=== PATIENT | female | born 1945 | race African-American/Black ===

== ENCOUNTER 2018-08-14 11:47 | Inpatient (IN) | payer MEDICARE, OTHER ==
--- NOTE | 2018-08-14 12:29 | PDOC ---
History of Present Illness - General Chief Complaint: Revisit, Lab Variance Stated Complaint: SENT BY PCP Time Seen by Provider: 08/14/18 12:28 History Source: Patient Exam Limitations: No Limitations - History of Present Illness Initial Comments: 08/14/18 12:55 73 yo F with a hx of HTN, DM, and CKD presents to the emergency department upon referral from her PMD for worsening BUN/Creatinine function. Per the patient, she was referred to our emergency department from her PMD Dr. Dye. She states that she has had generalized weakness without FND for 1 week with concurrent 3 weeks of worsening bilateral lower extremity edema. Endorses the followin lb weight loss in 3 months. Denies the following: fever, chills, nausea, vomiting, chest pain, SOB, abdominal pain, dysuria, hematuria, increased urinary frequency, diarrhea, and melena. Denies hx of DVT/PE, recent travels, and recent surgery. Allergies: NKDA Social: Denies tobacco, alcohol, and substance abuse. Past History - Past Medical History Allergies/Adverse Reactions: Allergies Allergy/AdvReac Type Severity Reaction Status Date / Time No Known Allergies Allergy Verified 08/14/18 11:53 Home Medications: Ambulatory Orders Amlodipine Bes/Olmesartan Med [Godfrey 10-40 mg Tablet] 1 each PO DAILY 08/14/18 Aspirin [ASA -] 81 mg PO DAILY 08/14/18 Linagliptin [Tradjenta] 5 mg PO DAILY 08/14/18 Mirtazapine 45 mg PO HS 08/14/18 Omeprazole 40 mg PO DAILY 08/14/18 Ranolazine [Ranolazine ER] 500 mg PO BID 08/14/18 Simvastatin 20 mg PO DAILY 08/14/18 COPD: No Diabetes: Yes HTN: Yes - Suicide/Smoking/Psychosocial Hx Smoking Status: No Smoking History: Never smoked Have you smoked in the past 12 months: No Number of Cigarettes Smoked Daily: 0 Information on smoking cessation initiated: No Hx Alcohol Use: No Drug/Substance Use Hx: No Review of Systems - Review of Systems Able to Perform ROS?: Yes Is the patient limited Hebrew proficient: No Constitutional: Yes: Weakness. No: Chills, Diaphoresis, Fever HEENTM: No: Eye Pain, Recent change in vision, Ear Pain, Nose Pain, Throat Pain , Mouth Pain Respiratory: No: Cough, Shortness of Breath, SOB with Exertion Cardiac (ROS): No: Chest Pain, Lightheadedness, Palpitations, Syncope, Chest Tightness ABD/GI: Yes: Poor Appetite, Poor Fluid Intake. No: Constipated, Diarrhea, Nausea, Rectal Bleeding, Vomiting, Tarry Stools : No: Burning, Dysuria, Hematuria, Incontinence Musculoskeletal: No: Back Pain, Joint Pain, Neck Pain Integumentary: No: Bruising, Erythema, Rash Neurological: No: Headache, Numbness, Tingling, Tremors Psychiatric: Yes: Change in Appetite Endocrine: Yes: Unexplained Weight Loss Hematologic/Lymphatic: No: Easy Bleeding *Physical Exam - Vital Signs Last Vital Signs Temp Pulse Resp BP Pulse Ox 98.2 F 94 H 16 139/70 100 08/14/18 11:49 08/14/18 11:49 08/14/18 11:49 08/14/18 11:49 08/14/18 11:49 - Physical Exam General Appearance: Yes: Nourished, Appropriately Dressed. No: Apparent Distress, Intoxicated HEENT: positive: EOMI, CHRISTOPHER, Normal Voice, Symmetrical, Pharynx Normal, Hearing Grossly Normal. negative: Pale Conjunctivae, Scleral Icterus (R), Scleral Icterus (L), Muffled/Hoarse voice, Pharyngeal Erythema, Tonsillar Exudate, Tonsillar Erythema, Nasal Congestion, Rhinorrhea, Excessive drooling Neck: positive: Trachea midline, Supple. negative: Tender, Lymphadenopathy (R) , Lymphadenopathy (L), Tender lateral, Tender midline Respiratory/Chest: positive: Lungs Clear, Normal Breath Sounds. negative: Chest Tender, Respiratory Distress, Accessory Muscle Use, Decreased Breath Sounds, Rhonchi, Stridor, Wheezing Cardiovascular: positive: Regular Rhythm, Regular Rate, S1, S2. negative: Systolic Murmur Gastrointestinal/Abdominal: positive: Normal Bowel Sounds, Flat, Soft. negative : Tender Lymphatic: negative: Adenopathy Musculoskeletal: positive: Normal Inspection. negative: CVA Tenderness, CVA Tenderness (R), CVA Tenderness (L), Vertebral Tenderness Extremity: positive: Normal Capillary Refill, Normal Range of Motion, Swelling ( 2+ pitting edema bilateral LE). negative: Normal Inspection, Tender, Calf Tenderness Integumentary: positive: Normal Color, Dry, Warm. negative: Rash, Swelling, Ecchymosis Neurologic: positive: headhunter II-XII NML intact, Fully Oriented, Alert, Normal Mood/ Affect, Normal Response, Motor Strength 5/5. negative: EOM Palsy, Facial Droop , Sensory Deficit ED Treatment Course - LABORATORY CBC & Chemistry Diagram: 08/17/18 10:25 08/17/18 10:25 Medical Decision Making - Medical Decision Making 73 yo F with a hx of HTN, DM, and CKD presents to the emergency department upon referral from her PMD for worsening BUN/Creatinine function. Initial vitals: Initial Vital Signs Temp Pulse Resp BP Pulse Ox 98.2 F 94 H 16 139/70 100 08/14/18 11:49 08/14/18 11:49 08/14/18 11:49 08/14/18 11:49 08/14/18 11:49 Work up: ddx: MELISA on CKD vs ESRD vs nephropathy induced secondary to renal artery stenosis vs iGA nephropathy Laboratory Tests 08/14/18 08/14/18 13:15 13:15 WBC 5.7 RBC 2.82 L Hgb 8.8 L Hct 27.0 L MCV 95.5 MCH 31.2 MCHC 32.6 RDW 14.9 Plt Count 412 MPV 8.3 Absolute Neuts (auto) 5.0 Neutrophils % 86.7 H Lymphocytes % 8.8 Monocytes % 3.1 L Eosinophils % 0.2 Basophils % 1.2 Nucleated RBC % 0 Sodium 137 Potassium 5.5 H Chloride 110 H Carbon Dioxide 18 L Anion Gap 9 BUN 70 H Creatinine 7.5 H* Creat Clearance w eGFR 5.31 Random Glucose 205 H Calcium 9.0 Total Bilirubin 0.3 AST 29 ALT 16 Alkaline Phosphatase 93 Creatine Kinase 108 Troponin I 0.03 Total Protein 7.2 Albumin 3.3 L creatinine 7.5 with BUN of 70. Patient has a hemoglobin of 8.8. anemia likely causing the weakness with the concurrent MELISA on CKD. EKG shows NSR without T wave peaks. No st elevations or depressions. potassium of 5.5. CXR shows no infiltrate or effusion. Patient to be admitted for further work up for MELISA on CKD. Dispo: Admit *DC/Admit/Observation/Transfer Diagnosis at time of Disposition: MELISA (acute kidney injury) - Referrals - Patient Instructions - Post Discharge Activity
[2018-08-14 13:20] LABS: BASO % 1.2 % (0-2.0); EOS % 0.2 % (0-4.5); HEMOGLOBIN 8.8 GM/dL (10.7-15.3); LYMPH % 8.8 % (8-40); MCH 31.2 pg (25.7-33.7); MCHC 32.6 g/dl (32.0-36.0); MEAN CELL VOLUME 95.5 fl (80-96); MEAN PLT VOLUME 8.3 fl (7.5-11.1); MONO % 3.1 % (3.8-10.2); NEUT % 86.7 % (42.8-82.8); PLATELET COUNT 412 K/MM3 (134-434); RBC 2.82 M/mm3 (3.60-5.2); RDW 14.9 % (11.6-15.6); WHITE BLOOD COUNT 5.7 K/mm3 (4.0-10.0)
[2018-08-14 13:58] LABS: ALBUMIN 3.3 g/dl (3.4-5.0); ALK PHOS 93 U/L (45-117); ANION GAP 9 MMOL/L (8-16); BILIRUBIN,TOTAL 0.3 mg/dL (0.2-1); BLOOD UREA NITROGEN 70 mg/dL (7-18); CHLORIDE 110 mmol/L (98-107); CO2 18 mmol/L (21-32); GLUCOSE,RANDOM 205 mg/dL (74-106); POTASSIUM 5.5 mmol/L (3.5-5.1); SGOT/AST 29 U/L (15-37); SGPT/ALT 16 U/L (13-61); SODIUM 137 mmol/L (136-145); TOT PROT 7.2 g/dl (6.4-8.2)
--- NOTE | 2018-08-14 14:31 | PDOC ---
Documentation entered by Isaías Sloan SCRIBE, acting as scribe for Pina Saldana MD. Pina Saldana MD: This documentation has been prepared by the Nathalia del rosario Nirvannie, SCRIBE, under my direction and personally reviewed by me in its entirety. I confirm that the documentation accurately reflects all work, treatment, procedures, and medical decision making performed by me. Attending Attestation - Resident Resident Name: Neri Shah - ED Attending Attestation I have performed the following: I have examined & evaluated the patient, The case was reviewed & discussed with the resident, I agree w/resident's findings & plan - HPI HPI: 08/14/18 14:20 The patient is a 73 year old female, with a significant past medical history of HTN, DM, and CKD, who presents to the emergency department with, worsening CKD. While in the ED, patient endorses an associated 1 month of weakness, 3 weeks of blt LE edema, and 3 months of a 30lb weight loss. She denies any decrease in urinary output. Allergies: NKDA Primary Care Physician: Dr. Matthew Dye - Physicial Exam PE: 08/14/18 13:27 GENERAL: The patient is in no acute distress. ENT: Ears normal, nares patent, oropharynx clear without exudates. Moist mucous membranes. NECK: Normal range of motion, supple LUNGS: Breath sounds equal, clear to auscultation bilaterally. No wheezes, and no crackles. HEART:Regular rate and rhythm, normal S1 and S2 without murmur, rub or gallop. ABDOMEN: Soft, nontender, normoactive bowel sounds. EXTREMITIES: Normal range of motion, bilateral 2+ pitting edema to the knees. NEUROLOGICAL: Cranial nerves II through XII grossly intact. Normal speech. No focal neurological deficits. SKIN: Warm, Dry, normal turgor, no rashes or lesions noted. - Medical Decision Making 08/14/18 13:28 73 yo F h/o chronic renal insufficiency presenting with a complaint of generalized weakness Labs were done yesterday and reveal worsening renal insufficiency Pt makes urine No shortness of breath or chest pain Will do: Labs EKG Plan for admission 08/14/18 13:34 Twelve-lead EKG was performed and reviewed by me. There is normal sinus rhythm with a normal rate of 89 bpm. The axis is normal. The intervals are normal. There are no ST elevations or depressions. inferolateral t wave inversions. 08/14/18 13:35 CXR- cardiomegaly, no signs of effusion or infiltrate 08/14/18 14:30 Laboratory Tests 08/14/18 08/14/18 13:15 13:15 WBC 5.7 Hgb 8.8 L Hct 27.0 L Plt Count 412 Sodium 137 Potassium 5.5 H Chloride 110 H Carbon Dioxide 18 L Anion Gap 9 BUN 70 H Random Glucose 205 H Creatine Kinase 108 Troponin I 0.03 Will admit for further management Clinical Impression: renal insufficiency, initial presentation
[2018-08-14 14:41] LABS: CREATININE 7.5 mg/dL (0.55-1.3)
--- NOTE | 2018-08-14 16:23 | CONSULT ---
Consult Consult Specialty:: Nephrology Reason for Consultation:: MELISA - History of Present Illness Chief Complaint: sent in for worsening renal function History of Present Illness: Pt is a 73 year old female with pmhx of DM, HTN, and CKD who was sent in for worsening renal failure. She denies history of CKD. She does not follow up with a npehrologist. She denies shortness of breath but does complain of lower ext edema. She denies dysuria or hematuria. She denies nsaid use. She denies family hx of CKD. She does complain of increased weakness. She complains of poor appetite. She has decreased urine output as well. - History Source History Provided By: Patient, Medical Record - Past Medical History Cardio/Vascular: Yes: HTN, Hyperlipdemia Gastrointestinal: Yes: GERD Endocrine: Yes: Diabetes Mellitus - Alcohol/Substance Use Hx Alcohol Use: No - Smoking History Smoking history: Never smoked Have you smoked in the past 12 months: No Aproximately how many cigarettes per day: 0 Home Medications - Allergies Allergies/Adverse Reactions: Allergies Allergy/AdvReac Type Severity Reaction Status Date / Time No Known Allergies Allergy Verified 08/14/18 11:53 - Home Medications Home Medications: Ambulatory Orders Amlodipine Bes/Olmesartan Med [Godfrey 10-40 mg Tablet] 1 each PO DAILY 08/14/18 Aspirin [ASA -] 81 mg PO DAILY 08/14/18 Linagliptin [Tradjenta] 5 mg PO DAILY 08/14/18 Mirtazapine 45 mg PO HS 08/14/18 Omeprazole 40 mg PO DAILY 08/14/18 Ranolazine [Ranolazine ER] 500 mg PO BID 08/14/18 Simvastatin 20 mg PO DAILY 08/14/18 Family Disease History - Family Disease History Family History: Denies Review of Systems - Review of Systems Constitutional: reports: No Symptoms, Malaise, Unintentional Wgt. Loss Eyes: reports: No Symptoms HENT: reports: No Symptoms Neck: reports: No Symptoms Cardiovascular: reports: No Symptoms Respiratory: reports: No Symptoms Gastrointestinal: reports: No Symptoms Genitourinary: reports: No Symptoms Musculoskeletal: reports: No Symptoms Integumentary: reports: No Symptoms Neurological: reports: No Symptoms Endocrine: reports: No Symptoms Hematology/Lymphatic: reports: No Symptoms Psychiatric: reports: No Symptoms Physical Exam Vital Signs: Vital Signs Temperature 98 F 08/14/18 15:14 Pulse Rate 73 08/14/18 15:14 Respiratory Rate 18 08/14/18 15:14 Blood Pressure 135/63 08/14/18 15:14 O2 Sat by Pulse Oximetry (%) 99 08/14/18 15:14 Constitutional: Yes: Calm Eyes: Yes: Conjunctiva Clear HENT: Yes: Atraumatic Neck: Yes: Supple Cardiovascular: Yes: S1, S2 Respiratory: Yes: CTA Bilaterally Gastrointestinal: Yes: Soft Renal/: Yes: WNL Musculoskeletal: Yes: WNL Edema: Yes Edema: LLE: 1+, RLE: 1+ Neurological: Yes: Oriented Psychiatric: Yes: Oriented Labs: CBC, BMP 08/14/18 13:15 08/14/18 13:15 Laboratory Tests 08/14/18 08/14/18 13:15 13:15 WBC 5.7 Hgb 8.8 L Plt Count 412 Sodium 137 Potassium 5.5 H Chloride 110 H Carbon Dioxide 18 L Anion Gap 9 BUN 70 H Creatinine 7.5 H* Imaging - Results Chest X-ray: Report Reviewed Ultrasound: Report Reviewed Problem List - Problems (1) MELISA (acute kidney injury) Code(s): N17.9 - ACUTE KIDNEY FAILURE, UNSPECIFIED (2) CKD (chronic kidney disease) Code(s): N18.9 - CHRONIC KIDNEY DISEASE, UNSPECIFIED (3) HTN (hypertension) Code(s): I10 - ESSENTIAL (PRIMARY) HYPERTENSION Assessment/Plan Current Medications Generic Name Dose Route Start Last Admin Trade Name Freq PRN Reason Stop Dose Admin Amlodipine Besylate 10 mg 08/15/18 10:00 Norvasc - PO DAILY [facility] Aspirin 81 mg 08/15/18 10:00 Ecotrin - PO DAILY [facility] Heparin Sodium (Porcine) 5,000 unit 08/14/18 22:00 Heparin - SQ BID [facility] Insulin Aspart 1 vial 08/14/18 16:30 Novolog Vial Sliding Scale - SQ ACHS [facility] Protocol Mirtazapine 45 mg 08/14/18 22:00 Remeron - PO HS [facility] Pantoprazole Sodium 40 mg 08/15/18 10:00 Protonix - PO DAILY [facility] Ranolazine 500 mg 08/14/18 22:00 Ranexa - PO BID ASHELY Impression 1. MELISA 2. CKD 3. DM 4. HTN 5. weight loss 6. gerd 7. 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
--- NOTE | 2018-08-14 17:03 | HP ---
Admitting History and Physical - Primary Care Physician PCP: Matthew Dye - Admission Chief Complaint: elevated BUN/Cr History of Present Illness: Patient is a 73 y/o female with past medical history of DM, HTN, and CKD. Patient was sent from PMD office for worsening renal failure with elevated BUN/ Cr 70/7.3. Patient has been non-compliant with following up with nephrology. In ER labs show BUN/Cr 70/7.5. History Source: Patient Limitations to Obtaining History: No Limitations - Past Medical History Cardiovascular: Yes: HTN, Hyperlipdemia Gastrointestinal: Yes: GERD Renal/: Yes: Other (CKD) Endocrine: Yes: Diabetes Mellitus - Past Surgical History Past Surgical History: Yes: None - Smoking History Smoking history: Never smoked Have you smoked in the past 12 months: No Aproximately how many cigarettes per day: 0 - Alcohol/Substance Use Hx Alcohol Use: No - Social History Usual Living Arrangement: Yes: Alone ADL: Independent History of Recent Travel: No Home Medications - Allergies Allergies/Adverse Reactions: Allergies Allergy/AdvReac Type Severity Reaction Status Date / Time No Known Allergies Allergy Verified 08/14/18 11:53 - Home Medications Home Medications: Ambulatory Orders Amlodipine Bes/Olmesartan Med [Godfrey 10-40 mg Tablet] 1 each PO DAILY 08/14/18 Aspirin [ASA -] 81 mg PO DAILY 08/14/18 Linagliptin [Tradjenta] 5 mg PO DAILY 08/14/18 Mirtazapine 45 mg PO HS 08/14/18 Omeprazole 40 mg PO DAILY 08/14/18 Ranolazine [Ranolazine ER] 500 mg PO BID 08/14/18 Simvastatin 20 mg PO DAILY 08/14/18 Review of Systems - Review of Systems Constitutional: reports: Unintentional Wgt. Loss, Weakness Eyes: reports: Blurred Vision HENT: reports: No Symptoms Neck: reports: No Symptoms Cardiovascular: reports: No Symptoms Respiratory: reports: No Symptoms Gastrointestinal: reports: No Symptoms Genitourinary: reports: No Symptoms Breasts: reports: No Symptoms Reported Musculoskeletal: reports: No Symptoms Integumentary: reports: No Symptoms Neurological: reports: No Symptoms Endocrine: reports: No Symptoms Hematology/Lymphatic: reports: No Symptoms Psychiatric: reports: No Symptoms Physical Examination Vital Signs: Vital Signs Temperature 98 F 08/14/18 15:14 Pulse Rate 73 08/14/18 15:14 Respiratory Rate 18 08/14/18 15:14 Blood Pressure 135/63 08/14/18 15:14 O2 Sat by Pulse Oximetry (%) 99 08/14/18 15:14 Constitutional: Yes: No Distress, Calm Eyes: Yes: Conjunctiva Clear HENT: Yes: Atraumatic Neck: Yes: Supple Cardiovascular: Yes: Regular Rate and Rhythm Respiratory: Yes: Regular, CTA Bilaterally Gastrointestinal: Yes: Normal Bowel Sounds, Soft Musculoskeletal: Yes: Muscle Weakness Extremities: Yes: WNL Edema: Yes Edema: LLE: 1+, RLE: 1+ Neurological: Yes: Alert, Oriented Psychiatric: Yes: Alert, Oriented Labs: CBC, BMP 08/14/18 13:15 08/14/18 13:15 Imaging - Results Chest X-ray: Report Reviewed Ultrasound: Report Reviewed Problem List - Problems (1) Diabetes mellitus Assessment/Plan: -BGM ACHS -ISS -HgA1c ordered Code(s): E11.9 - TYPE 2 DIABETES MELLITUS WITHOUT COMPLICATIONS (2) CKD (chronic kidney disease) Assessment/Plan: -renal on board -BUN/Cr 70/7.5 -avoid NSAIDs and nephrotoxin -monitor renal function daily -Renal US shows R hydronephrosis , no left hydronephrosis, renal cortices bilaterally demonstrate altered echogenicity suggestive of medical renal disease , possible non obstructing 0.3cm left renal calculus. Code(s): N18.9 - CHRONIC KIDNEY DISEASE, UNSPECIFIED (3) HTN (hypertension) Assessment/Plan: -amlodipine -low Na diet Code(s): I10 - ESSENTIAL (PRIMARY) HYPERTENSION Assessment/Plan see problem list dvt ppx
[2018-08-14] MEDS: INSULIN SLIDING SCALE (NOVOLOG) 1 VIAL SQ SCH ×2 (17:12→21:17)
[2018-08-14] MEDS ORDERED: amLODIPine BESYLATE 2.5 MG TABLET (FP) PO ONE (18:15)
[2018-08-14] MEDS: SODIUM CHLORIDE 0.45% 1,000 ML IV SCH (18:26)
--- NOTE | 2018-08-14 18:44 | CON.GU ---
Consult Consult Specialty:: urology Referred by:: Charles Reason for Consultation:: acute renal failure with right hydronephrosis - History of Present Illness Chief Complaint: right hydronephrosis with acute renal failure History of Present Illness: Patient with history of acute renal failure with right hydronephrosis. The patient has a baseline history of chronic kidney disease which got worse and required admission. The patient is comforbable and is making urine and denies nause, vomiting, fever, or gross hematuria. - History Source History Provided By: Patient Limitations to Obtaining History: No Limitations - Past Medical History Cardio/Vascular: Yes: HTN, Hyperlipdemia Gastrointestinal: Yes: GERD Renal/: Yes: Other (CKD) Endocrine: Yes: Diabetes Mellitus - Past Surgical History Past Surgical History: Yes: None - Alcohol/Substance Use Hx Alcohol Use: No - Smoking History Smoking history: Never smoked Have you smoked in the past 12 months: No Aproximately how many cigarettes per day: 0 - Social History ADL: Independent History of Recent Travel: No Home Medications - Allergies Allergies/Adverse Reactions: Allergies Allergy/AdvReac Type Severity Reaction Status Date / Time No Known Allergies Allergy Verified 08/14/18 11:53 - Home Medications Home Medications: Ambulatory Orders Amlodipine Bes/Olmesartan Med [Godfrey 10-40 mg Tablet] 1 each PO DAILY 08/14/18 Aspirin [ASA -] 81 mg PO DAILY 08/14/18 Linagliptin [Tradjenta] 5 mg PO DAILY 08/14/18 Mirtazapine 45 mg PO HS 08/14/18 Omeprazole 40 mg PO DAILY 08/14/18 Ranolazine [Ranolazine ER] 500 mg PO BID 08/14/18 Simvastatin 20 mg PO DAILY 08/14/18 Physical Exam- Vital Signs: Vital Signs Temperature 97.3 F L 08/14/18 16:45 Pulse Rate 88 08/14/18 16:45 Respiratory Rate 18 08/14/18 16:45 Blood Pressure 165/90 08/14/18 16:45 O2 Sat by Pulse Oximetry (%) 99 08/14/18 15:14 Constitutional: Yes: No Distress, Calm Eyes: Yes: WNL, Conjunctiva Clear, EOM Intact HENT: Yes: WNL, Atraumatic, Normocephalic Neck: Yes: WNL, Supple, Trachea Midline Cardiovascular: Yes: WNL, Regular Rate and Rhythm Respiratory: Yes: WNL, Regular Gastrointestinal: Yes: WNL, Normal Bowel Sounds, Soft Renal/: Yes: WNL Kidneys: Yes: WNL, Mass External Genitalia: Yes: WNL Labs: CBC, BMP 08/14/18 13:15 08/14/18 13:15 Imaging - Results Ultrasound: Report Reviewed Assessment/Plan imp right hydronephrosis acute renal insufficiency plan right percutaneous nephrostomy d/c asa transfuse platelets prior d/c heparin 60 minutes spent with patient and staff coordinating nephrostomy placement
[2018-08-14 21:03] LABS: EPI CELLS 3.7 /HPF (0-5/HPF); URINE APPEARANCE CLEAR; URINE BACTERIA 11.5 /hpf (NEGATIVE); URINE BILIRUBIN NEGATIVE (NEGATIVE); URINE CASTS 1 /lpf (0-8); URINE COLOR YELLOW; URINE GLUCOSE (UA) TRACE (NEGATIVE); URINE KETONE NEGATIVE (NEGATIVE); URINE LEUK ESTERASE 1+ (NEGATIVE); URINE NITRITE NEGATIVE (NEGATIVE); URINE PROTEIN 3+ (NEGATIVE); URINE RBC 3 /hpf (0-4); URINE UROBILINOGEN 0.2 mg/dL (0.2-1.0); URINE WBC 36 /hpf (0-5)
[2018-08-14] MEDS: RANOLAZINE E.R. 500 MG TABLET (FP) PO SCH (21:17)
[2018-08-14] MEDS: MIRTAZAPINE 15 MG TABLET (FP) PO SCH (21:18)
[2018-08-14] MEDS ORDERED: HEPARIN NA (PORCINE) 5,000 UNITS/ML 1ML VIAL SQ SCH (22:00)
[2018-08-15] MEDS: INSULIN SLIDING SCALE (NOVOLOG) 1 VIAL SQ SCH ×4 (06:51→21:49)
[2018-08-15 08:07] LABS: BASO % 0.9 % (0-2.0); EOS % 2.7 % (0-4.5); HEMATOCRIT 25.2 % (32.4-45.2); HEMOGLOBIN 8.3 GM/dL (10.7-15.3); LYMPH % 12.1 % (8-40); MCH 31.2 pg (25.7-33.7); MCHC 32.8 g/dl (32.0-36.0); MEAN PLT VOLUME 8.6 fl (7.5-11.1); MONO % 5.1 % (3.8-10.2); NEUT % 79.2 % (42.8-82.8); PLATELET COUNT 495 K/MM3 (134-434); RBC 2.65 M/mm3 (3.60-5.2); RDW 14.8 % (11.6-15.6); WHITE BLOOD COUNT 6.2 K/mm3 (4.0-10.0)
[2018-08-15 08:30] LABS: ALBUMIN 2.7 g/dl (3.4-5.0); ALK PHOS 83 U/L (45-117); ANION GAP 8 MMOL/L (8-16); BILIRUBIN,TOTAL 0.4 mg/dL (0.2-1); BLOOD UREA NITROGEN 68 mg/dL (7-18); CALCIUM 8.4 mg/dL (8.5-10.1); CHLORIDE 112 mmol/L (98-107); CO2 19 mmol/L (21-32); CREATININE 7.3 mg/dL (0.55-1.3); GLUCOSE,RANDOM 94 mg/dL (74-106); MAGNESIUM 1.9 mg/dL (1.8-2.4); PHOSPHOROUS 4.2 mg/dL (2.5-4.9); POTASSIUM 5.2 mmol/L (3.5-5.1); SGOT/AST 19 U/L (15-37); SGPT/ALT 17 U/L (13-61); SODIUM 138 mmol/L (136-145); TOT PROT 6.2 g/dl (6.4-8.2)
[2018-08-15] MEDS: RANOLAZINE E.R. 500 MG TABLET (FP) PO SCH ×2 (09:33→21:29)
[2018-08-15] MEDS: PANTOPRAZOLE 40 MG TABLET (FP) PO SCH (09:33)
[2018-08-15] MEDS: amLODIPine BESYLATE 10 MG TABLET (FP) PO SCH (09:33)
--- NOTE | 2018-08-15 09:44 | EKG ---
Test Reason : Blood Pressure : / mmHG Vent. Rate : 089 BPM Atrial Rate : 089 BPM P-R Int : 176 ms QRS Dur : 096 ms QT Int : 408 ms P-R-T Axes : 058 026 132 degrees QTc Int : 496 ms NORMAL SINUS RHYTHM T WAVE ABNORMALITY, CONSIDER INFEROLATERAL ISCHEMIA PROLONGED QT ABNORMAL ECG NO PREVIOUS ECGS AVAILABLE Confirmed by LINDA JONES MD ([id number]) on 08/15/2018 9:43:37 AM Referred By: Confirmed By:LINDA JONES MD
[2018-08-15 09:53] LABS: INR 0.94 (0.83-1.09); PROTHROMBIN TIME (PATIENT) 11.1 SEC (9.7-13.0)
[2018-08-15] MEDS ORDERED: ASPIRIN COATED 81 MG TABLET.EC PO SCH (10:00)
[2018-08-15] MEDS ORDERED: MIDAZOLAM HCL 2 MG/2 ML SINGLE DOSE VIAL IVPUSH ONE (11:00)
--- NOTE | 2018-08-15 12:45 | PN ---
Progress Note, Physician - Current Medication List Current Medications: Active Medications Amlodipine Besylate (Norvasc -) 10 mg PO DAILY [facility] Last Admin: 08/15/18 09:33 Dose: 10 mg Sodium Chloride (1/2 Normal Saline) 1,000 mls @ 50 mls/hr IV ASDIR [facility] Stop: 08/15/18 16:31 Last Admin: 08/14/18 18:26 Dose: 50 mls/hr Insulin Aspart (Novolog Vial Sliding Scale -) 1 vial SQ [facility]; Protocol Last Admin: 08/15/18 12:32 Dose: Not Given Mirtazapine (Remeron -) 45 mg PO HS [facility] Last Admin: 08/14/18 21:18 Dose: 45 mg Pantoprazole Sodium (Protonix -) 40 mg PO DAILY [facility] Last Admin: 08/15/18 09:33 Dose: 40 mg Ranolazine (Ranexa -) 500 mg PO BID [facility] Last Admin: 08/15/18 09:33 Dose: 500 mg - Objective Vital Signs: Vital Signs Temperature 98 F 08/15/18 10:00 Pulse Rate 85 08/15/18 12:10 Respiratory Rate 18 08/15/18 12:10 Blood Pressure 160/80 08/15/18 12:10 O2 Sat by Pulse Oximetry (%) 100 08/15/18 11:00 Labs: CBC, BMP 08/15/18 06:00 08/15/18 06:00 INR, PTT INR 0.94 (0.83-1.09) 08/15/18 06:00 Problem List - Problems (1) Hydronephrosis Assessment/Plan: Renal US shows R hydronephrosis , no left hydronephrosis, renal cortices bilaterally demonstrate altered echogenicity suggestive of medical renal disease , possible non obstructing 0.3cm left renal calculus. urology--stent placement Code(s): N13.30 - UNSPECIFIED HYDRONEPHROSIS (2) MELISA (acute kidney injury) Assessment/Plan: -renal on board -BUN/Cr 70/7.5 -avoid NSAIDs and nephrotoxin -monitor renal function daily -ivf Code(s): N17.9 - ACUTE KIDNEY FAILURE, UNSPECIFIED (3) Diabetes mellitus Assessment/Plan: -BGM [facility] -ISS -HgA1c ordered Code(s): E11.9 - TYPE 2 DIABETES MELLITUS WITHOUT COMPLICATIONS (4) HTN (hypertension) Assessment/Plan: -amlodipine -low Na diet Code(s): I10 - ESSENTIAL (PRIMARY) HYPERTENSION
--- NOTE | 2018-08-15 15:59 | PN ---
Progress Note, Physician History of Present Illness: Pt seen and examined at bedside. She is awake and alert. She had her nephrostomy tube placed this morning. - Current Medication List Current Medications: Active Medications Amlodipine Besylate (Norvasc -) 10 mg PO DAILY [facility] Last Admin: 08/15/18 09:33 Dose: 10 mg Sodium Chloride (1/2 Normal Saline) 1,000 mls @ 50 mls/hr IV ASDIR [facility] Stop: 08/15/18 16:31 Last Admin: 08/14/18 18:26 Dose: 50 mls/hr Insulin Aspart (Novolog Vial Sliding Scale -) 1 vial SQ ACHS [facility]; Protocol Last Admin: 08/15/18 12:32 Dose: Not Given Metoprolol Succinate (Toprol Xl -) 50 mg PO DAILY [facility] Last Admin: 08/15/18 13:47 Dose: 50 mg Mirtazapine (Remeron -) 45 mg PO HS [facility] Last Admin: 08/14/18 21:18 Dose: 45 mg Pantoprazole Sodium (Protonix -) 40 mg PO DAILY [facility] Last Admin: 08/15/18 09:33 Dose: 40 mg Ranolazine (Ranexa -) 500 mg PO BID [facility] Last Admin: 08/15/18 09:33 Dose: 500 mg - Objective Vital Signs: Vital Signs Temperature 97.5 F L 08/15/18 14:40 Pulse Rate 77 08/15/18 14:40 Respiratory Rate 18 08/15/18 14:40 Blood Pressure 170/85 08/15/18 14:40 O2 Sat by Pulse Oximetry (%) 100 08/15/18 11:00 Constitutional: Yes: Calm Eyes: Yes: Conjunctiva Clear HENT: Yes: Atraumatic Neck: Yes: Supple Cardiovascular: Yes: S1, S2 Respiratory: Yes: CTA Bilaterally Gastrointestinal: Yes: Soft Genitourinary: Yes: Other (right nephrostomy tube) Musculoskeletal: Yes: WNL Neurological: Yes: Oriented Psychiatric: Yes: Oriented Labs: CBC, BMP 08/15/18 06:00 08/15/18 06:00 INR, PTT INR 0.94 (0.83-1.09) 08/15/18 06:00 Problem List - Problems (1) MELISA (acute kidney injury) Code(s): N17.9 - ACUTE KIDNEY FAILURE, UNSPECIFIED (2) CKD (chronic kidney disease) Code(s): N18.9 - CHRONIC KIDNEY DISEASE, UNSPECIFIED (3) HTN (hypertension) Code(s): I10 - ESSENTIAL (PRIMARY) HYPERTENSION Assessment/Plan Current Medications Generic Name Dose Route Start Last Admin Trade Name Freq PRN Reason Stop Dose Admin Amlodipine Besylate 10 mg 08/15/18 10:00 08/15/18 09:33 Norvasc - PO 10 mg DAILY ASHELY Administration Sodium Chloride 1,000 mls @ 50 mls/hr 08/14/18 16:30 08/14/18 18:26 1/2 Normal Saline IV 08/15/18 16:31 50 mls/hr ASDIR ASHELY Administration Insulin Aspart 1 vial 08/14/18 16:30 08/15/18 12:32 Novolog Vial Sliding Scale - SQ Not Given ACHS ASHELY Protocol Metoprolol Succinate 50 mg 08/15/18 13:45 08/15/18 13:47 Toprol Xl - PO 50 mg DAILY ASHELY Administration Mirtazapine 45 mg 08/14/18 22:00 08/14/18 21:18 Remeron - PO 45 mg HS ASHELY Administration Pantoprazole Sodium 40 mg 08/15/18 10:00 08/15/18 09:33 Protonix - PO 40 mg DAILY ASHELY Administration Ranolazine 500 mg 08/14/18 22:00 08/15/18 09:33 Ranexa - PO 500 mg BID ASHELY Administration Impression 1. MELISA 2. CKD 3. DM 4. HTN 5. weight loss 6. gerd 7. right side hydro Plan - pt s/p nephrostomy - cont fluids - repeat labs in am - follow renal workup - discussed plan with her daughter at length - hold arb - renal diet - avoid nsaids
--- NOTE | 2018-08-15 17:25 | CON.CARD ---
Consult Consult Specialty:: cardiology Reason for Consultation:: abnormal ECG - History of Present Illness History of Present Illness: 73 year old female with pmhx of DM, HTN, with worsening renal function and hydronephrosis sp percutanous nephrostomy. No ho CAD or arrhythmia. No dyspnea or chest pain. ECG showed diffuse T wave abnormality with mildly prolonged QT - Past Medical History Cardio/Vascular: Yes: HTN, Hyperlipdemia Gastrointestinal: Yes: GERD Renal/: Yes: Other (CKD) Endocrine: Yes: Diabetes Mellitus - Past Surgical History Past Surgical History: Yes: None - Alcohol/Substance Use Hx Alcohol Use: No - Smoking History Smoking history: Never smoked Have you smoked in the past 12 months: No Aproximately how many cigarettes per day: 0 - Social History ADL: Independent History of Recent Travel: No Home Medications - Allergies Allergies/Adverse Reactions: Allergies Allergy/AdvReac Type Severity Reaction Status Date / Time No Known Allergies Allergy Verified 08/14/18 11:53 - Home Medications Home Medications: Ambulatory Orders Amlodipine Bes/Olmesartan Med [Godfrey 10-40 mg Tablet] 1 each PO DAILY 08/14/18 Aspirin [ASA -] 81 mg PO DAILY 08/14/18 Linagliptin [Tradjenta] 5 mg PO DAILY 08/14/18 Mirtazapine 45 mg PO HS 08/14/18 Omeprazole 40 mg PO DAILY 08/14/18 Ranolazine [Ranolazine ER] 500 mg PO BID 08/14/18 Simvastatin 20 mg PO DAILY 08/14/18 Review of Systems - Review of Systems Constitutional: reports: No Symptoms Eyes: reports: No Symptoms HENT: reports: No Symptoms Neck: reports: No Symptoms Cardiovascular: reports: No Symptoms, Edema. denies: Chest Pain, Shortness of Breath Respiratory: reports: No Symptoms Gastrointestinal: reports: No Symptoms Vital Signs: Vital Signs Temperature 97.5 F L 08/15/18 14:40 Pulse Rate 77 08/15/18 14:40 Respiratory Rate 18 08/15/18 14:40 Blood Pressure 170/85 08/15/18 14:40 O2 Sat by Pulse Oximetry (%) 100 08/15/18 11:00 Constitutional: Yes: No Distress, Cachectic Eyes: Yes: Conjunctiva Clear, EOM Intact HENT: Yes: Atraumatic, Normocephalic Neck: Yes: Supple, Trachea Midline Respiratory: Yes: Regular, CTA Bilaterally Gastrointestinal: Yes: Normal Bowel Sounds, Soft Cardiovascular: Yes: Regular Rate and Rhythm JVD: No Carotid Bruit: No PMI: Non-Displaced Heart Sounds: Yes: S1, S2 Murmur: No: Systolic Murmur, Diastolic Murmur Edema: Yes Edema: LLE: 1+, RLE: 1+ - Other Data Labs, Other Data: CBC, BMP 08/15/18 06:00 08/15/18 06:00 INR, PTT INR 0.94 (0.83-1.09) 08/15/18 06:00 NSR nl Ruskin Prolonged QT interval QTc 496 Diffuse T wave abnormality. Problem List - Problems (1) MELISA (acute kidney injury) Code(s): N17.9 - ACUTE KIDNEY FAILURE, UNSPECIFIED (2) HTN (hypertension) Code(s): I10 - ESSENTIAL (PRIMARY) HYPERTENSION Assessment/Plan 73 year old female with pmhx of DM, HTN, with worsening renal function and hydronephrosis sp percutanous nephrostomy. No ho CAD or arrhythmia. No dyspnea or chest pain. ECG showed diffuse T wave abnormality with mildly prolonged QT Continue medical therapy of MELISA. No heat failure or angina. Avoid QT prolonging agents. Ramu see as needed
--- NOTE | 2018-08-15 19:15 | HOSP ---
Subjective - Review of Symptoms General: Yes: Other HEENT: Yes: Other Cardiovascular: Yes: Other Musculoskeletal: Yes: No Symptoms Physical Examination Vital Signs: Vital Signs Temperature 97.9 F 08/15/18 18:15 Pulse Rate 78 08/15/18 18:15 Respiratory Rate 18 08/15/18 18:15 Blood Pressure 153/83 08/15/18 18:15 O2 Sat by Pulse Oximetry (%) 100 08/15/18 11:00 Constitutional: Yes: Well Nourished Eyes: Yes: WNL HENT: Yes: WNL Neck: Yes: WNL Cardiovascular: Yes: WNL Respiratory: Yes: WNL Gastrointestinal: Yes: WNL Labs: CBC, BMP 08/15/18 06:00 08/15/18 06:00 Hospitalist Encounter Assessment: Called to see patient for increased drainage of sero sang/bloody drainage into right nephrostomy tube placed today in IR. Approximately 325 cc drainaged from nephrostomy tube, small amounts of clots seen inside drainage bag patient asymptomatic, denies any back pain, dizziness or any other malaise surgical site intact VSS stable plan: cbc now, monitor output patient aware and agrees with plan
[2018-08-15] MEDS: SODIUM CHLORIDE 0.45% 1,000 ML IV SCH (20:54)
[2018-08-15] MEDS: MIRTAZAPINE 15 MG TABLET (FP) PO SCH (21:28)
[2018-08-15 21:54] LABS: BASO % 0.7 % (0-2.0); EOS % 1.9 % (0-4.5); HEMATOCRIT 23.8 % (32.4-45.2); HEMOGLOBIN 7.9 GM/dL (10.7-15.3); LYMPH % 13.6 % (8-40); MCH 31.8 pg (25.7-33.7); MCHC 33.3 g/dl (32.0-36.0); MEAN CELL VOLUME 95.3 fl (80-96); MEAN PLT VOLUME 8.7 fl (7.5-11.1); MONO % 7.5 % (3.8-10.2); NEUT % 76.3 % (42.8-82.8); PLATELET COUNT 459 K/MM3 (134-434); RBC 2.49 M/mm3 (3.60-5.2); RDW 14.6 % (11.6-15.6); WHITE BLOOD COUNT 7.4 K/mm3 (4.0-10.0)
[2018-08-16] MEDS: INSULIN SLIDING SCALE (NOVOLOG) 1 VIAL SQ SCH ×4 (06:07→21:22)
[2018-08-16 07:40] LABS: BASO % 0.8 % (0-2.0); EOS % 1.7 % (0-4.5); HEMATOCRIT 24.7 % (32.4-45.2); HEMOGLOBIN 8.2 GM/dL (10.7-15.3); LYMPH % 13.9 % (8-40); MCH 31.8 pg (25.7-33.7); MCHC 33.4 g/dl (32.0-36.0); MEAN CELL VOLUME 95.1 fl (80-96); MEAN PLT VOLUME 8.6 fl (7.5-11.1); MONO % 7.5 % (3.8-10.2); NEUT % 76.1 % (42.8-82.8); PLATELET COUNT 466 K/MM3 (134-434); RBC 2.59 M/mm3 (3.60-5.2); RDW 15.1 % (11.6-15.6); WHITE BLOOD COUNT 8.2 K/mm3 (4.0-10.0)
[2018-08-16 08:01] LABS: ALBUMIN 2.5 g/dl (3.4-5.0); ALK PHOS 83 U/L (45-117); ANION GAP 9 MMOL/L (8-16); BILIRUBIN,TOTAL 0.8 mg/dL (0.2-1); BLOOD UREA NITROGEN 69 mg/dL (7-18); CALCIUM 8.9 mg/dL (8.5-10.1); CHLORIDE 110 mmol/L (98-107); CO2 19 mmol/L (21-32); CREATININE 6.9 mg/dL (0.55-1.3); GLUCOSE,RANDOM 91 mg/dL (74-106); POTASSIUM 5.1 mmol/L (3.5-5.1); SGOT/AST 22 U/L (15-37); SGPT/ALT 12 U/L (13-61); SODIUM 139 mmol/L (136-145)
[2018-08-16] MEDS: RANOLAZINE E.R. 500 MG TABLET (FP) PO SCH ×2 (09:35→21:23)
[2018-08-16] MEDS: PANTOPRAZOLE 40 MG TABLET (FP) PO SCH (09:35)
[2018-08-16] MEDS: amLODIPine BESYLATE 10 MG TABLET (FP) PO SCH (09:35)
--- NOTE | 2018-08-16 15:57 | PN ---
Progress Note, Physician History of Present Illness: s/p nephrostomy - Current Medication List Current Medications: Active Medications Amlodipine Besylate (Norvasc -) 10 mg PO DAILY [facility] Last Admin: 08/16/18 09:35 Dose: 10 mg Insulin Aspart (Novolog Vial Sliding Scale -) 1 vial SQ ACHS [facility]; Protocol Last Admin: 08/16/18 12:05 Dose: Not Given Metoprolol Succinate (Toprol Xl -) 50 mg PO DAILY [facility] Last Admin: 08/16/18 09:35 Dose: 50 mg Mirtazapine (Remeron -) 45 mg PO HS [facility] Last Admin: 08/15/18 21:28 Dose: 45 mg Pantoprazole Sodium (Protonix -) 40 mg PO DAILY [facility] Last Admin: 08/16/18 09:35 Dose: 40 mg Ranolazine (Ranexa -) 500 mg PO BID [facility] Last Admin: 08/16/18 09:35 Dose: 500 mg - Objective Vital Signs: Vital Signs Temperature 98.3 F 08/16/18 14:42 Pulse Rate 73 08/16/18 14:42 Respiratory Rate 18 08/16/18 14:42 Blood Pressure 146/70 08/16/18 14:42 O2 Sat by Pulse Oximetry (%) 100 08/16/18 09:00 Cardiovascular: Yes: Regular Rate and Rhythm Respiratory: Yes: Regular, CTA Bilaterally Gastrointestinal: Yes: Normal Bowel Sounds, Soft. No: Tenderness Genitourinary: Yes: Hematuria, Other (nephrostomy) Labs: CBC, BMP 08/16/18 06:20 08/16/18 06:20 INR, PTT INR 0.94 (0.83-1.09) 08/15/18 06:00 Problem List - Problems (1) Hydronephrosis Assessment/Plan: Renal US shows R hydronephrosis , no left hydronephrosis, renal cortices bilaterally demonstrate altered echogenicity suggestive of medical renal disease , possible non obstructing 0.3cm left renal calculus. urology-- s/p nephrostomy--draining bloody Code(s): N13.30 - UNSPECIFIED HYDRONEPHROSIS (2) MELISA (acute kidney injury) Assessment/Plan: -renal on board -BUN/Cr 69/6.9 -avoid NSAIDs and nephrotoxin -monitor renal function daily -ivf Code(s): N17.9 - ACUTE KIDNEY FAILURE, UNSPECIFIED (3) Diabetes mellitus Assessment/Plan: -BGM ACHS -ISS -HgA1c ordered Code(s): E11.9 - TYPE 2 DIABETES MELLITUS WITHOUT COMPLICATIONS (4) HTN (hypertension) Assessment/Plan: -amlodipine -low Na diet Code(s): I10 - ESSENTIAL (PRIMARY) HYPERTENSION
--- NOTE | 2018-08-16 16:40 | PN ---
Progress Note, Physician History of Present Illness: Pt seen and examined at bedside. She is awake and alert. She denies shortness of breath. - Current Medication List Current Medications: Active Medications Amlodipine Besylate (Norvasc -) 10 mg PO DAILY [facility] Last Admin: 08/16/18 09:35 Dose: 10 mg Sodium Chloride (1/2 Normal Saline) 1,000 mls @ 100 mls/hr IV ASDIR [facility] Insulin Aspart (Novolog Vial Sliding Scale -) 1 vial SQ ACHS [facility]; Protocol Last Admin: 08/16/18 12:05 Dose: Not Given Metoprolol Succinate (Toprol Xl -) 50 mg PO DAILY [facility] Last Admin: 08/16/18 09:35 Dose: 50 mg Mirtazapine (Remeron -) 45 mg PO HS [facility] Last Admin: 08/15/18 21:28 Dose: 45 mg Pantoprazole Sodium (Protonix -) 40 mg PO DAILY [facility] Last Admin: 08/16/18 09:35 Dose: 40 mg Ranolazine (Ranexa -) 500 mg PO BID [facility] Last Admin: 08/16/18 09:35 Dose: 500 mg - Objective Vital Signs: Vital Signs Temperature 98.3 F 08/16/18 14:42 Pulse Rate 73 08/16/18 14:42 Respiratory Rate 18 08/16/18 14:42 Blood Pressure 146/70 08/16/18 14:42 O2 Sat by Pulse Oximetry (%) 100 08/16/18 09:00 Constitutional: Yes: Calm Eyes: Yes: Conjunctiva Clear HENT: Yes: Atraumatic Neck: Yes: Supple Cardiovascular: Yes: S1, S2 Respiratory: Yes: CTA Bilaterally Gastrointestinal: Yes: Normal Bowel Sounds, Soft Genitourinary: Yes: Other (right nephrostomy with hematuria) Musculoskeletal: Yes: WNL Edema: Yes Edema: LLE: Trace, RLE: Trace Neurological: Yes: Oriented Psychiatric: Yes: Oriented Labs: CBC, BMP 08/16/18 06:20 08/16/18 06:20 INR, PTT INR 0.94 (0.83-1.09) 08/15/18 06:00 Problem List - Problems (1) MELISA (acute kidney injury) Code(s): N17.9 - ACUTE KIDNEY FAILURE, UNSPECIFIED (2) CKD (chronic kidney disease) Code(s): N18.9 - CHRONIC KIDNEY DISEASE, UNSPECIFIED (3) HTN (hypertension) Code(s): I10 - ESSENTIAL (PRIMARY) HYPERTENSION Assessment/Plan Current Medications Generic Name Dose Route Start Last Admin Trade Name Marlyn PRN Reason Stop Dose Admin Amlodipine Besylate 10 mg 08/15/18 10:00 08/16/18 09:35 Norvasc - PO 10 mg DAILY ASHELY Administration Sodium Chloride 1,000 mls @ 100 mls/hr 08/16/18 16:45 1/2 Normal Saline IV ASDIR ASHELY Insulin Aspart 1 vial 08/14/18 16:30 08/16/18 12:05 Novolog Vial Sliding Scale - SQ Not Given ACHS ASHELY Protocol Metoprolol Succinate 50 mg 08/15/18 13:45 08/16/18 09:35 Toprol Xl - PO 50 mg DAILY ASHELY Administration Mirtazapine 45 mg 08/14/18 22:00 08/15/18 21:28 Remeron - PO 45 mg HS ASHELY Administration Pantoprazole Sodium 40 mg 08/15/18 10:00 08/16/18 09:35 Protonix - PO 40 mg DAILY ASHELY Administration Ranolazine 500 mg 08/14/18 22:00 08/16/18 09:35 Ranexa - PO 500 mg BID ASHELY Administration Impression 1. MELISA 2. CKD 3. DM 4. HTN 5. weight loss 6. gerd 7. right side hydro Plan - restart fluids - urology follow up - monitor nephrostomy output - renal function is improving - repeat labs in am - renal workup is in progress - hold arb - renal diet - avoid nsaids
[2018-08-16] MEDS: SODIUM CHLORIDE 0.45% 1,000 ML IV SCH (16:51)
[2018-08-16 18:28] LABS: BASO % 0.8 % (0-2.0); EOS % 1.2 % (0-4.5); HEMATOCRIT 20.4 % (32.4-45.2); LYMPH % 11.5 % (8-40); MCHC 32.4 g/dl (32.0-36.0); MEAN CELL VOLUME 95.8 fl (80-96); MEAN PLT VOLUME 8.6 fl (7.5-11.1); MONO % 5.5 % (3.8-10.2); PLATELET COUNT 356 K/MM3 (134-434); RBC 2.12 M/mm3 (3.60-5.2); RDW 14.8 % (11.6-15.6)
[2018-08-16 18:29] LABS: HEMOGLOBIN 6.6 GM/dL (10.7-15.3); WHITE BLOOD COUNT 6.1 K/mm3 (4.0-10.0)
[2018-08-16] MEDS: MIRTAZAPINE 15 MG TABLET (FP) PO SCH (21:23)
[2018-08-17] MEDS ORDERED: METOPROLOL TARTRATE 25 MG TABLET (FP) PO ONE ×2 (01:41→03:27)
[2018-08-17] MEDS: INSULIN SLIDING SCALE (NOVOLOG) 1 VIAL SQ SCH ×4 (06:03→22:35)
[2018-08-17] MEDS ORDERED: hydrALAZINE HCL 10 MG TABLET PO SCH (06:30)
[2018-08-17] MEDS: PANTOPRAZOLE 40 MG TABLET (FP) PO SCH (09:34)
[2018-08-17] MEDS: RANOLAZINE E.R. 500 MG TABLET (FP) PO SCH ×2 (09:34→21:59)
[2018-08-17] MEDS: SODIUM CHLORIDE 0.45% 1,000 ML IV SCH ×4 (09:34→19:51)
[2018-08-17] MEDS: amLODIPine BESYLATE 10 MG TABLET (FP) PO SCH (09:34)
[2018-08-17 10:46] LABS: BASO % 0.7 % (0-2.0); EOS % 2.2 % (0-4.5); HEMATOCRIT 34.8 % (32.4-45.2); HEMOGLOBIN 11.6 GM/dL (10.7-15.3); LYMPH % 9.5 % (8-40); MCH 31.3 pg (25.7-33.7); MCHC 33.3 g/dl (32.0-36.0); MEAN CELL VOLUME 93.8 fl (80-96); MEAN PLT VOLUME 8.6 fl (7.5-11.1); MONO % 5.9 % (3.8-10.2); NEUT % 81.7 % (42.8-82.8); PLATELET COUNT 395 K/MM3 (134-434); RBC 3.71 M/mm3 (3.60-5.2); RDW 14.4 % (11.6-15.6); WHITE BLOOD COUNT 9.1 K/mm3 (4.0-10.0)
[2018-08-17 11:14] LABS: ALBUMIN 2.7 g/dl (3.4-5.0); ALK PHOS 86 U/L (45-117); ANION GAP 10 MMOL/L (8-16); BILIRUBIN,TOTAL 0.4 mg/dL (0.2-1); BLOOD UREA NITROGEN 65 mg/dL (7-18); CALCIUM 9.2 mg/dL (8.5-10.1); CHLORIDE 110 mmol/L (98-107); CO2 20 mmol/L (21-32); CREATININE 6.2 mg/dL (0.55-1.3); GLUCOSE,RANDOM 103 mg/dL (74-106); POTASSIUM 4.8 mmol/L (3.5-5.1); SGOT/AST 23 U/L (15-37); SGPT/ALT 14 U/L (13-61); SODIUM 141 mmol/L (136-145); TOT PROT 6.2 g/dl (6.4-8.2)
[2018-08-17] MEDS ORDERED: hydrALAZINE HCL 25 MG TABLET (FP) PO ONE (12:29)
--- NOTE | 2018-08-17 13:30 | PN ---
Progress Note, Physician Chief Complaint: patient NPO for procedure History of Present Illness: right hydronephrosis s/p nephrosotmy tube placement anemia s/p prbc - Current Medication List Current Medications: Active Medications Amlodipine Besylate (Norvasc -) 10 mg PO DAILY [facility] Last Admin: 08/17/18 09:34 Dose: 10 mg Hydralazine HCl (Apresoline -) 10 mg PO BID [facility] Last Admin: 08/17/18 06:38 Dose: 10 mg Sodium Chloride (1/2 Normal Saline) 1,000 mls @ 100 mls/hr IV ASDIR [facility] Last Admin: 08/17/18 09:34 Dose: 100 mls/hr Insulin Aspart (Novolog Vial Sliding Scale -) 1 vial SQ ACHS [facility]; Protocol Last Admin: 08/17/18 11:41 Dose: Not Given Metoprolol Succinate (Toprol Xl -) 50 mg PO DAILY [facility] Last Admin: 08/17/18 09:34 Dose: 50 mg Mirtazapine (Remeron -) 45 mg PO HS [facility] Last Admin: 08/16/18 21:23 Dose: 45 mg Pantoprazole Sodium (Protonix -) 40 mg PO DAILY [facility] Last Admin: 08/17/18 09:34 Dose: 40 mg Ranolazine (Ranexa -) 500 mg PO BID [facility] Last Admin: 08/17/18 09:34 Dose: 500 mg - Objective Vital Signs: Vital Signs Temperature 98.4 F 08/17/18 09:00 Pulse Rate 73 08/17/18 11:41 Respiratory Rate 18 08/17/18 09:00 Blood Pressure 177/93 H 08/17/18 11:41 O2 Sat by Pulse Oximetry (%) 97 08/17/18 10:00 Cardiovascular: Yes: Regular Rate and Rhythm, S1, S2 Respiratory: Yes: CTA Bilaterally Gastrointestinal: Yes: Normal Bowel Sounds, Soft Genitourinary: Yes: Other (nephrostomy tube with bloody drainage) Edema: No Labs: CBC, BMP 08/17/18 10:25 08/17/18 10:25 INR, PTT INR 0.94 (0.83-1.09) 08/15/18 06:00 Problem List - Problems (1) HTN (hypertension) Assessment/Plan: norvasc and hydralazine Code(s): I10 - ESSENTIAL (PRIMARY) HYPERTENSION (2) Hydronephrosis Assessment/Plan: urology follow iup today NPO for procedure Code(s): N13.30 - UNSPECIFIED HYDRONEPHROSIS (3) Anemia Assessment/Plan: s/p prbc now h/h improved Code(s): D64.9 - ANEMIA, UNSPECIFIED (4) MELISA (acute kidney injury) Assessment/Plan: ivf monitor renal function Code(s): N17.9 - ACUTE KIDNEY FAILURE, UNSPECIFIED
--- NOTE | 2018-08-17 14:15 | PN ---
Progress Note, Physician History of Present Illness: Pt seen and examined at bedside. She is awake and alert. She denies shortness of breath. She is going for cysto today. - Current Medication List Current Medications: Active Medications Amlodipine Besylate (Norvasc -) 10 mg PO DAILY [facility] Last Admin: 08/17/18 09:34 Dose: 10 mg Hydralazine HCl (Apresoline -) 10 mg PO BID [facility] Last Admin: 08/17/18 06:38 Dose: 10 mg Sodium Chloride (1/2 Normal Saline) 1,000 mls @ 100 mls/hr IV ASDIR [facility] Last Admin: 08/17/18 09:34 Dose: 100 mls/hr Insulin Aspart (Novolog Vial Sliding Scale -) 1 vial SQ ACHS [facility]; Protocol Last Admin: 08/17/18 11:41 Dose: Not Given Metoprolol Succinate (Toprol Xl -) 50 mg PO DAILY [facility] Last Admin: 08/17/18 09:34 Dose: 50 mg Mirtazapine (Remeron -) 45 mg PO HS [facility] Last Admin: 08/16/18 21:23 Dose: 45 mg Pantoprazole Sodium (Protonix -) 40 mg PO DAILY [facility] Last Admin: 08/17/18 09:34 Dose: 40 mg Ranolazine (Ranexa -) 500 mg PO BID [facility] Last Admin: 08/17/18 09:34 Dose: 500 mg - Objective Vital Signs: Vital Signs Temperature 98.4 F 08/17/18 09:00 Pulse Rate 73 08/17/18 13:56 Respiratory Rate 18 08/17/18 09:00 Blood Pressure 151/74 08/17/18 13:56 O2 Sat by Pulse Oximetry (%) 97 08/17/18 10:00 Constitutional: Yes: Calm Eyes: Yes: Conjunctiva Clear HENT: Yes: Atraumatic Neck: Yes: Supple Cardiovascular: Yes: S1, S2 Respiratory: Yes: CTA Bilaterally Gastrointestinal: Yes: Normal Bowel Sounds, Soft Genitourinary: Yes: Other (right nephrostomy, hematuria) Musculoskeletal: Yes: WNL Edema: No Neurological: Yes: Oriented Psychiatric: Yes: Oriented Labs: CBC, BMP 08/17/18 10:25 08/17/18 10:25 INR, PTT INR 0.94 (0.83-1.09) 08/15/18 06:00 Problem List - Problems (1) MELISA (acute kidney injury) Code(s): N17.9 - ACUTE KIDNEY FAILURE, UNSPECIFIED (2) CKD (chronic kidney disease) Code(s): N18.9 - CHRONIC KIDNEY DISEASE, UNSPECIFIED (3) HTN (hypertension) Code(s): I10 - ESSENTIAL (PRIMARY) HYPERTENSION Assessment/Plan Current Medications Generic Name Dose Route Start Last Admin Trade Name Freq PRN Reason Stop Dose Admin Amlodipine Besylate 10 mg 08/15/18 10:00 08/17/18 09:34 Norvasc - PO 10 mg DAILY ASHELY Administration Hydralazine HCl 10 mg 08/17/18 06:30 08/17/18 06:38 Apresoline - PO 10 mg BID ASHELY Administration Sodium Chloride 1,000 mls @ 100 mls/hr 08/16/18 16:45 08/17/18 09:34 1/2 Normal Saline IV 100 mls/hr ASDIR ASHELY Administration Insulin Aspart 1 vial 08/14/18 16:30 08/17/18 11:41 Novolog Vial Sliding Scale - SQ Not Given ACHS ASHELY Protocol Metoprolol Succinate 50 mg 08/15/18 13:45 08/17/18 09:34 Toprol Xl - PO 50 mg DAILY ASHELY Administration Mirtazapine 45 mg 08/14/18 22:00 08/16/18 21:23 Remeron - PO 45 mg HS ASHELY Administration Pantoprazole Sodium 40 mg 08/15/18 10:00 08/17/18 09:34 Protonix - PO 40 mg DAILY ASHELY Administration Ranolazine 500 mg 08/14/18 22:00 08/17/18 09:34 Ranexa - PO 500 mg BID ASHELY Administration Laboratory Tests 08/15/18 08/15/18 06:00 06:00 ALAN M-Thanh Pending KIM Screen Pending c-ANCA Pending Proteinase 3 (PR3) Pending p-ANCA Pending Atypical p-ANCA Pending Myeloperoxidase Ab Pending Double Strand DNA Ab Pending Glomerular Base Memb Ab Pending Hepatitis A Ab Total Pending Hep Bs Antigen Pending Hep Bs Antibody Pending Hep B Core Total Ab Pending HCV Quantitation Pending Impression 1. MELISA 2. CKD 3. DM 4. HTN 5. weight loss 6. gerd 7. right side hydro 8. nephrolithiasis 9. gross hematuria Plan - cont fluids - serologic workup pending - pt going for cysto today - potassium stable - renal function is improving - hold arb - renal diet - avoid nsaids
[2018-08-17] MEDS ORDERED: POLYETHYLENE GLYCOL 3350 119 GM BTL PO SCH (15:00)
[2018-08-17] MEDS ORDERED: oxyCODONE HCL 5 MG TABLET PO PRN ×2 (15:27→18:33)
[2018-08-17] MEDS ORDERED: ONDANSETRON 4 MG/2 ML VIAL IVPUSH PRN ×2 (15:27→18:33)
[2018-08-17] MEDS ORDERED: LACTATED RINGERS SOLUTION 1,000 ML IV SCH ×2 (15:30→18:33)
[2018-08-17] MEDS ORDERED: DEXAMETHASONE SOD PHOSPHATE 4 MG/1 ML VIAL ONE (16:53)
--- NOTE | 2018-08-17 17:44 | OP ---
Operative Note - Note: Operative Date: 08/17/18 Pre-Operative Diagnosis: acute renal failure with right hydronephrosis Operation: cystoscopy/right ureteroscopic laser lithotripsy/right retrograde pyelogram/right ureteral stent placement Findings: 20 mm impacted right ureteral sone in mid ureter Post-Operative Diagnosis: Other (impacted 2 cm right ureteral stone) Surgeon: Herson Garner Anesthesia: General Drains & Tubes with Location: 10/05 right ureteral stent
[2018-08-17] MEDS ORDERED: ONDANSETRON 4 MG/2 ML VIAL ONE (17:56)
[2018-08-17] MEDS: MIRTAZAPINE 15 MG TABLET (FP) PO SCH (21:59)
[2018-08-17] MEDS: hydrALAZINE HCL 10 MG TABLET PO SCH (22:00)
[2018-08-17 22:07] LABS: HBSAG SCREEN Negative (Negative); HEP A AB, IGM Negative (Negative); HEP B CORE AB, TOT Negative (Negative)
[2018-08-18] MEDS: INSULIN SLIDING SCALE (NOVOLOG) 1 VIAL SQ SCH ×2 (07:14→11:06)
[2018-08-18] MEDS: SODIUM CHLORIDE 0.45% 1,000 ML IV SCH (07:16)
--- NOTE | 2018-08-18 08:11 | CONSULT ---
Consult - text type - Consultation Consultation Note: cc: s/p right ureteral stent and s/p nephrostomy tube HPI: Patient is resting comfortably and in no significant discomfort PE vss; afeb mild right CVAT PCNT draining bloody urine imp acute renal failure s/p stent s/p PCNT s/p lithotripsy of ureteral stone plan would maintain nephrostomy tube and stent. stent was difficult to place due to bulk of stone and friability of ureter which do not allow for basketing of stone fragments would allow kidney to recover and stabilize before having Dr. Sun perform an antegrade nephrostogam in 1-2 weeks patient will need to be discharged when stable with nephrostomy tube
[2018-08-18 10:11] LABS: ANTIGLOMERULAR BASEMENT MEN.AB 3 units (0-20)
[2018-08-18] MEDS: hydrALAZINE HCL 10 MG TABLET PO SCH (10:34)
[2018-08-18] MEDS: PANTOPRAZOLE 40 MG TABLET (FP) PO SCH (10:34)
[2018-08-18] MEDS: amLODIPine BESYLATE 10 MG TABLET (FP) PO SCH (10:34)
[2018-08-18] MEDS: RANOLAZINE E.R. 500 MG TABLET (FP) PO SCH ×2 (10:34→21:56)
[2018-08-18] MEDS: POLYETHYLENE GLYCOL 3350 119 GM BTL PO SCH (10:37)
--- NOTE | 2018-08-18 10:39 | PN ---
Progress Note (short form) - Note Progress Note: Anesthesia postop note 73 y/o F s/p GA for cystoscopy/stent POD#1, vss, aaox3, no complaints No anesthesia complications.
[2018-08-18 11:04] LABS: BASO % 0.5 % (0-2.0); HEMATOCRIT 32.6 % (32.4-45.2); HEMOGLOBIN 10.8 GM/dL (10.7-15.3); LYMPH % 9.2 % (8-40); MCH 31.1 pg (25.7-33.7); MCHC 33.2 g/dl (32.0-36.0); MEAN CELL VOLUME 93.6 fl (80-96); MEAN PLT VOLUME 8.9 fl (7.5-11.1); NEUT % 85.3 % (42.8-82.8); PLATELET COUNT 390 K/MM3 (134-434); RBC 3.48 M/mm3 (3.60-5.2); RDW 15.4 % (11.6-15.6); WHITE BLOOD COUNT 9.2 K/mm3 (4.0-10.0)
--- NOTE | 2018-08-18 11:13 | PN ---
Progress Note, Physician Chief Complaint: Hydronephrosis MELISA Anemia Utretral stone History of Present Illness: Operative Date: 08/17/18 Pre-Operative Diagnosis: acute renal failure with right hydronephrosis Operation: cystoscopy/right ureteroscopic laser lithotripsy/right retrograde pyelogram/right ureteral stent placement Findings: 20 mm impacted right ureteral sone in mid ureter Post-Operative Diagnosis: Other (impacted 2 cm right ureteral stone) Surgeon: Herson Garner Appetite normal Cr trending down - Current Medication List Current Medications: Active Medications Amlodipine Besylate (Norvasc -) 10 mg PO DAILY [facility] Last Admin: 08/18/18 10:34 Dose: 10 mg Hydralazine HCl (Apresoline -) 10 mg PO BID [facility] Last Admin: 08/18/18 10:34 Dose: 10 mg Sodium Chloride (1/2 Normal Saline) 1,000 mls @ 100 mls/hr IV ASDIR [facility] Last Admin: 08/18/18 07:16 Dose: 100 mls/hr Insulin Aspart (Novolog Vial Sliding Scale -) 1 vial SQ ACHS [facility]; Protocol Last Admin: 08/18/18 11:06 Dose: Not Given Metoprolol Succinate (Toprol Xl -) 50 mg PO DAILY [facility] Last Admin: 08/18/18 10:34 Dose: 50 mg Mirtazapine (Remeron -) 45 mg PO HS [facility] Last Admin: 08/17/18 21:59 Dose: 45 mg Ondansetron HCl (Zofran Injection) 4 mg IVPUSH Q6H PRN PRN Reason: NAUSEA AND/OR VOMITING Stop: 08/18/18 18:32 Oxycodone HCl (Roxicodone -) 5 mg PO Q4H PRN PRN Reason: PAIN LEVEL 1-5 Stop: 08/18/18 15:26 Pantoprazole Sodium (Protonix -) 40 mg PO DAILY [facility] Last Admin: 08/18/18 10:34 Dose: 40 mg Polyethylene Glycol (Miralax (For Daily Use) -) 17 gm PO DAILY [facility] Last Admin: 08/18/18 10:37 Dose: 17 gm Ranolazine (Ranexa -) 500 mg PO BID [facility] Last Admin: 08/18/18 10:34 Dose: 500 mg - Objective Vital Signs: Vital Signs Temperature 98.4 F 08/18/18 09:00 Pulse Rate 74 05/07/19 09:00 Respiratory Rate 18 08/18/18 09:00 Blood Pressure 169/86 08/18/18 09:00 O2 Sat by Pulse Oximetry (%) 99 08/17/18 21:00 Constitutional: Yes: No Distress, Calm, Cachectic Cardiovascular: Yes: Regular Rate and Rhythm Respiratory: Yes: Regular Gastrointestinal: Yes: Normal Bowel Sounds, Soft Genitourinary: Yes: Other (right nephrostomy) Musculoskeletal: Yes: Muscle Weakness Extremities: Yes: WNL Edema: No Peripheral Pulses WNL: Yes Neurological: Yes: Alert, Oriented Psychiatric: Yes: Alert, Oriented Labs: INR, PTT INR 0.94 (0.83-1.09) 08/15/18 06:00 Problem List - Problems (1) Ureteral stone with hydronephrosis Assessment/Plan: -Seen by Urology -S/P right nephrostomy- draining minimally -will go home with nephrostomy tube Code(s): N13.2 - HYDRONEPHROSIS WITH RENAL AND URETERAL CALCULOUS OBSTRUCTION (2) MELISA (acute kidney injury) Assessment/Plan: -2/2 to hydronephrosis -Continue IVF -Cr trending down -monitor daily trend Code(s): N17.9 - ACUTE KIDNEY FAILURE, UNSPECIFIED (3) HTN (hypertension) Assessment/Plan: -Increase hydralazine to 25 mg po BID -Increase toprol to 75 mg po daily Code(s): I10 - ESSENTIAL (PRIMARY) HYPERTENSION (4) Diabetes mellitus Assessment/Plan: -A1c at 4.7 -D/C BGM AC HS -Renal diet -D/C Novolog sliding scale Code(s): E11.9 - TYPE 2 DIABETES MELLITUS WITHOUT COMPLICATIONS (5) Anemia Assessment/Plan: -2/2 to blood loss? -Check iron studies, B12 -Check Stool OB -Monitor trend Code(s): D64.9 - ANEMIA, UNSPECIFIED Assessment/Plan see problem list walked well with Physical therapy Possible d/c home in AM with close follow up outpatient
[2018-08-18] MEDS ORDERED: metoPROLOL SUCCINATE 25 MG TAB.SR.24H (FP) PO SCH (11:18)
--- NOTE | 2018-08-18 11:21 | OP ---
DATE OF OPERATION: 08/17/2018 PREOPERATIVE DIAGNOSIS: Acute renal failure with right hydronephrosis status post nephrostomy tube placement. POSTOPERATIVE DIAGNOSIS: Acute renal failure with right hydronephrosis status post nephrostomy tube placement. PROCEDURE: Cystoscopy, right retrograde pyelogram, right ureteroscopic laser lithotripsy, attempted right ureteral stone basketing, and stent placement. ATTENDING SURGEON: Joel Garner MD ANESTHESIA: General. OPERATION: As follows, the patient under anesthesia, cystoscopy was performed. The bladder was inspected and noted to be without evidence of stones or neoplasm. A retrograde pyelogram showed a 20-mm obstructing mid-ureteral stone. A wire was then passed proximally utilizing fluoroscopy. At this point, a rigid ureteroscope was utilized, and the stone was fragmented. Attempts at grasping a stone fragment were unsuccessful as the stone fragment became difficult to remove. It was at this point that the wire of the stone basket was cut and ureteroscopy was performed, and the stone within the basket was fragmented and the basket removed. At this point, it was decided to leave the nephrostomy tube in place and pass the stent over the wire. The wire was placed without complications. Patient tolerated the procedure very well. JOEL ALMAZAN M.D. [id number]
[2018-08-18 11:33] LABS: ALBUMIN 2.5 g/dl (3.4-5.0); ALK PHOS 85 U/L (45-117); ANION GAP 9 MMOL/L (8-16); BILIRUBIN,TOTAL 0.3 mg/dL (0.2-1); BLOOD UREA NITROGEN 65 mg/dL (7-18); CHLORIDE 107 mmol/L (98-107); CO2 19 mmol/L (21-32); CREATININE 5.8 mg/dL (0.55-1.3); GLUCOSE,RANDOM 155 mg/dL (74-106); POTASSIUM 5.5 mmol/L (3.5-5.1); SGOT/AST 20 U/L (15-37); SGPT/ALT 15 U/L (13-61); SODIUM 135 mmol/L (136-145)
[2018-08-18] MEDS ORDERED: SODIUM CHLORIDE 0.45% 1,000 ML with SODIUM BICARBONATE 8.4% - 50 MEQ IV SCH (15:45)
[2018-08-18] MEDS ORDERED: SODIUM BICARBONATE 8.4% - 50 MEQ in SODIUM CHLORIDE 0.45% 1,000 ML IV SCH (15:46)
--- NOTE | 2018-08-18 16:32 | PN ---
Progress Note, Physician History of Present Illness: Pt seen and examined at bedside. She is awake and alert. He denies shortness of breath. - Current Medication List Current Medications: Active Medications Amlodipine Besylate (Norvasc -) 10 mg PO DAILY [facility] Last Admin: 08/18/18 10:34 Dose: 10 mg Hydralazine HCl (Apresoline -) 25 mg PO BID [facility] Sodium Bicarbonate 50 meq/ (Sodium Chloride) 1,050 mls @ 100 mls/hr IV Q10H [facility] Metoprolol Succinate (Toprol Xl -) 75 mg PO DAILY [facility] Mirtazapine (Remeron -) 45 mg PO HS [facility] Last Admin: 08/17/18 21:59 Dose: 45 mg Ondansetron HCl (Zofran Injection) 4 mg IVPUSH Q6H PRN PRN Reason: NAUSEA AND/OR VOMITING Stop: 08/18/18 18:32 Pantoprazole Sodium (Protonix -) 40 mg PO DAILY [facility] Last Admin: 08/18/18 10:34 Dose: 40 mg Polyethylene Glycol (Miralax (For Daily Use) -) 17 gm PO DAILY [facility] Last Admin: 08/18/18 10:37 Dose: 17 gm Ranolazine (Ranexa -) 500 mg PO BID [facility] Last Admin: 08/18/18 10:34 Dose: 500 mg - Objective Vital Signs: Vital Signs Temperature 98.6 F 08/18/18 14:29 Pulse Rate 73 08/18/18 13:56 Respiratory Rate 16 08/18/18 13:56 Blood Pressure 142/74 08/18/18 13:56 O2 Sat by Pulse Oximetry (%) 97 08/18/18 09:00 Constitutional: Yes: Calm Eyes: Yes: Conjunctiva Clear HENT: Yes: Atraumatic Neck: Yes: Supple Cardiovascular: Yes: S1, S2 Respiratory: Yes: CTA Bilaterally Gastrointestinal: Yes: Soft Genitourinary: Yes: Hematuria Musculoskeletal: Yes: WNL Edema: LLE: Trace, RLE: Trace Neurological: Yes: Oriented Psychiatric: Yes: Oriented Labs: CBC, BMP 08/18/18 10:25 08/18/18 10:25 INR, PTT INR 0.94 (0.83-1.09) 08/15/18 06:00 Problem List - Problems (1) MELISA (acute kidney injury) Code(s): N17.9 - ACUTE KIDNEY FAILURE, UNSPECIFIED (2) CKD (chronic kidney disease) Code(s): N18.9 - CHRONIC KIDNEY DISEASE, UNSPECIFIED (3) HTN (hypertension) Code(s): I10 - ESSENTIAL (PRIMARY) HYPERTENSION Assessment/Plan Current Medications Generic Name Dose Route Start Last Admin Trade Name Freq PRN Reason Stop Dose Admin Amlodipine Besylate 10 mg 08/18/18 10:00 08/18/18 10:34 Norvasc - PO 10 mg DAILY ASHELY Administration Hydralazine HCl 25 mg 08/18/18 11:18 Apresoline - PO BID ASHELY Sodium Bicarbonate 50 meq/ 1,050 mls @ 100 mls/hr 08/18/18 15:46 Sodium Chloride IV Q10H ASHELY Metoprolol Succinate 75 mg 08/18/18 11:18 Toprol Xl - PO DAILY ASHELY Mirtazapine 45 mg 08/17/18 22:00 08/17/18 21:59 Remeron - PO 45 mg HS ASHELY Administration Ondansetron HCl 4 mg 08/17/18 18:33 Zofran Injection IVPUSH 08/18/18 18:32 Q6H PRN NAUSEA AND/OR VOMITING Pantoprazole Sodium 40 mg 08/18/18 10:00 08/18/18 10:34 Protonix - PO 40 mg DAILY ASHELY Administration Polyethylene Glycol 17 gm 08/18/18 10:00 08/18/18 10:37 Miralax (For Daily Use) - PO 17 gm DAILY ASHELY Administration Ranolazine 500 mg 08/17/18 22:00 08/18/18 10:34 Ranexa - PO 500 mg BID ASHELY Administration Laboratory Tests 08/14/18 08/15/18 19:20 06:00 Urine Protein 3+ H Urine Blood Negative KIM Screen Positive H c-ANCA Pending Proteinase 3 (PR3) Pending p-ANCA Pending Atypical p-ANCA Pending Myeloperoxidase Ab Pending Double Strand DNA Ab <1 Glomerular Base Memb Ab 3 Hep Bs Antigen Negative Hep Bs Antibody Reactive Hep B Core Total Ab Negative Impression 1. MELISA 2. CKD 3. DM 4. HTN 5. weight loss 6. gerd 7. right side hydro 8. nephrolithiasis 9. gross hematuria Plan - cont to monitor renal function - add bicarb to fluids - low potassium diet - follow serologies - spoke to pmd, budget engineer went from 1 to 3 to 6 over the last six months - hold arb - renal diet - avoid nsaids
[2018-08-18] MEDS: SODIUM BICARBONATE 8.4% - 50 MEQ in SODIUM CHLORIDE 0.45% 1,000 ML IV SCH (17:28)
[2018-08-18 18:21] LABS: ANION GAP 10 MMOL/L (8-16); BLOOD UREA NITROGEN 68 mg/dL (7-18); CALCIUM 8.5 mg/dL (8.5-10.1); CHLORIDE 107 mmol/L (98-107); CO2 18 mmol/L (21-32); CREATININE 5.5 mg/dL (0.55-1.3); GLUCOSE,RANDOM 100 mg/dL (74-106); POTASSIUM 5.1 mmol/L (3.5-5.1); SODIUM 135 mmol/L (136-145)
[2018-08-18] MEDS: hydrALAZINE HCL 25 MG TABLET (FP) PO SCH (21:55)
[2018-08-18] MEDS: MIRTAZAPINE 15 MG TABLET (FP) PO SCH (21:57)
[2018-08-19] MEDS: SODIUM BICARBONATE 8.4% - 50 MEQ in SODIUM CHLORIDE 0.45% 1,000 ML IV SCH ×2 (02:13→18:07)
[2018-08-19 04:10] LABS: SERUM IRON SATURATION 36 % (15-55); TOTAL IRON BINDING CAPACITY 229 ug/dL (250-450); UIBC 146 ug/dL (118-369)
[2018-08-19 07:34] LABS: ALBUMIN 2.5 g/dl (3.4-5.0); ALK PHOS 83 U/L (45-117); ANION GAP 9 MMOL/L (8-16); BILIRUBIN,TOTAL 0.4 mg/dL (0.2-1); BLOOD UREA NITROGEN 65 mg/dL (7-18); CALCIUM 8.3 mg/dL (8.5-10.1); CHLORIDE 107 mmol/L (98-107); CO2 18 mmol/L (21-32); CREATININE 5.3 mg/dL (0.55-1.3); GLUCOSE,RANDOM 95 mg/dL (74-106); SGOT/AST 23 U/L (15-37); SGPT/ALT 16 U/L (13-61); SODIUM 134 mmol/L (136-145)
[2018-08-19 07:38] LABS: BASO % 0.4 % (0-2.0); EOS % 0.7 % (0-4.5); HEMATOCRIT 30.9 % (32.4-45.2); HEMOGLOBIN 10.3 GM/dL (10.7-15.3); LYMPH % 12.8 % (8-40); MCH 31.7 pg (25.7-33.7); MCHC 33.4 g/dl (32.0-36.0); MEAN CELL VOLUME 94.8 fl (80-96); MEAN PLT VOLUME 8.9 fl (7.5-11.1); MONO % 5.4 % (3.8-10.2); NEUT % 80.7 % (42.8-82.8); PLATELET COUNT 374 K/MM3 (134-434); RBC 3.25 M/mm3 (3.60-5.2); RDW 14.8 % (11.6-15.6); WHITE BLOOD COUNT 9.6 K/mm3 (4.0-10.0)
[2018-08-19] MEDS: PANTOPRAZOLE 40 MG TABLET (FP) PO SCH (10:11)
[2018-08-19] MEDS: hydrALAZINE HCL 25 MG TABLET (FP) PO SCH ×3 (10:11→21:25)
[2018-08-19] MEDS: amLODIPine BESYLATE 10 MG TABLET (FP) PO SCH (10:11)
[2018-08-19] MEDS: POLYETHYLENE GLYCOL 3350 119 GM BTL PO SCH (10:11)
[2018-08-19] MEDS: RANOLAZINE E.R. 500 MG TABLET (FP) PO SCH ×2 (10:11→21:25)
--- NOTE | 2018-08-19 11:50 | PN ---
Progress Note, Physician Chief Complaint: Hydronephrosis MELISA Anemia Utretral stone History of Present Illness: Operative Date: 08/17/18 Pre-Operative Diagnosis: acute renal failure with right hydronephrosis Operation: cystoscopy/right ureteroscopic laser lithotripsy/right retrograde pyelogram/right ureteral stent placement Findings: 20 mm impacted right ureteral sone in mid ureter Post-Operative Diagnosis: Other (impacted 2 cm right ureteral stone) Surgeon: Herson Garner NAD Appetite normal Cr trending down K+ improved Bicarb same - Current Medication List Current Medications: Active Medications Amlodipine Besylate (Norvasc -) 10 mg PO DAILY [facility] Last Admin: 08/19/18 10:11 Dose: 10 mg Hydralazine HCl (Apresoline -) 25 mg PO BID [facility] Last Admin: 08/19/18 10:11 Dose: 25 mg Sodium Bicarbonate 50 meq/ (Sodium Chloride) 1,050 mls @ 110 mls/hr IV Q10H [facility]PL[facility] Last Admin: 08/19/18 02:13 Dose: 110 mls/hr Metoprolol Succinate (Toprol Xl -) 75 mg PO DAILY [facility] Last Admin: 08/19/18 10:11 Dose: 75 mg Mirtazapine (Remeron -) 45 mg PO HS [facility] Last Admin: 08/18/18 21:57 Dose: 45 mg Pantoprazole Sodium (Protonix -) 40 mg PO DAILY [facility] Last Admin: 08/19/18 10:11 Dose: 40 mg Polyethylene Glycol (Miralax (For Daily Use) -) 17 gm PO DAILY [facility] Last Admin: 08/19/18 10:11 Dose: 17 gm Ranolazine (Ranexa -) 500 mg PO BID [facility] Last Admin: 08/19/18 10:11 Dose: 500 mg - Objective Vital Signs: Vital Signs Temperature 98 F 08/19/18 10:00 Pulse Rate 85 08/19/18 10:00 Respiratory Rate 18 08/19/18 10:00 Blood Pressure 150/75 08/19/18 10:00 O2 Sat by Pulse Oximetry (%) 96 08/18/18 21:00 Constitutional: Yes: No Distress, Calm, Cachectic Cardiovascular: Yes: Regular Rate and Rhythm Respiratory: Yes: Regular Gastrointestinal: Yes: Normal Bowel Sounds, Soft Musculoskeletal: Yes: WNL Extremities: Yes: WNL Edema: No Peripheral Pulses WNL: Yes Neurological: Yes: Alert, Oriented Psychiatric: Yes: Alert, Oriented Labs: CBC, BMP 08/19/18 06:00 08/19/18 06:00 INR, PTT INR 0.94 (0.83-1.09) 08/15/18 06:00 Problem List - Problems (1) Ureteral stone with hydronephrosis Assessment/Plan: -Seen by Urology -S/P right nephrostomy- draining minimally -will go home with nephrostomy tube Code(s): N13.2 - HYDRONEPHROSIS WITH RENAL AND URETERAL CALCULOUS OBSTRUCTION (2) MEILSA (acute kidney injury) Assessment/Plan: -2/2 to hydronephrosis -Continue IVF -Cr trending down -monitor daily trend Code(s): N17.9 - ACUTE KIDNEY FAILURE, UNSPECIFIED (3) HTN (hypertension) Assessment/Plan: -Increase hydralazine to 25 mg po TID -Increase toprol to 100 mg po daily Code(s): I10 - ESSENTIAL (PRIMARY) HYPERTENSION (4) Anemia Assessment/Plan: -2/2 to blood loss? -H/H stable -iron studies, B12 normal -Stool OB negative -Monitor trend Code(s): D64.9 - ANEMIA, UNSPECIFIED (5) Hyperkalemia Assessment/Plan: -improved -monitor trend -low K+ renal diet Code(s): E87.5 - HYPERKALEMIA Assessment/Plan See problem list walked well with PT
[2018-08-19] MEDS ORDERED: metoPROLOL SUCCINATE 25 MG TAB.SR.24H (FP) PO ONE (12:15)
--- NOTE | 2018-08-19 12:58 | PN ---
Progress Note, Physician History of Present Illness: Pt seen and examined at bedside. She is awake and alert. She denies shortness of breath. - Current Medication List Current Medications: Active Medications Amlodipine Besylate (Norvasc -) 10 mg PO DAILY [facility] Last Admin: 08/19/18 10:11 Dose: 10 mg Hydralazine HCl (Apresoline -) 25 mg PO TID [facility] Sodium Bicarbonate 75 meq/ (Sodium Chloride) 1,050 mls @ 110 mls/hr IV Q10H [facility] Metoprolol Succinate (Toprol Xl -) 100 mg PO DAILY [facility] Mirtazapine (Remeron -) 45 mg PO HS [facility] Last Admin: 08/18/18 21:57 Dose: 45 mg Pantoprazole Sodium (Protonix -) 40 mg PO DAILY [facility] Last Admin: 08/19/18 10:11 Dose: 40 mg Polyethylene Glycol (Miralax (For Daily Use) -) 17 gm PO DAILY [facility] Last Admin: 08/19/18 10:11 Dose: 17 gm Ranolazine (Ranexa -) 500 mg PO BID [facility] Last Admin: 08/19/18 10:11 Dose: 500 mg - Objective Vital Signs: Vital Signs Temperature 98 F 08/19/18 10:00 Pulse Rate 79 08/19/18 12:49 Respiratory Rate 20 08/19/18 12:49 Blood Pressure 161/94 08/19/18 12:49 O2 Sat by Pulse Oximetry (%) 96 08/18/18 21:00 Constitutional: Yes: Calm Eyes: Yes: Conjunctiva Clear HENT: Yes: Atraumatic Neck: Yes: Supple Cardiovascular: Yes: S1, S2 Respiratory: Yes: CTA Bilaterally Gastrointestinal: Yes: Soft Genitourinary: Yes: Other (right nephrostomy) Musculoskeletal: Yes: WNL Edema: No Wound/Incision: Yes: Well Approximated Neurological: Yes: Oriented Psychiatric: Yes: Oriented Labs: CBC, BMP 08/19/18 06:00 08/19/18 06:00 INR, PTT INR 0.94 (0.83-1.09) 08/15/18 06:00 Problem List - Problems (1) MELISA (acute kidney injury) Code(s): N17.9 - ACUTE KIDNEY FAILURE, UNSPECIFIED (2) CKD (chronic kidney disease) Code(s): N18.9 - CHRONIC KIDNEY DISEASE, UNSPECIFIED (3) HTN (hypertension) Code(s): I10 - ESSENTIAL (PRIMARY) HYPERTENSION Assessment/Plan Current Medications Generic Name Dose Route Start Last Admin Trade Name Marlyn PRN Reason Stop Dose Admin Amlodipine Besylate 10 mg 08/18/18 10:00 08/19/18 10:11 Norvasc - PO 10 mg DAILY ASHELY Administration Hydralazine HCl 25 mg 08/19/18 14:00 Apresoline - PO TID ASHELY Sodium Bicarbonate 75 meq/ 1,050 mls @ 110 mls/hr 08/19/18 13:00 Sodium Chloride IV Q10H ASHELY Metoprolol Succinate 100 mg 08/20/18 10:00 Toprol Xl - PO DAILY ASHELY Mirtazapine 45 mg 08/17/18 22:00 08/18/18 21:57 Remeron - PO 45 mg HS ASHELY Administration Pantoprazole Sodium 40 mg 08/18/18 10:00 08/19/18 10:11 Protonix - PO 40 mg DAILY ASHELY Administration Polyethylene Glycol 17 gm 08/18/18 10:00 08/19/18 10:11 Miralax (For Daily Use) - PO 17 gm DAILY ASHELY Administration Ranolazine 500 mg 08/17/18 22:00 08/19/18 10:11 Ranexa - PO 500 mg BID ASHELY Administration Impression 1. MELISA 2. CKD 3. DM 4. HTN 5. weight loss 6. gerd 7. right side hydro 8. nephrolithiasis 9. gross hematuria Plan - renal function is improving - called and discussed care with daughter Davey - low potassium diet - follow serologies - hold arb - renal diet - avoid nsaids
[2018-08-19 14:11] LABS: ATYPICAL pANCA <1:20 titer (Neg:<1:20); C-ANCA <1:20 titer (Neg:<1:20); P-ANCA <1:20 titer (Neg:<1:20)
[2018-08-19 15:36] VITALS: BMI 18.4
[2018-08-19] MEDS ORDERED: PT OWN MED DRAWER 7, Y5N ONE (17:55)
[2018-08-19] MEDS: SODIUM CHLORIDE 0.45% IV SCH (18:01)
[2018-08-19] MEDS: SODIUM BICARBONATE IV SCH (18:01)
[2018-08-19] MEDS: MIRTAZAPINE 15 MG TABLET (FP) PO SCH (21:25)
[2018-08-20] MEDS: SODIUM BICARBONATE IV SCH ×2 (00:56→03:30)
[2018-08-20] MEDS: SODIUM CHLORIDE 0.45% IV SCH ×2 (00:56→03:30)
[2018-08-20] MEDS: hydrALAZINE HCL 25 MG TABLET (FP) PO SCH ×2 (06:06→14:50)
[2018-08-20 07:36] LABS: BASO % 0.8 % (0-2.0); EOS % 2.7 % (0-4.5); HEMATOCRIT 30.3 % (32.4-45.2); HEMOGLOBIN 10.3 GM/dL (10.7-15.3); MCH 31.3 pg (25.7-33.7); MCHC 33.9 g/dl (32.0-36.0); MEAN CELL VOLUME 92.2 fl (80-96); MEAN PLT VOLUME 8.9 fl (7.5-11.1); MONO % 7.2 % (3.8-10.2); NEUT % 74.3 % (42.8-82.8); PLATELET COUNT 378 K/MM3 (134-434); RBC 3.28 M/mm3 (3.60-5.2); RDW 14.6 % (11.6-15.6)
[2018-08-20 07:52] LABS: ALBUMIN 2.2 g/dl (3.4-5.0); BILIRUBIN,TOTAL 0.4 mg/dL (0.2-1); CREATININE 4.8 mg/dL (0.55-1.3); POTASSIUM 4.5 mmol/L (3.5-5.1); TOT PROT 5.6 g/dl (6.4-8.2)
[2018-08-20] MEDS ORDERED: SODIUM CHLORIDE 0.45% 1,000 ML IV SCH (08:30)
[2018-08-20 09:02] LABS: PHOSPHOROUS 3.9 mg/dL (2.5-4.9)
[2018-08-20] MEDS: RANOLAZINE E.R. 500 MG TABLET (FP) PO SCH (09:44)
[2018-08-20] MEDS: PANTOPRAZOLE 40 MG TABLET (FP) PO SCH (09:44)
[2018-08-20] MEDS: POLYETHYLENE GLYCOL 3350 119 GM BTL PO SCH (09:44)
[2018-08-20] MEDS: amLODIPine BESYLATE 10 MG TABLET (FP) PO SCH (09:44)
--- NOTE | 2018-08-20 14:56 | DS ---
Physical Examination Vital Signs: Vital Signs Temperature 98.3 F 08/20/18 09:51 Pulse Rate 77 08/20/18 09:51 Respiratory Rate 18 08/20/18 09:51 Blood Pressure 158/80 08/20/18 09:51 O2 Sat by Pulse Oximetry (%) 98 08/20/18 09:00 Constitutional: Yes: Calm, Thin Cardiovascular: Yes: Regular Rate and Rhythm, S1, S2 Respiratory: Yes: CTA Bilaterally Gastrointestinal: Yes: Normal Bowel Sounds, Soft Renal/: Yes: Other (right nephrostomy tube draining dark red) Edema: No Neurological: Yes: Alert, Oriented Labs: CBC, BMP 08/20/18 06:10 08/20/18 06:10 Discharge Summary Reason For Visit: ACUTE KIDNEY INJ SUPERIMPOSED ON CHRONIC KIDNEY Current Active Problems MELISA (acute kidney injury) (Acute) Anemia (Acute) CKD (chronic kidney disease) (Acute) HTN (hypertension) (Acute) Hydronephrosis (Acute) Hyperkalemia (Acute) Hyperlipidemia (Acute) Ureteral stone with hydronephrosis (Acute) Other Procedures: right ureteral calculus with marked hydronephrosis Hospital Course: Primary Care Physician PCP: Matthew Dye - Admission Chief Complaint: elevated BUN/Cr History of Present Illness: Patient is a 73 y/o female with past medical history of DM, HTN, and CKD. Patient was sent from PMD office for worsening renal failure with elevated BUN/ Cr 70/7.3. Patient has been non-compliant with following up with nephrology. In ER labs show BUN/Cr 70/7.5. admitted seen by urology nephrosotmy tube palced anemia got PRBC seen by renal and urology and cardiology HT medications increase hydralazine and toprol - Instructions Disposition: HOME - Home Medications Comprehensive Discharge Medication List: Ambulatory Orders Amlodipine Bes/Olmesartan Med [Godfrey 10-40 mg Tablet] 1 each PO DAILY 08/14/18 Aspirin [ASA -] 81 mg PO DAILY 08/14/18 Linagliptin [Tradjenta] 5 mg PO DAILY 08/14/18 Mirtazapine 45 mg PO HS 08/14/18 Omeprazole 40 mg PO DAILY 08/14/18 Ranolazine [Ranolazine ER] 500 mg PO BID 08/14/18 Simvastatin 20 mg PO DAILY 08/14/18
--- NOTE | 2018-08-20 14:56 | PN ---
Progress Note, Physician History of Present Illness: Pt seen and examined at bedside. She is awake and alert. She denies shortness of breath. She is making urine. She still has the right nephrostomy. - Current Medication List Current Medications: Active Medications Amlodipine Besylate (Norvasc -) 10 mg PO DAILY [facility] Last Admin: 08/20/18 09:44 Dose: 10 mg Hydralazine HCl (Apresoline -) 25 mg PO TID [facility] Last Admin: 08/20/18 06:06 Dose: 25 mg Sodium Chloride (1/2 Normal Saline) 1,000 mls @ 83 mls/hr IV ASDIR [facility] Last Admin: 08/20/18 09:45 Dose: 83 mls/hr Metoprolol Succinate (Toprol Xl -) 100 mg PO DAILY [facility] Last Admin: 08/20/18 09:44 Dose: 100 mg Mirtazapine (Remeron -) 45 mg PO HS [facility] Last Admin: 08/19/18 21:25 Dose: 45 mg Pantoprazole Sodium (Protonix -) 40 mg PO DAILY [facility] Last Admin: 08/20/18 09:44 Dose: 40 mg Polyethylene Glycol (Miralax (For Daily Use) -) 17 gm PO DAILY [facility] Last Admin: 08/20/18 09:44 Dose: Not Given Ranolazine (Ranexa -) 500 mg PO BID [facility] Last Admin: 08/20/18 09:44 Dose: 500 mg - Objective Vital Signs: Vital Signs Temperature 98.3 F 08/20/18 09:51 Pulse Rate 77 08/20/18 09:51 Respiratory Rate 18 08/20/18 09:51 Blood Pressure 158/80 08/20/18 09:51 O2 Sat by Pulse Oximetry (%) 98 08/20/18 09:00 Constitutional: Yes: Calm Eyes: Yes: Conjunctiva Clear HENT: Yes: Atraumatic Cardiovascular: Yes: S1, S2 Respiratory: Yes: CTA Bilaterally Gastrointestinal: Yes: Normal Bowel Sounds, Soft Genitourinary: Yes: Other (right nephrostomy) Musculoskeletal: Yes: WNL Edema: No Neurological: Yes: Oriented Psychiatric: Yes: Oriented Labs: CBC, BMP 08/20/18 06:10 08/20/18 06:10 INR, PTT INR 0.94 (0.83-1.09) 08/15/18 06:00 Problem List - Problems (1) MELISA (acute kidney injury) Code(s): N17.9 - ACUTE KIDNEY FAILURE, UNSPECIFIED (2) CKD (chronic kidney disease) Code(s): N18.9 - CHRONIC KIDNEY DISEASE, UNSPECIFIED (3) HTN (hypertension) Code(s): I10 - ESSENTIAL (PRIMARY) HYPERTENSION Assessment/Plan Current Medications Generic Name Dose Route Start Last Admin Trade Name Freq PRN Reason Stop Dose Admin Amlodipine Besylate 10 mg 08/18/18 10:00 08/20/18 09:44 Norvasc - PO 10 mg DAILY ASHELY Administration Hydralazine HCl 25 mg 08/19/18 14:00 08/20/18 14:50 Apresoline - PO 25 mg TID ASHELY Administration Sodium Chloride 1,000 mls @ 83 mls/hr 08/20/18 08:30 08/20/18 09:45 1/2 Normal Saline IV 83 mls/hr ASDIR ASHELY Administration Metoprolol Succinate 100 mg 08/20/18 10:00 08/20/18 09:44 Toprol Xl - PO 100 mg DAILY ASHELY Administration Mirtazapine 45 mg 08/17/18 22:00 08/19/18 21:25 Remeron - PO 45 mg HS ASHELY Administration Pantoprazole Sodium 40 mg 08/18/18 10:00 08/20/18 09:44 Protonix - PO 40 mg DAILY ASHELY Administration Polyethylene Glycol 17 gm 08/18/18 10:00 08/20/18 09:44 Miralax (For Daily Use) - PO Not Given DAILY ASHELY Ranolazine 500 mg 08/17/18 22:00 08/20/18 09:44 Ranexa - PO 500 mg BID ASHELY Administration Laboratory Tests 08/15/18 08/15/18 08/20/18 06:00 06:00 06:10 Hgb Sodium 138 Potassium 4.5 BUN 58 H Creatinine 4.8 H ALAN M-Thanh Not observed KIM Screen Positive H c-ANCA <1:20 Proteinase 3 (PR3) <3.5 p-ANCA <1:20 Atypical p-ANCA <1:20 Myeloperoxidase Ab <9.0 Double Strand DNA Ab <1 Glomerular Base Memb Ab 3 Hep Bs Antigen Negative Hep Bs Antibody Reactive Hep B Core Total Ab Negative 08/20/18 06:10 Hgb 10.3 L Sodium Potassium BUN Creatinine ALAN M-Thanh KIM Screen c-ANCA Proteinase 3 (PR3) p-ANCA Atypical p-ANCA Myeloperoxidase Ab Double Strand DNA Ab Glomerular Base Memb Ab Hep Bs Antigen Hep Bs Antibody Hep B Core Total Ab Laboratory Tests 08/20/18 06:10 Phosphorus 3.9 Impression 1. MELISA 2. CKD 3. DM 4. HTN 5. weight loss 6. gerd 7. right side hydro 8. nephrolithiasis 9. gross hematuria Plan - renal function continues to improve - urology follow up for nephrostomy plan - can see pt in office next week on Friday - do not restart arb or diuretic - can increase hydralazine to 50 mg - avoid nsaids
[2018-08-20] MEDS ORDERED: hydrALAZINE HCL 25 MG TABLET (FP) PO SCH (14:58)
[2018-08-20 15:29] VITALS: BP 153/73; PULSE 81; TEMP 98.9
== END 2018-08-20 18:04 | disposition home or self-care (01) | DRG 659 ==
LOC: JER 11:47 → JERBED 14:13 → J5S 15:55
PROVIDERS: ADMIT Family Medicine; ATTEND Family Medicine
PROC: 0T9330Z Drainage of Right Kidney Pelvis with Drainage Device, Percutaneous Approach (ICD-10-PCS; principal; 2018-08-15)
PROC: 30233R1 Transfusion of Nonautologous Platelets into Peripheral Vein, Percutaneous Approach (ICD-10-PCS; 2018-08-15)
PROC: BT04ZZZ Plain Radiography of Kidneys, Ureters and Bladder (ICD-10-PCS; 2018-08-15)
PROC: 30233N1 Transfusion of Nonautologous Red Blood Cells into Peripheral Vein, Percutaneous Approach (ICD-10-PCS; 2018-08-16)
PROC: 0T768DZ Dilation of Right Ureter with Intraluminal Device, Via Natural or Artificial Opening Endoscopic (ICD-10-PCS; 2018-08-17 13:00)
PROC: 0TC68ZZ Extirpation of Matter from Right Ureter, Via Natural or Artificial Opening Endoscopic (ICD-10-PCS; 2018-08-17 13:00)
PROC: BT1DZZZ Fluoroscopy of Right Kidney, Ureter and Bladder (ICD-10-PCS; 2018-08-17 13:00)
DX: N17.9 Acute kidney failure, unspecified (principal); E43 Unspecified severe protein-calorie malnutrition; Z68.1 Body mass index [BMI] 19.9 or less, adult; E78.5 Hyperlipidemia, unspecified; N13.2 Hydronephrosis with renal and ureteral calculous obstruction; K21.9 Gastro-esophageal reflux disease without esophagitis; I12.9 Hypertensive chronic kidney disease with stage 1 through stage 4 chronic kidney disease, or unspecified chronic kidney disease; E11.22 Type 2 diabetes mellitus with diabetic chronic kidney disease; N18.9 Chronic kidney disease, unspecified; I45.81 Long QT syndrome; N13.30 Unspecified hydronephrosis; R31.0 Gross hematuria; D64.9 Anemia, unspecified; E87.5 Hyperkalemia
CPT/HCPCS: 36415; 36430; 36511; 50432; 71046-TC-FY; 74176-TC; 76000-TC-FY; 76098-TC-FY; 76775-TC; 76937-TC; 80048; 80053; 81003; 82272; 82436; 82550; 82565; 82607; 82728; 82962; 83036; 83516; 83520; 83540; 83550; 83735; 84100; 84133; 84155; 84165; 84300; 84436; 84443; 84484; 85025; 85610; 85730; 86038; 86225; 86256; 86704; 86706; 86708; 86850; 86900; 86901; 86922; 87070; 87075; 87086; 87186; 87205; 87340; 87522; 87899; 93005; 93010; 94760; 97116-GP; 97162-GP; 99282-25; A4358; C1729; C1769; P9034; P9038; P9058

== ENCOUNTER 2018-09-05 04:20 | Inpatient (IN) | payer MEDICARE, OTHER | END 2018-09-10 19:29 | disposition home or self-care (01) | LOC: J5S 09-08 15:44 → JER 04:20 → JICU 06:11 ==

== ENCOUNTER 2018-10-26 10:18 | Day surgery (SDC) | payer MEDICARE, OTHER ==
[2018-10-23 17:07] VITALS: BMI 17.2
[2018-10-26] MEDS ORDERED: LIDOCAINE HCL 1%, 10 MG/ML (20ML VIAL) ONE (10:26)
[2018-10-26] MEDS ORDERED: PAPAVERINE HCL 30 MG/1 ML 10 ML VIAL NR ONE (10:26)
[2018-10-26] MEDS ORDERED: HEPARIN NA (PORCINE) 5,000 UNITS/ML 1ML VIAL ONE (10:26)
[2018-10-26] MEDS ORDERED: POVIDONE-IODINE OINTMENT 10% - 28.4 GM TUBE ONE (10:30)
[2018-10-26] MEDS ORDERED: PROPOFOL 20 ML ONE (11:15)
[2018-10-26] MEDS ORDERED: MIDAZOLAM HCL 2 MG/2 ML SINGLE DOSE VIAL ONE ×2 (11:15→11:48)
[2018-10-26] MEDS ORDERED: SUCCINYLCHOLINE CHLORIDE 200 MG/10 ML SYRINGE ONE (11:15)
--- NOTE | 2018-10-26 11:17 | HP ---
Satellite [facility] - Chief Complaint History of Present Illness: 73 year old woman with CKD stage 5 needs access for dialysis. She is right handed. History Source: Patient Limitations to Obtaining History: No Limitations - Past Medical History Allergies/Adverse Reactions: Allergies Allergy/AdvReac Type Severity Reaction Status Date / Time No Known Allergies Allergy Verified 10/26/18 11:02 Cardiovascular: Yes: HTN, Hyperlipdemia Gastrointestinal: Yes: GERD Renal/: Yes: Other (CKD) Endocrine: Yes: Diabetes Mellitus - Current Medications Current Medications: Home Medications Medication Instructions Recorded Mirtazapine 45 mg PO HS 08/14/18 Omeprazole 40 mg PO DAILY 08/14/18 Ranolazine [Ranolazine ER] 500 mg PO BID 08/14/18 Simvastatin 20 mg PO DAILY 08/14/18 Metoprolol Succinate [Toprol XL -] 100 mg PO DAILY #30 tab.sr.24h 08/20/18 Linagliptin [Tradjenta] 5 mg PO DAILY 09/05/18 Ferrous Sulfate [Feosol] 325 mg PO DAILY #30 tab 09/10/18 Furosemide [Lasix -] 40 mg PO BID@0600,1400 #30 tablet 09/10/18 Nifedipine ER [Procardia XL -] 60 mg PO DAILY #30 tab.er.24 09/10/18 hydrALAZINE HCL [Apresoline -] 75 mg PO TID #90 tablet 09/10/18 Aspirin Coated [Ecotrin -] 81 mg PO DAILY 10/23/18 Satellite Physical Exam - Physical Examination Vital Signs: Vital Signs Period Temp Pulse Resp BP Sys/Allison Pulse Ox Last 24 Hr 98.0 F 70 20 164/71 100 General Appearance: Alert & Oriented x3 ENT: Clear Lung: Clear to auscultation Heart: Regular rate & rhythm Abdomen: Soft Extremities: No edema Satellite Impression/Plan - Impression/Plan Impression: CKD Operative Procedure: Creation AV fistula left arm Date to be Performed: 10/26/18
[2018-10-26] MEDS ORDERED: LIDOCAINE HCL 1%, 10 MG/ML (20ML VIAL) PNB ONE ×2 (11:57)
--- NOTE | 2018-10-26 12:56 | OP ---
Operative Note - Note: Operative Date: 10/26/18 Pre-Operative Diagnosis: Renal failure Operation: Creation AV fistula left arm Findings: Patent cephalic vein and brachial artery Post-Operative Diagnosis: Same as Pre-op Surgeon: Ibrahima Garrison Anesthesiologist/PRIMER BOXER: Angelito Birmingham Anesthesia: Fractional Estimated Blood Loss (mls): 20
[2018-10-26] MEDS ORDERED: ACETAMINOPHEN 325 MG TABLET (FP) PO PRN (12:57)
[2018-10-26] MEDS ORDERED: ACETAMINOPHEN WITH CODEINE 300MG/30MG TABLET PO PRN (12:57)
[2018-10-26 15:40] VITALS: BP 156/82; TEMP 97.8
[2018-10-26 15:46] VITALS: PULSE 82
--- NOTE | 2018-10-29 08:33 | OP ---
DATE OF OPERATION: 10/26/2018 SURGEON: Ibrahima Garrison MD PROCEDURE: Creation arteriovenous fistula in the left arm. PREOPERATIVE DIAGNOSIS: Renal failure. POSTOPERATIVE DIAGNOSIS: Renal failure. ANESTHESIA: Fractional. ANESTHESIOLOGIST: Aamir Birmingham MD OPERATIVE PROCEDURE: Following routine patient identification, side and site verification, intravenous sedation was established. The left arm was prepped with ChloraPrep. A time-out was performed. Lidocaine 1% was infiltrated in the antecubital fossa. A longitudinal incision was then made. The subcutaneous tissues were divided, using cautery for hemostasis. The antecubital section of the cephalic vein was mobilized from subcutaneous tissue with sharp dissection. It was ligated distally. It was incised and distended with heparin and papaverine solution. Number 5 and number 8 feeding tubes were passed proximally without resistance, and the vein was filled with heparin solution and then occluded with a small bulldog clamp. The side branches of the vein were ligated with silk ties and divided. The wound was then deepened through the muscle fascia, and the brachial artery was mobilized and secured with vessel loops. Side branch was ligated and artery. The artery was occluded with vessel loops, and opened on exposed surface with a 6-mm arteriotomy. The vein was then freed and spatulated, and anastomosed to the side of the artery with running suture of 6-0 Prolene. Prior to completion of the suture line, the area was allowed to back bleed and flush, and the vein was flushed with heparin solution. The suture line was completed. Then the vessels were released. There was good flow through the anastomosis with a palpable thrill in the vein proximally. Bleeding from the suture line was controlled with Surgicel. The wounds were irrigated and closed with interrupted suture of 3-0 Vicryl on the subcutaneous tissues and skin fish. Sterile dressings were applied. The patient was taken to the recovery room in stable condition. Willi [id number]
== END 2018-10-26 15:35 | disposition home or self-care (01) ==
LOC: JASU-SURG 10:18
PROVIDERS: ATTEND Surgery
PROC: 03180ZD Bypass Left Brachial Artery to Upper Arm Vein, Open Approach (ICD-10-PCS; principal; 2018-10-26 12:00)
DX: I12.0 Hypertensive chronic kidney disease with stage 5 chronic kidney disease or end stage renal disease (principal); E11.22 Type 2 diabetes mellitus with diabetic chronic kidney disease; N18.6 End stage renal disease
CPT/HCPCS: 82962; 94760; J1644

== ENCOUNTER → 2018-12-15 | Day surgery (SDC) | payer MEDICARE, OTHER | LOC: JRADIR 12:26 ==

== ENCOUNTER 2019-02-01 08:57 | Emergency (ER) | payer MEDICARE, OTHER ==
[2019-02-01 09:13] VITALS: BMI 17.8
--- NOTE | 2019-02-01 09:22 | PDOC ---
Attending Attestation - Resident Resident Name: Zaid Rock - ED Attending Attestation I have performed the following: I have examined & evaluated the patient, The case was reviewed & discussed with the resident, I agree w/resident's findings & plan, Exceptions are as noted
--- NOTE | 2019-02-01 09:57 | PDOC ---
History of Present Illness - General Chief Complaint: Urinary Catheter Problem Stated Complaint: NEPHROSTOMY TUBE FELL OFF Time Seen by Provider: 02/01/19 09:19 Past History - Past Medical History Allergies/Adverse Reactions: Allergies Allergy/AdvReac Type Severity Reaction Status Date / Time No Known Allergies Allergy Verified 10/26/18 11:02 Home Medications: Ambulatory Orders Mirtazapine 45 mg PO HS 08/14/18 Omeprazole 40 mg PO DAILY 08/14/18 Simvastatin 20 mg PO DAILY 08/14/18 Linagliptin [Tradjenta] 5 mg PO DAILY 09/05/18 Ferrous Sulfate [Feosol] 325 mg PO DAILY #30 tab 09/10/18 Aspirin Coated [Ecotrin -] 81 mg PO DAILY 10/23/18 Metoprolol Succinate [Toprol XL -] 100 mg PO DAILY 01/15/19 Nifedipine ER [Procardia XL -] 60 mg PO DAILY 01/15/19 Furosemide [Lasix -] 40 mg PO DAILY 02/01/19 Sodium Bicarbonate - 650 mg PO TID 02/01/19 hydrALAZINE HCL [Apresoline -] 100 mg PO TID 02/01/19 COPD: No Diabetes: Yes HTN: Yes - Reproductive History Cervical CA: No Dysfunctional Uterine Bleeding: No Ectopic : No Endometrial CA: No Polycystic Ovaries: No Tubal Ligation: No - Immunization History Immunization Up to Date: No - Psycho Social/Smoking Cessation Hx Smoking Status: No Smoking History: Never smoked Have you smoked in the past 12 months: No Number of Cigarettes Smoked Daily: 0 Information on smoking cessation initiated: No Hx Alcohol Use: No Drug/Substance Use Hx: No Substance Use Type: None Hx Substance Use Treatment: No *Physical Exam - Vital Signs Last Vital Signs Temp Pulse Resp BP Pulse Ox 98.5 F 77 16 134/49 L 97 02/01/19 09:08 02/01/19 09:08 02/01/19 09:08 02/01/19 09:08 02/01/19 09:08 ED Treatment Course - RADIOLOGY Radiology Studies Ordered: Category Date Time Status NEPH.TUBE CHANGE-RIGHT [RADS] Stat Radiology 02/01/19 09:20 Ordered Discharge - Discharge Information Condition: Stable - Follow up/Referral Referrals: Matthew Dye [Primary Care Provider] - - Patient Discharge Instructions - Post Discharge Activity
--- NOTE | 2019-02-01 10:13 | PDOC ---
History of Present Illness - General Chief Complaint: Urinary Catheter Problem Stated Complaint: NEPHROSTOMY TUBE FELL OFF Time Seen by Provider: 02/01/19 09:19 History Source: Patient Exam Limitations: No Limitations - History of Present Illness Initial Comments: 02/01/19 10:12 73y F hx of htn, anemia, ck, hl, gerd, right obstructing nephrolithiasis sp right nephrostomy tube presents due to dislodgement of the tube. Pt notes that it had stopped putting out urine sometine around friday. On Friday evening, she noticed was dislodged. Pt denies any other complaints including sob, cp, increasd leg swelling, fever/chills, back pain, abd pain. Pt notes chronic leg edema and today was a bit improved relative to usual .. Meds: Hydralazine, Metoprolol, Mertazipine, Simvastatin, Omeprazole Allergies: Denies SH: Denies x3 PMD: Dr Dye Past History - Past Medical History Allergies/Adverse Reactions: Allergies Allergy/AdvReac Type Severity Reaction Status Date / Time No Known Allergies Allergy Verified 10/26/18 11:02 Home Medications: Ambulatory Orders Mirtazapine 45 mg PO HS 08/14/18 Omeprazole 40 mg PO DAILY 08/14/18 Simvastatin 20 mg PO DAILY 08/14/18 Linagliptin [Tradjenta] 5 mg PO DAILY 09/05/18 Ferrous Sulfate [Feosol] 325 mg PO DAILY #30 tab 09/10/18 Aspirin Coated [Ecotrin -] 81 mg PO DAILY 10/23/18 Metoprolol Succinate [Toprol XL -] 100 mg PO DAILY 01/15/19 Nifedipine ER [Procardia XL -] 60 mg PO DAILY 01/15/19 Furosemide [Lasix -] 40 mg PO DAILY 02/01/19 Sodium Bicarbonate - 650 mg PO TID 02/01/19 hydrALAZINE HCL [Apresoline -] 100 mg PO TID 02/01/19 COPD: No Diabetes: Yes HTN: Yes - Reproductive History Cervical CA: No Dysfunctional Uterine Bleeding: No Ectopic : No Endometrial CA: No Polycystic Ovaries: No Tubal Ligation: No - Immunization History Immunization Up to Date: No - Psycho Social/Smoking Cessation Hx Smoking Status: No Smoking History: Never smoked Have you smoked in the past 12 months: No Number of Cigarettes Smoked Daily: 0 Information on smoking cessation initiated: No Hx Alcohol Use: No Drug/Substance Use Hx: No Substance Use Type: None Hx Substance Use Treatment: No Review of Systems - Review of Systems Able to Perform ROS?: Yes Comments:: 02/01/19 10:25 CONSTITUTIONAL: No reported: Fever, Chills, Diaphoresis, Generalized Weakness, Malaise, Loss of Appetite HEENT: No reported: Rhinorrhea, Nasal Congestion, Throat Pain, Throat Swelling, Difficulty Swallowing, Mouth Swelling, Ear Pain, Eye Pain, Visual Changes CARDIOVASCULAR: No reported: Chest Pain, Syncope, Palpitations, Irregular Heart Rate, Lightheadedness RESPIRATORY: No reported: Cough, Shortness of Breath, SOB with Exertion, Orthopnea, Wheezing , Stridor, Hemoptysis GASTROINTESTINAL: No reported: Abdominal pain, Abdominal Distension, Nausea, Vomiting, Diarrhea, Constipation, Melena, Hematochezia GENITOURINARY: No reported: Dysuria, Frequency, Urgency, Hesitancy, Flank Pain, Genital Pain MUSCULOSKELETAL: +bl LE edema No reported: Myalgia, Arthralgia, Joint Swelling, Back pain, Neck Pain SKIN: No reported: Rash, Itching, Pallor HEMEATOLOGIC/IMMUNOLOGIC: No reported: Easy Bleeding, Easy Bruising, Lymphadenopathy, Frequent infections ENDOCRINE: No reported: Unexplained Weight Gain, Unexplained Weight Loss, Heat Intolerance , Cold Intolerance NEUROLOGIC: No reported: Headache, Focal Weakness, Paresthesias, Vertigo, Lightheadedness, Unsteady Gait, Seizure, Mental Status Changes, Incontinence PSYCHIATRIC: No reported: Anxiety, Depression *Physical Exam - Vital Signs Last Vital Signs Temp Pulse Resp BP Pulse Ox 98.5 F 77 16 134/49 L 97 02/01/19 09:08 02/01/19 09:08 02/01/19 09:08 02/01/19 09:08 02/01/19 09:08 - Physical Exam Comments: 02/01/19 10:26 GENERAL: The patient is awake, alert, and fully oriented, Nontoxic - in no acute distress. HEAD: Normocephalic, atraumatic. EYES: extraocular movements intact, sclera anicteric, conjunctiva clear. ENT: Normal voice, Moist mucous membranes. NECK: Normal range of motion, supple LUNGS: Breath sounds equal, clear to auscultation bilaterally. No wheezes, no rhonchi, no rales. HEART: Regular rate and rhythm, without murmur, rub or gallop. ABDOMEN: Soft, nontender, No guarding, no rebound.No CVA tenderness BACK: dressing in place, no erythema, no tube present on R flank/back EXTREMITIES: Normal range of motion, bl pitting edema in LE No cyanosis. No erythema, or tenderness. NEUROLOGICAL: No facial assymetry, Normal speech, PSYCH: Normal mood, normal affect. SKIN: Warm, Dry, normal turgor, Heart Score/ECG Review - ECG Impressions Comment:: 02/01/19 12:03 Twelve-lead EKG was performed and reviewed by me. There is normal sinus rhythm with a normal rate. Rate of 70 Left ventricular hypertrophy Nonspecific ST wave changes ED Treatment Course - LABORATORY CBC & Chemistry Diagram: 02/01/19 10:00 02/01/19 10:00 Medical Decision Making - Medical Decision Making 02/01/19 10:27 will obtain preop labs will dw IR to see if we can get her neprhostomy tube replaced 02/01/19 11:07 pts labs reviewed cr slightly elevated at 5.5 relative to he baseline -discussed with Dr. Soto they state that she will follow-up with him on Friday pt in OR getting her neprhostomy tube repalced at this time 02/01/19 13:18 The patient nephrostomy tube was replaced by IR will discharge patient to follow -up with Dr. Soto on Friday and with the IR department next Friday. I discussed the physical exam findings, ancillary test results and final diagnoses with the patient. I answered all of the patient's questions. The patient was satisfied with the care received and felt comfortable with the discharge plan and treatment plan. The patient will call their primary care physician within 24 hours to arrange follow-up and will return to the Emergency Department with any new, persistent or worsening symptoms. Discharge - Discharge Information Problems reviewed: Yes Clinical Impression/Diagnosis: Nephrostomy tube displaced CKD (chronic kidney disease) Qualifiers: Chronic kidney disease stage: unspecified stage Qualified Code(s): N18.9 - Chronic kidney disease, unspecified Condition: Improved Disposition: HOME - Admission No - Follow up/Referral Referrals: Matthew Dye [Primary Care Provider] - Charly Soto MD [Staff Physician] - - Patient Discharge Instructions Patient Printed Discharge Instructions: DI for Percutaneous Nephrolithotomy or Nephrolithotripsy Additional Instructions: [facility] workup. FOllow up with dr. Soto this friday as scheduled and with the IR department as scheduled at 9am on 02/10. Print Language: BELARUSIAN - Post Discharge Activity
[2019-02-01 10:14] LABS: EOS % 1.7 % (0-4.5); HEMATOCRIT 25.2 % (32.4-45.2); HEMOGLOBIN 8.4 GM/dL (10.7-15.3); LYMPH % 11.3 % (8-40); MCH 30.8 pg (25.7-33.7); MCHC 33.2 g/dl (32.0-36.0); MEAN CELL VOLUME 92.7 fl (80-96); MEAN PLT VOLUME 8.9 fl (7.5-11.1); MONO % 6.1 % (3.8-10.2); NEUT % 79.9 % (42.8-82.8); PLATELET COUNT 304 K/MM3 (134-434); RBC 2.72 M/mm3 (3.60-5.2); RDW 15.2 % (11.6-15.6); WHITE BLOOD COUNT 6.7 K/mm3 (4.0-10.0)
[2019-02-01 10:25] LABS: INR 0.93 (0.83-1.09)
[2019-02-01 10:38] LABS: ALBUMIN 3.8 g/dl (3.4-5.0); BILIRUBIN,TOTAL 0.3 mg/dL (0.2-1); BLOOD UREA NITROGEN 50.6 mg/dL (7-18); CREATININE 5.5 mg/dL (0.55-1.3); POTASSIUM 4.6 mmol/L (3.5-5.1); TOT PROT 7.8 g/dl (6.4-8.2)
[2019-02-01 13:35] VITALS: BP 130/50; PULSE 78; TEMP 98.4
--- NOTE | 2019-02-01 15:53 | EKG ---
Test Reason : Blood Pressure : / mmHG Vent. Rate : 070 BPM Atrial Rate : 070 BPM P-R Int : 166 ms QRS Dur : 088 ms QT Int : 446 ms P-R-T Axes : 065 007 053 degrees QTc Int : 481 ms NORMAL SINUS RHYTHM POSSIBLE LEFT ATRIAL ENLARGEMENT LEFT VENTRICULAR HYPERTROPHY NONSPECIFIC ST ABNORMALITY ABNORMAL ECG WHEN COMPARED WITH ECG OF 05-SEP-2018 07:44, T WAVE VARIATION Confirmed by SOPHIE GREEN, KIKE ([id number]) on 02/01/2019 3:52:57 PM Referred By: Confirmed By:KIKE BARRIOS MD
== END 2019-02-01 13:35 | disposition home or self-care (01) ==
LOC: JER 08:57
PROC: 3E0233Z Introduction of Anti-inflammatory into Muscle, Percutaneous Approach (ICD-10-PCS; principal; 2019-02-01)
DX: M54.9 Dorsalgia, unspecified (principal); F17.210 Nicotine dependence, cigarettes, uncomplicated
CPT/HCPCS: 36415; 50435; 80053; 85025; 85610; 93005; 93010; 99284-25; A4358; C1729; C1769; C1887

== ENCOUNTER 2019-02-17 09:02 | Day surgery (SDC) | payer MEDICARE, OTHER ==
[2019-02-15 13:58] VITALS: BMI 17.6
[2019-02-17 09:23] VITALS: TEMP 98.2
[2019-02-17 13:35] VITALS: BP 153/70; PULSE 74
== END 2019-02-17 13:00 | disposition home or self-care (01) ==
LOC: JRADIR 09:02
PROVIDERS: ATTEND Radiology Diagnostic Radiology
PROC: BT11YZZ Fluoroscopy of Right Kidney using Other Contrast (ICD-10-PCS; principal; 2019-02-17)
PROC: 0TP5X0Z Removal of Drainage Device from Kidney, External Approach (ICD-10-PCS; 2019-02-17)
PROC: 0T763DZ Dilation of Right Ureter with Intraluminal Device, Percutaneous Approach (ICD-10-PCS; 2019-02-17)
DX: N13.1 Hydronephrosis with ureteral stricture, not elsewhere classified (principal)
CPT/HCPCS: 50693; C1769; C1887

== ENCOUNTER 2019-03-27 13:45 | Inpatient (IN) | payer MEDICARE, OTHER ==
--- NOTE | 2019-03-27 14:25 | PDOC ---
History of Present Illness - General Chief Complaint: Weakness Stated Complaint: SOB / WEAKNESS Time Seen by Provider: 03/27/19 14:12 History Source: Patient Exam Limitations: No Limitations - History of Present Illness Initial Comments: 74-year-old female with past medical history of hypertension, hyperlipidemia, CKD stage five, newly placed left upper extremity fistula that has not been used yet, diabetes, nephrolithiasis requiring lithotripsy and ureteral stent presented to the emergency department for productive cough for four days associated with shortness of breath. Patient reported no fever, chest pain, nausea, vomiting, diarrhea, abdominal pain, headache, body aches, sweats, chills. Patient reported she feel short of breath more so when she lies flat. She reported she is supposed to be on Lasix 40 mg BID, but one week ago she decreased it on her own to Lasix 40 mg Daily without the approval of her doctors , because she felt her lower extremity swelling has much improved. She reported today she still feels her lower extremity swelling is improved. ROS General: denied fever, chills, generalized weakness. HEENT: denied sore throat, rhinorrhea, ear pain. Cardiovascular: denied chest pain, palpitations, syncope, diaphoresis. Respiratory: admitted to shortness of breath, cough, sputum production. denied hemoptysis. Gastrointestinal: denied abdominal pain, nausea, vomiting, diarrhea, constipation, blood in stool. Genitourinary: denied dysuria, increased urinary frequency, hematuria, urinary incontinence, flank pain. Back: denied back pain. Musculoskeletal: denied joint pain, muscle pain, joint swelling. Neurological: denied headache, dizziness, numbness, tingling, weakness. Integumentary: denied rash, laceration, abrasion. Hematologic/Lymphatic: denied bruising or bleeding. PE Constitutional: Well-nourished, Well-developed, appearing stated age. HEENT: head is normocephalic, atraumatic. EOMI. PERRLA. Neck: supple. Full ROM. Cardiovascular: regular heart rhythm. no murmurs. Respiratory: rhonchi bilaterally. Gastrointestinal: soft, nontender. normal bowel sounds. no rebound, guarding, masses. Extremities: peripheral pulses intact. 4+ pitting edema to bilateral LE. Neurological: CN 2-12 grossly intact. moves all four extremities. Psych: awake, alert, oriented x3. follows commands. answers questions appropriately. Past History - Past Medical History Allergies/Adverse Reactions: Allergies Allergy/AdvReac Type Severity Reaction Status Date / Time No Known Allergies Allergy Verified 03/27/19 13:54 Home Medications: Ambulatory Orders Mirtazapine 45 mg PO HS 08/14/18 Omeprazole 40 mg PO DAILY 08/14/18 Simvastatin 20 mg PO DAILY 08/14/18 Linagliptin [Tradjenta] 5 mg PO DAILY 09/05/18 Ferrous Sulfate [Feosol] 325 mg PO DAILY #30 tab 09/10/18 Aspirin Coated [Ecotrin -] 81 mg PO DAILY 10/23/18 Metoprolol Succinate [Toprol XL -] 100 mg PO DAILY 01/15/19 Nifedipine ER [Procardia XL -] 90 mg PO DAILY 01/15/19 Furosemide [Lasix -] 40 mg PO DAILY 02/01/19 Sodium Bicarbonate - 650 mg PO TID 02/01/19 hydrALAZINE HCL [Apresoline -] 100 mg PO TID 02/01/19 Cyanocobalamin Vit B-12 Inj. [Redisol] 1,000 mcg IJ DAILY 02/15/19 Multivitamin [One-Daily Multi-Vitamin] 1 each PO DAILY 02/15/19 - Immunization History Immunization Up to Date: No - Psycho Social/Smoking Cessation Hx Smoking Status: No Smoking History: Never smoked Have you smoked in the past 12 months: No Number of Cigarettes Smoked Daily: 0 Hx Alcohol Use: No Drug/Substance Use Hx: No Substance Use Type: None Hx Substance Use Treatment: No *Physical Exam - Vital Signs Last Vital Signs Temp Pulse Resp BP Pulse Ox 99.0 F 77 18 129/60 93 L 03/27/19 13:51 03/27/19 13:51 03/27/19 13:51 03/27/19 13:51 03/27/19 13:51 ED Treatment Course - LABORATORY CBC & Chemistry Diagram: 03/27/19 14:30 03/27/19 14:30 - RADIOLOGY Radiology Studies Ordered: Category Date Time Status CHEST PA & LAT [RAD] Stat Radiology 03/27/19 14:24 Ordered Medical Decision Making - Medical Decision Making 74 year old female with above PMH presented to ED for productive cough x4 days associated with shortness of breath. Initial Vital Signs Temp Pulse Resp BP Pulse Ox 99.0 F 77 18 129/60 93 L 03/27/19 13:51 03/27/19 13:51 03/27/19 13:51 03/27/19 13:51 03/27/19 13:51 Labs ordered: CBC, CMP, Mg, Phos, Influenza Imaging ordered: CXR Medications ordered: duoneb ECHO 09/09/18: normal EF of 65%. 10/26/18: left upper extremity fistula placed by Dr. Garrison EKG performed at 1521: rate 72, regular rhythm, normal axis, QTc 473, 1 PVC, no acute ST changes. CXr my view: cardiomegaly. no infiltrate. pulmonary vascular congestion. -Pending official report. 03/27/19 15:34 Influenza A (Rapid) Negative (Negative) 03/27/19 14:30 Influenza B (Rapid) Negative (Negative) 03/27/19 14:30 03/27/19 17:03 CBC WBC 7.5 K/mm3 (4.0-10.0) 03/27/19 14:30 RBC 3.56 M/mm3 (3.60-5.2) L 03/27/19 14:30 Hgb 10.4 GM/dL (10.7-15.3) L 03/27/19 14:30 Hct 32.1 % (32.4-45.2) L D 03/27/19 14:30 MCV 90.0 fl (80-96) 03/27/19 14:30 MCH 29.1 pg (25.7-33.7) 03/27/19 14:30 MCHC 32.3 g/dl (32.0-36.0) 03/27/19 14:30 RDW 16.9 % (11.6-15.6) H 03/27/19 14:30 Plt Count 459 K/MM3 (134-434) H D 03/27/19 14:30 MPV 7.8 fl (7.5-11.1) D 03/27/19 14:30 Absolute Neuts (auto) 5.4 K/mm3 (1.5-8.0) 03/27/19 14:30 Neutrophils % 72.0 % (42.8-82.8) 03/27/19 14:30 Lymphocytes % 15.8 % (8-40) D 03/27/19 14:30 Monocytes % 9.6 % (3.8-10.2) 03/27/19 14:30 Eosinophils % 1.2 % (0-4.5) 03/27/19 14:30 Basophils % 1.4 % (0-2.0) 03/27/19 14:30 Nucleated RBC % 0 % (0-0) 03/27/19 14:30 03/27/19 17:19 Laboratory Last Values WBC 7.5 K/mm3 (4.0-10.0) 03/27/19 14:30 RBC 3.56 M/mm3 (3.60-5.2) L 03/27/19 14:30 Hgb 10.4 GM/dL (10.7-15.3) L 03/27/19 14:30 Hct 32.1 % (32.4-45.2) L D 03/27/19 14:30 MCV 90.0 fl (80-96) 03/27/19 14:30 MCH 29.1 pg (25.7-33.7) 03/27/19 14:30 MCHC 32.3 g/dl (32.0-36.0) 03/27/19 14:30 RDW 16.9 % (11.6-15.6) H 03/27/19 14:30 Plt Count 459 K/MM3 (134-434) H D 03/27/19 14:30 MPV 7.8 fl (7.5-11.1) D 03/27/19 14:30 Absolute Neuts (auto) 5.4 K/mm3 (1.5-8.0) 03/27/19 14:30 Neutrophils % 72.0 % (42.8-82.8) 03/27/19 14:30 Lymphocytes % 15.8 % (8-40) D 03/27/19 14:30 Monocytes % 9.6 % (3.8-10.2) 03/27/19 14:30 Eosinophils % 1.2 % (0-4.5) 03/27/19 14:30 Basophils % 1.4 % (0-2.0) 03/27/19 14:30 Nucleated RBC % 0 % (0-0) 03/27/19 14:30 Sodium 140 mmol/L (136-145) 03/27/19 14:30 Potassium 4.7 mmol/L (3.5-5.1) 03/27/19 14:30 Chloride 106 mmol/L (98-107) 03/27/19 14:30 Carbon Dioxide 22 mmol/L (21-32) 03/27/19 14:30 Anion Gap 12 MMOL/L (8-16) 03/27/19 14:30 BUN 60.0 mg/dL (7-18) H 03/27/19 14:30 Creatinine 6.3 mg/dL (0.55-1.3) H 03/27/19 14:30 Est GFR (CKD-EPI)AfAm 6.94 03/27/19 14:30 Est GFR (CKD-EPI)NonAf 5.99 03/27/19 14:30 Random Glucose 132 mg/dL (74-106) H 03/27/19 14:30 Calcium 8.1 mg/dL (8.5-10.1) L 03/27/19 14:30 Magnesium 1.9 mg/dL (1.8-2.4) 03/27/19 14:30 Total Bilirubin 0.2 mg/dL (0.2-1) 03/27/19 14:30 AST 42 U/L (15-37) H 03/27/19 14:30 ALT 17 U/L (13-61) 03/27/19 14:30 Alkaline Phosphatase 97 U/L (45-117) 03/27/19 14:30 Troponin I 0.02 ng/ml (0.00-0.05) 03/27/19 14:30 Total Protein 6.8 g/dl (6.4-8.2) 03/27/19 14:30 Albumin 2.8 g/dl (3.4-5.0) L 03/27/19 14:30 Influenza A (Rapid) Negative (Negative) 03/27/19 14:30 Influenza B (Rapid) Negative (Negative) 03/27/19 14:30 SOB and cough likely 2/2 CHF exacerbation. Pt reported improvement of SOB with duoneb. Medications ordered: Lasix 40 mg IV once Pt to be admitted for CHF exacerbation. Discharge - Discharge Information Problems reviewed: Yes Clinical Impression/Diagnosis: Cough - Follow up/Referral - Patient Discharge Instructions - Post Discharge Activity
[2019-03-27] MEDS ORDERED: ALBUTEROL SO4 2.5/IPRATROPIUM 0.5 INH SOL 3 ML VIAL.NEB. NEB ONE ×2 (14:47→17:04)
--- NOTE | 2019-03-27 16:24 | PDOC ---
Documentation entered by Gabriela Cabral SCRIBE, acting as scribe for Poli Gonzalez MD. Poli Gonzalez MD: This documentation has been prepared by the Misha del rosario Adrianna, SCRIBE, under my direction and personally reviewed by me in its entirety. I confirm that the documentation accurately reflects all work, treatment, procedures, and medical decision making performed by me. Attending Attestation - Resident Resident Name: Morenita Oneal - ED Attending Attestation I have performed the following: I have examined & evaluated the patient, The case was reviewed & discussed with the resident, I agree w/resident's findings & plan, Exceptions are as noted - HPI HPI: The patient is a 74 year old female, with a significant PMH of HTN, HLD, CKD stage 5, LUE fistula (new, has not been used yet), DM, nephrolithiasis ( requiring lithotripsy and ureteral stent), who presents to the ED for evaluation of cough and SOB for 4 days. Patient complains of a productive cough , with dyspnea and orthopnea. Patient is supposed to take 40mg of Lasix two times a day, but has only be taking one a day as she feels her bilateral lower extremity edema has been progressively getting better. Otherwise, denies headache, dizziness, focal weakness/numbness, CP, abd pain, N/ V/D, urinary sxs. Allergies: NKA, NKDA Surgical History: None reported Social History: Denies EtOH, tobacco, or illicit drug use PCP: Dr. Dye - Physicial Exam PE: 03/27/19 17:33 Agree with resident exam - Medical Decision Making 03/27/19 17:33 74-year-old female with multiple medical problems including end-stage renal disease status post fistula, but not yet initiated hemodialysis presents emergency department with dyspnea on exertion. Of note patient halved her dose of Lasix last week as she noticed that her leg swelling had improved. Patient is hypoxic to 93%., Her exam is consistent with fluid overload and she has rhonchorous breath sounds. Plan to obtain labs including BNP, chest x-ray, and likely give IV Lasix for diuresis. Patient has been seen by her manager strategic development Dr. Soto who recommends consultation with Dr. Garrison to see if fistula is ready for use. Consult has been placed. Anticipate admission. 03/27/19 17:59 Case discussed with LEIDA Rios. Patient accepted for admission to Dr. Stone's service. Case discussed in detail with admitting physician including history, physical exam and ancillary studies. Admitting physician has assumed care for the patient, will follow all pending diagnostics and will complete the evaluation and treatment. Heart Score/ECG Review #1 03/27/19 17:37 Twelve-lead EKG was performed and reviewed by me. Sinus rhythm, rate 72. Normal axis. No ST elevations. T wave inversions in V2 and V3. When compared to EKG from January 2019, T wave inversions are new.
[2019-03-27 16:45] LABS: BASO % 1.4 % (0-2.0); EOS % 1.2 % (0-4.5); HEMATOCRIT 32.1 % (32.4-45.2); HEMOGLOBIN 10.4 GM/dL (10.7-15.3); LYMPH % 15.8 % (8-40); MCH 29.1 pg (25.7-33.7); MCHC 32.3 g/dl (32.0-36.0); MEAN PLT VOLUME 7.8 fl (7.5-11.1); MONO % 9.6 % (3.8-10.2); PLATELET COUNT 459 K/MM3 (134-434); RBC 3.56 M/mm3 (3.60-5.2); RDW 16.9 % (11.6-15.6); WHITE BLOOD COUNT 7.5 K/mm3 (4.0-10.0)
[2019-03-27 17:03] LABS: ALBUMIN 2.8 g/dl (3.4-5.0); BILIRUBIN,TOTAL 0.2 mg/dL (0.2-1); CALCIUM 8.1 mg/dL (8.5-10.1); CREATININE 6.3 mg/dL (0.55-1.3); MAGNESIUM 1.9 mg/dL (1.8-2.4); POTASSIUM 4.7 mmol/L (3.5-5.1); TOT PROT 6.8 g/dl (6.4-8.2)
[2019-03-27] MEDS ORDERED: FUROSEMIDE 40 MG/4 ML INJECTABLE VIAL IVPUSH ONE (17:10)
[2019-03-27] MEDS ORDERED: FUROSEMIDE 40 MG/4 ML INJECTABLE VIAL ONE (17:35)
[2019-03-27 18:22] LABS: N-TERMINAL BNP 35573.3 pg/ml (5-125); PHOSPHOROUS 4.3 mg/dL (2.5-4.9)
--- NOTE | 2019-03-27 18:52 | HP ---
CHIEF COMPLAINT:SOB x 4 days PCP:Hardik HISTORY OF PRESENT ILLNESS: Jacob Jensen is a 74-year-old female with past medical history of hypertension, hyperlipidemia, CKD stage five, newly placed left upper extremity fistula that has not been used yet, diabetes, nephrolithiasis requiring lithotripsy and ureteral stent presented to ER for productive cough for four days associated with shortness of breath. Patient reported no fever, chest pain , nausea, vomiting, diarrhea, abdominal pain, headache, body aches, sweats, chills. pt reported she had cold like symptoms few days ago, with associated SOB. She reported she was told by her DR to take Lasix 40 mg BID for BLE swelling, but one week ago she decreased it on her own to Lasix 40 mg Daily without the approval of her doctors, because she felt her lower extremity swelling has much improved. She reported today she still feels her lower extremity swelling is improved. ER course was notable for: (1)BNP 02654 (2)Creat 6.3 (3) Recent Travel: PAST MEDICAL HISTORY: HTN HLD CKD Stage 5 DM PAST SURGICAL HISTORY: Social History: Smoking:Denies Alcohol:Denies Drugs: Denies Allergies No Known Allergies Allergy (Verified 03/27/19 13:54) HOME MEDICATIONS: Home Medications Medication Instructions Recorded Mirtazapine 45 mg PO HS 08/14/18 Omeprazole 40 mg PO DAILY 08/14/18 Simvastatin 20 mg PO DAILY 08/14/18 Linagliptin [Tradjenta] 5 mg PO DAILY 09/05/18 Ferrous Sulfate [Feosol] 325 mg PO DAILY #30 tab 09/10/18 Aspirin Coated [Ecotrin -] 81 mg PO DAILY 10/23/18 Metoprolol Succinate [Toprol XL -] 100 mg PO DAILY 01/15/19 Nifedipine ER [Procardia XL -] 90 mg PO DAILY 01/15/19 Furosemide [Lasix -] 40 mg PO DAILY 02/01/19 Sodium Bicarbonate - 650 mg PO TID 02/01/19 hydrALAZINE HCL [Apresoline -] 100 mg PO TID 02/01/19 Cyanocobalamin Vit B-12 Inj. 1,000 mcg IJ DAILY 02/15/19 [Redisol] Multivitamin [One-Daily 1 each PO DAILY 02/15/19 Multi-Vitamin] REVIEW OF SYSTEMS CONSTITUTIONAL: Absent: fever, chills, diaphoresis, generalized weakness, malaise, loss of appetite, weight change HEENT: Absent: rhinorrhea, nasal congestion, throat pain, throat swelling, difficulty swallowing, mouth swelling, ear pain, eye pain, visual changes CARDIOVASCULAR: Absent: chest pain, syncope, palpitations, irregular heart rate, lightheadedness , peripheral edema RESPIRATORY: +Productive cough, SOB on exertion, Absent: orthopnea, wheezing, stridor, hemoptysis GASTROINTESTINAL: Absent: abdominal pain, abdominal distension, nausea, vomiting, diarrhea, constipation, melena, hematochezia GENITOURINARY: Absent: dysuria, frequency, urgency, hesitancy, hematuria, flank pain, genital pain MUSCULOSKELETAL: Absent: myalgia, arthralgia, joint swelling, back pain, neck pain SKIN: Absent: rash, itching, pallor HEMATOLOGIC/IMMUNOLOGIC: Absent: easy bleeding, easy bruising, lymphadenopathy, frequent infections ENDOCRINE: Absent: unexplained weight gain, unexplained weight loss, heat intolerance, cold intolerance NEUROLOGIC: Absent: headache, focal weakness or paresthesias, dizziness, unsteady gait, seizure, mental status changes, bladder or bowel incontinence PSYCHIATRIC: Absent: anxiety, depression, suicidal or homicidal ideation, hallucinations. PHYSICAL EXAMINATION Vital Signs - 24 hr 03/27/19 03/27/19 13:51 14:23 Temperature 99.0 F Pulse Rate 77 Respiratory 18 Rate Blood Pressure 129/60 O2 Sat by Pulse 93 L 96 Oximetry (%) GENERAL: Awake, alert, and fully oriented, in no acute distress. HEAD: Normal with no signs of trauma. EYES: Pupils equal, round and reactive to light, extraocular movements intact, sclera anicteric, conjunctiva clear. No lid lag. EARS, NOSE, THROAT: Ears normal, nares patent, oropharynx clear without exudates. Moist mucous membranes. NECK: Normal range of motion, supple without lymphadenopathy, JVD, or masses. LUNGS: b/l rhonci, no wheezing HEART: Regular rate and rhythm, normal S1 and S2 without murmur, rub or gallop. ABDOMEN: Soft, nontender, not distended, normoactive bowel sounds, no guarding, no rebound, no masses. No hepatomegaly or splenomegaly. MUSCULOSKELETAL: Normal range of motion at all joints. No bony deformities or tenderness. No CVA tenderness. UPPER EXTREMITIES: 2+ pulses, warm, well-perfused. No cyanosis. No clubbing. No peripheral edema. LOWER EXTREMITIES: 2+ B/L edema, no-pitting NEUROLOGICAL: Cranial nerves II-XII intact. Normal speech. Normal gait. PSYCHIATRIC: Cooperative. Good eye contact. Appropriate mood and affect. SKIN: Warm, dry, normal turgor, no rashes or lesions noted, normal capillary refill. Laboratory Results - last 24 hr 03/27/19 03/27/19 03/27/19 14:30 14:30 14:30 WBC 7.5 RBC 3.56 L Hgb 10.4 L Hct 32.1 L D MCV 90.0 MCH 29.1 MCHC 32.3 RDW 16.9 H Plt Count 459 H D MPV 7.8 D Absolute Neuts (auto) 5.4 Neutrophils % 72.0 Lymphocytes % 15.8 D Monocytes % 9.6 Eosinophils % 1.2 Basophils % 1.4 Nucleated RBC % 0 Sodium 140 Potassium 4.7 Chloride 106 Carbon Dioxide 22 Anion Gap 12 BUN 60.0 H Creatinine 6.3 H Est GFR (CKD-EPI)AfAm 6.94 Est GFR (CKD-EPI)NonAf 5.99 Random Glucose 132 H Calcium 8.1 L Phosphorus 4.3 Magnesium 1.9 Total Bilirubin 0.2 AST 42 H ALT 17 Alkaline Phosphatase 97 Troponin I 0.02 B-Natriuretic Peptide 82107.3 H Total Protein 6.8 Albumin 2.8 L Influenza A (Rapid) Negative Influenza B (Rapid) Negative ASSESSMENT/PLAN: Jacob Jensen is a 74-year-old female with past medical history of hypertension, hyperlipidemia, CKD stage five, newly placed left upper extremity fistula (not used yet) diabetes, nephrolithiasis s/p lithotripsy and ureteral stent admitted for Admitting Diagnosis SOB, CHF exacerbation Chronic Condition CKD stage 5 DM HTN HLD A/P: #CHF exacerbation -fio2 to keep O2 >94% -IV lasix 40mg Q12hrs -Cardio Consult -Echo 08/30 normal LVEF EF 65% -Echo -daily weights -strict I/O #CKD stage 5 -creat 6.3 -seen by Renal in ED -LUE fistula recently placed-consult for Meli -poss HD Friday -c/w sodium bicarb #DM -tradjenta on hold -ISC -POC AC/HS -diabetic diet #HTN #HLD -resume home meds #Hx of nephrolithiasis -s/p ureteral stent Full Code Dispo: requires inpatient treatment Visit type - Emergency Visit Emergency Visit: Yes ED Registration Date: 03/27/19 Care time: The patient presented to the Emergency Department on the above date and was hospitalized for further evaluation of their emergent condition. - New Patient This patient is new to me today: Yes Date on this admission: 03/27/19 - Critical Care Critical Care patient: No
--- NOTE | 2019-03-27 20:16 | CONSULT ---
Consult Consult Specialty:: Nephrology Reason for Consultation:: CKD - History of Present Illness Chief Complaint: weakness History of Present Illness: Pt is a 74 year old female with pmhx of ckd, htn, hld who presents with progressive weakness. She also complains of an URI. She has CKD stage 5. She does have a fistula in place. She denies shortness of breath. She does have lower ext edema. She has loss of appetite. She is awake and alert. She denies chest pain. She denies fevers or chills. She decreased her home dose of lasix to daily from bid. - History Source History Provided By: Patient, Medical Record - Past Medical History Cardio/Vascular: Yes: HTN, Hyperlipdemia Gastrointestinal: Yes: GERD Renal/: Yes: Renal Inusuff, Other (CKD) Endocrine: Yes: Diabetes Mellitus - Past Surgical History Past Surgical History: Yes: None - Alcohol/Substance Use Hx Alcohol Use: No History of Substance Use: reports: None - Smoking History Smoking history: Never smoked Have you smoked in the past 12 months: No Aproximately how many cigarettes per day: 0 - Social History ADL: Independent History of Recent Travel: No Home Medications - Allergies Allergies/Adverse Reactions: Allergies Allergy/AdvReac Type Severity Reaction Status Date / Time No Known Allergies Allergy Verified 03/27/19 13:54 - Home Medications Home Medications: Ambulatory Orders Mirtazapine 45 mg PO HS 08/14/18 Omeprazole 40 mg PO DAILY 08/14/18 Simvastatin 20 mg PO DAILY 08/14/18 Linagliptin [Tradjenta] 5 mg PO DAILY 09/05/18 Ferrous Sulfate [Feosol] 325 mg PO DAILY #30 tab 09/10/18 Aspirin Coated [Ecotrin -] 81 mg PO DAILY 10/23/18 Metoprolol Succinate [Toprol XL -] 100 mg PO DAILY 01/15/19 Nifedipine ER [Procardia XL -] 90 mg PO DAILY 01/15/19 Furosemide [Lasix -] 40 mg PO DAILY 02/01/19 Sodium Bicarbonate - 650 mg PO TID 02/01/19 hydrALAZINE HCL [Apresoline -] 100 mg PO TID 02/01/19 Cyanocobalamin Vit B-12 Inj. [Redisol] 1,000 mcg IJ DAILY 02/15/19 Multivitamin [One-Daily Multi-Vitamin] 1 each PO DAILY 02/15/19 Family Medical History Family History: Denies Review of Systems - Review of Systems Constitutional: reports: Malaise Eyes: reports: No Symptoms HENT: reports: No Symptoms Neck: reports: No Symptoms Cardiovascular: reports: No Symptoms Respiratory: reports: Cough Gastrointestinal: reports: No Symptoms Genitourinary: reports: No Symptoms Musculoskeletal: reports: No Symptoms Integumentary: reports: No Symptoms Neurological: reports: No Symptoms Endocrine: reports: No Symptoms Hematology/Lymphatic: reports: No Symptoms Psychiatric: reports: No Symptoms Physical Exam Vital Signs: Vital Signs Temperature 99.0 F 03/27/19 13:51 Pulse Rate 77 03/27/19 13:51 Respiratory Rate 18 03/27/19 13:51 Blood Pressure 129/60 03/27/19 13:51 O2 Sat by Pulse Oximetry (%) 96 03/27/19 14:23 Constitutional: Yes: Calm Eyes: Yes: Conjunctiva Clear HENT: Yes: Atraumatic Neck: Yes: Supple Cardiovascular: Yes: S1, S2 Respiratory: Yes: CTA Bilaterally Gastrointestinal: Yes: Soft Renal/: Yes: WNL Musculoskeletal: Yes: WNL Extremities: Yes: Other (fistula with thrill and bruit) Edema: Yes Edema: LLE: 2+, RLE: 2+ Neurological: Yes: Oriented Psychiatric: Yes: Oriented Labs: CBC, BMP 03/27/19 14:30 03/27/19 14:30 Problem List - Problems (1) Cough Code(s): R05 - COUGH (2) CKD (chronic kidney disease) Code(s): N18.9 - CHRONIC KIDNEY DISEASE, UNSPECIFIED Qualifiers: Chronic kidney disease stage: unspecified stage Qualified Code(s): N18.9 - Chronic kidney disease, unspecified Assessment/Plan Current Medications Generic Name Dose Route Start Last Admin Trade Name Freq PRN Reason Stop Dose Admin Aspirin 81 mg 03/28/19 10:00 Ecotrin - PO DAILY ASHELY Atorvastatin Calcium 10 mg 03/27/19 22:00 Lipitor - PO HS ASHELY Ferrous Sulfate 325 mg 03/28/19 10:00 Feosol - PO DAILY ASHELY Furosemide 40 mg 03/28/19 06:00 Lasix Injection - IVPUSH BID@0600,1400 ASHELY Heparin Sodium (Porcine) 5,000 unit 03/27/19 22:00 Heparin - SQ BID ASHELY Hydralazine HCl 100 mg 03/27/19 22:00 Apresoline - PO TID [facility] Insulin Aspart 1 vial 03/27/19 22:00 Novolog Vial Sliding Scale - SQ ACHS [facility] Protocol Metoprolol Succinate 100 mg 03/28/19 10:00 Toprol Xl - PO DAILY [facility] Mirtazapine 45 mg 03/27/19 22:00 Remeron - PO HS [facility] Multivitamins/Minerals/Vitamin C 1 tab 03/28/19 10:00 Tab-A-Vit - PO DAILY [facility] Nifedipine 90 mg 03/28/19 10:00 Procardia Xl - PO DAILY [facility] Pantoprazole Sodium 40 mg 03/28/19 10:00 Protonix - PO DAILY [facility] Sodium Bicarbonate 650 mg 03/27/19 22:00 Sodium Bicarbonate - PO TID [facility] Impression 1. CKD 2. URI 3. DM 4. HTN 5. gerd 6. anemia Plan - check cxr - check flu swab - vascular eval to see if fistula ready for use - can cont lasix - will likely start HD on Friday - no acute indication for dialysis - renal diet - pt on epogen as outpt for anemia
[2019-03-27] MEDS ORDERED: PT OWN MED DRAWER 7, Y5N ONE (21:05)
[2019-03-27] MEDS ORDERED: hydrALAZINE HCL 25 MG TABLET (FP) ONE (21:06)
[2019-03-27] MEDS ORDERED: HEPARIN NA (PORCINE) 5,000 UNITS/ML 1ML VIAL ONE (21:07)
[2019-03-27] MEDS ORDERED: MIRTAZAPINE 15 MG TABLET (FP) ONE (21:07)
[2019-03-27] MEDS ORDERED: ATORVASTATIN CA 10 MG TABLET (FP) ONE (21:07)
[2019-03-27] MEDS: ATORVASTATIN CA 10 MG TABLET (FP) PO SCH (21:23)
[2019-03-27] MEDS: INSULIN SLIDING SCALE (NOVOLOG) 1 VIAL SQ SCH (21:23)
[2019-03-27] MEDS: MIRTAZAPINE 15 MG TABLET (FP) PO SCH (21:24)
[2019-03-27] MEDS: SODIUM BICARBONATE 650 MG TABLET PO SCH (21:24)
[2019-03-27] MEDS: HEPARIN NA (PORCINE) 5,000 UNITS/ML 1ML VIAL SQ SCH (21:24)
[2019-03-27] MEDS: hydrALAZINE HCL 50 MG TABLET (FP) PO SCH (21:24)
[2019-03-28 05:42] LABS: HEMATOCRIT 28.6 % (32.4-45.2); HEMOGLOBIN 9.3 GM/dL (10.7-15.3); MCH 29.2 pg (25.7-33.7); MCHC 32.6 g/dl (32.0-36.0); MEAN CELL VOLUME 89.7 fl (80-96); MEAN PLT VOLUME 7.5 fl (7.5-11.1); PLATELET COUNT 383 K/MM3 (134-434); RBC 3.19 M/mm3 (3.60-5.2); RDW 16.4 % (11.6-15.6); WHITE BLOOD COUNT 7.6 K/mm3 (4.0-10.0)
[2019-03-28] MEDS ORDERED: FUROSEMIDE 40 MG/4 ML INJECTABLE VIAL ONE (06:00)
[2019-03-28] MEDS ORDERED: hydrALAZINE HCL 25 MG TABLET (FP) ONE (06:00)
[2019-03-28 06:13] LABS: ALBUMIN 2.4 g/dl (3.4-5.0); BILIRUBIN,TOTAL 0.2 mg/dL (0.2-1); BLOOD UREA NITROGEN 63.9 mg/dL (7-18); CALCIUM 7.6 mg/dL (8.5-10.1); CREATININE 6.3 mg/dL (0.55-1.3); MAGNESIUM 1.9 mg/dL (1.8-2.4); POTASSIUM 4.8 mmol/L (3.5-5.1); TOT PROT 5.9 g/dl (6.4-8.2)
[2019-03-28] MEDS: FUROSEMIDE 40 MG/4 ML INJECTABLE VIAL IVPUSH SCH ×2 (06:33→14:03)
[2019-03-28] MEDS: hydrALAZINE HCL 50 MG TABLET (FP) PO SCH ×3 (06:33→21:42)
[2019-03-28] MEDS: SODIUM BICARBONATE 650 MG TABLET PO SCH ×3 (06:33→21:42)
[2019-03-28] MEDS: INSULIN SLIDING SCALE (NOVOLOG) 1 VIAL SQ SCH ×4 (07:07→21:42)
[2019-03-28] MEDS: FERROUS SO4 325 MG TABLET (FP) PO SCH (09:29)
[2019-03-28] MEDS: PANTOPRAZOLE 40 MG TABLET (FP) PO SCH (09:29)
[2019-03-28] MEDS: MULTIVITAMINS (DAILY MVI) TABLET (FP) PO SCH (09:29)
[2019-03-28] MEDS: ASPIRIN COATED 81 MG TABLET.EC PO SCH (09:29)
[2019-03-28] MEDS: HEPARIN NA (PORCINE) 5,000 UNITS/ML 1ML VIAL SQ SCH ×2 (09:29→21:42)
[2019-03-28] MEDS: NIFEdipine E.R. 90 MG TABLET (FP) PO SCH (09:29)
[2019-03-28] MEDS ORDERED: FUROSEMIDE 40 MG/4 ML INJECTABLE VIAL IVPUSH SCH (10:00)
--- NOTE | 2019-03-28 10:15 | EKG ---
Test Reason : Blood Pressure : / mmHG Vent. Rate : 072 BPM Atrial Rate : 072 BPM P-R Int : 146 ms QRS Dur : 082 ms QT Int : 432 ms P-R-T Axes : 058 005 033 degrees QTc Int : 473 ms SINUS RHYTHM WITH OCCASIONAL PREMATURE VENTRICULAR COMPLEXES POSSIBLE LEFT ATRIAL ENLARGEMENT T WAVE ABNORMALITY, CONSIDER ANTERIOR ISCHEMIA PROLONGED QT ABNORMAL ECG WHEN COMPARED WITH ECG OF 01-FEB-2019 10:56, PREMATURE VENTRICULAR COMPLEXES ARE NOW PRESENT T WAVE INVERSION NOW EVIDENT IN ANTERIOR LEADS Confirmed by VIRGINIE FAUST MD ([id number]) on 03/28/2019 10:15:11 AM Referred By: Confirmed By:VIRGINIE FAUST MD
--- NOTE | 2019-03-28 11:00 | CON.CARD ---
Consult Consult Specialty:: cardiology Referred by:: Edith Reason for Consultation:: Generalized fatigue, URI symptoms - History of Present Illness Chief Complaint: Generalized fatigue, URI symptoms History of Present Illness: The patient is a 74-year-old female,ith a history of hypertension, hyperlipidemia, chronic kidney disease approaching hemodialysis,GERD, bilateralleg edema, normal ejection fraction on echo 09/09/2018 with moderate mitral valve regurgitation,now admitted with URI symptoms and generalized weakness. Next The patient denies chest pains. No shortness of breath. No palpitations. She is currently quite comfortable. The patient is in sinus rhythm. The ECG is suggestiveof anterior ischemia. Completely asymptomatic. - History Source History Provided By: Patient, Medical Record Limitations to Obtaining History: No Limitations - Past Medical History Cardio/Vascular: Yes: HTN, Hyperlipdemia Gastrointestinal: Yes: GERD Renal/: Yes: Renal Inusuff, Other (CKD) Endocrine: Yes: Diabetes Mellitus - Past Surgical History Past Surgical History: Yes: None - Alcohol/Substance Use Hx Alcohol Use: No History of Substance Use: reports: None - Smoking History Smoking history: Never smoked Have you smoked in the past 12 months: No Aproximately how many cigarettes per day: 0 - Social History ADL: Independent History of Recent Travel: No Home Medications - Allergies Allergies/Adverse Reactions: Allergies Allergy/AdvReac Type Severity Reaction Status Date / Time No Known Allergies Allergy Verified 03/27/19 13:54 - Home Medications Home Medications: Ambulatory Orders Mirtazapine 45 mg PO HS 08/14/18 Omeprazole 40 mg PO DAILY 08/14/18 Simvastatin 20 mg PO DAILY 08/14/18 Linagliptin [Tradjenta] 5 mg PO DAILY 09/05/18 Ferrous Sulfate [Feosol] 325 mg PO DAILY #30 tab 09/10/18 Aspirin Coated [Ecotrin -] 81 mg PO DAILY 10/23/18 Metoprolol Succinate [Toprol XL -] 100 mg PO DAILY 01/15/19 Nifedipine ER [Procardia XL -] 90 mg PO DAILY 01/15/19 Furosemide [Lasix -] 40 mg PO DAILY 02/01/19 Sodium Bicarbonate - 650 mg PO TID 02/01/19 hydrALAZINE HCL [Apresoline -] 100 mg PO TID 02/01/19 Cyanocobalamin Vit B-12 Inj. [Redisol] 1,000 mcg IJ DAILY 02/15/19 Multivitamin [One-Daily Multi-Vitamin] 1 each PO DAILY 02/15/19 Review of Systems - Review of Systems Constitutional: reports: Lethargy, Loss of Appetite, Malaise Eyes: reports: No Symptoms HENT: reports: No Symptoms Neck: reports: No Symptoms Cardiovascular: reports: No Symptoms Respiratory: reports: Cough Gastrointestinal: reports: No Symptoms Genitourinary: reports: No Symptoms Breasts: reports: No Symptoms Reported Musculoskeletal: reports: Joint Pain, Muscle Pain Integumentary: reports: No Symptoms Neurological: reports: No Symptoms Endocrine: reports: No Symptoms Hematology/Lymphatic: reports: No Symptoms Psychiatric: reports: No Symptoms Vital Signs: Vital Signs Temperature 98.3 F 03/28/19 09:20 Pulse Rate 78 03/28/19 09:20 Respiratory Rate 18 03/28/19 09:20 Blood Pressure 175/91 H 03/28/19 09:20 O2 Sat by Pulse Oximetry (%) 96 03/27/19 14:23 Constitutional: Yes: Well Nourished, No Distress, Calm Eyes: Yes: WNL, Conjunctiva Clear, EOM Intact HENT: Yes: WNL, Atraumatic, Normocephalic Neck: Yes: WNL, Supple, Trachea Midline Respiratory: Yes: Rhonchi, Wheezes Gastrointestinal: Yes: WNL, Normal Bowel Sounds, Soft Renal/: Yes: WNL Cardiovascular: Yes: WNL, Regular Rate and Rhythm JVD: No Carotid Bruit: No PMI: Non-Displaced Heart Sounds: Yes: S1, S2 Murmur: Yes: Systolic Murmur, Grade 2 Musculoskeletal: Yes: Muscle Pain Extremities: Yes: WNL Edema: Yes Edema: LLE: 1+, RLE: 1+ Peripheral Pulses WNL: No Peripheral Pulses: 1+ Left Carotid, 1+ Right Carotid, 1+ Left Femoral, 1+ Right Femoral, 1+ Left Popliteal, 1+ Right Popliteal, 1+ Left Doralis Pedis, 1+ Right Dorsalis Pedis Integumentary: Yes: WNL Neurological: Yes: WNL, Alert, Oriented ...Motor Strength: WNL Psychiatric: Yes: WNL, Alert, Oriented - Other Data Labs, Other Data: CBC, BMP 03/28/19 05:30 03/28/19 05:30 Troponin, BNP 03/27/19 14:30 Troponin I 0.02 B-Natriuretic Peptide 57400.3 H Troponin, BNP 03/27/19 14:30 Troponin I 0.02 B-Natriuretic Peptide 79644.3 H Assessment/Plan The patient is a 74-year-old female,ith a history of hypertension, hyperlipidemia, chronic kidney disease approaching hemodialysis,GERD, bilateralleg edema, normal ejection fraction on echo 09/09/2018 with moderate mitral valve regurgitation,now admitted with URI symptoms and generalized weakness. Next The patient denies chest pains. No shortness of breath. No palpitations. She is currently quite comfortable. The patient is in sinus rhythm. The ECG is suggestiveof anterior ischemia. Completely asymptomatic. the patient is stable from the cardiac standpoint. She is completely asymptomatic. No CHF. Chronic leg edema. Approaching hemodialysis. There is no need for cardiac monitoring. No need for further cardiac workup at this point. We'll most likely need dialysisthis admission. Cardiac stable. Please do not hesitate to call us PRN
--- NOTE | 2019-03-28 11:24 | PN ---
Progress Note, Physician - Current Medication List Current Medications: Active Medications Aspirin (Ecotrin -) 81 mg PO DAILY [facility] Last Admin: 03/28/19 09:29 Dose: 81 mg Atorvastatin Calcium (Lipitor -) 10 mg PO HS [facility] Last Admin: 03/27/19 21:23 Dose: 10 mg Ferrous Sulfate (Feosol -) 325 mg PO DAILY [facility] Last Admin: 03/28/19 09:29 Dose: 325 mg Furosemide (Lasix Injection -) 40 mg IVPUSH BID@0600,1400 [facility] Last Admin: 03/28/19 06:33 Dose: 40 mg Heparin Sodium (Porcine) (Heparin -) 5,000 unit SQ BID [facility] Last Admin: 03/28/19 09:29 Dose: 5,000 unit Hydralazine HCl (Apresoline -) 100 mg PO TID [facility] Last Admin: 03/28/19 06:33 Dose: 100 mg Insulin Aspart (Novolog Vial Sliding Scale -) 1 vial SQ [facility]; Protocol Last Admin: 03/28/19 07:07 Dose: Not Given Metoprolol Succinate (Toprol Xl -) 100 mg PO DAILY [facility] Last Admin: 03/28/19 09:29 Dose: 100 mg Mirtazapine (Remeron -) 45 mg PO HS [facility] Last Admin: 03/27/19 21:24 Dose: 45 mg Multivitamins/Minerals/Vitamin C (Tab-A-Vit -) 1 tab PO DAILY [facility] Last Admin: 03/28/19 09:29 Dose: 1 tab Nifedipine (Procardia Xl -) 90 mg PO DAILY [facility] Last Admin: 03/28/19 09:29 Dose: 90 mg Pantoprazole Sodium (Protonix -) 40 mg PO DAILY [facility] Last Admin: 03/28/19 09:29 Dose: 40 mg Sodium Bicarbonate (Sodium Bicarbonate -) 650 mg PO TID [facility] Last Admin: 03/28/19 06:33 Dose: 650 mg - Objective Vital Signs: Vital Signs Temperature 98.3 F 03/28/19 09:20 Pulse Rate 78 03/28/19 09:20 Respiratory Rate 18 03/28/19 09:20 Blood Pressure 175/91 H 03/28/19 09:20 O2 Sat by Pulse Oximetry (%) 96 03/27/19 14:23 Cardiovascular: Yes: Regular Rate and Rhythm Respiratory: Yes: Diminished, Rales Gastrointestinal: Yes: Normal Bowel Sounds, Soft Labs: CBC, BMP 03/28/19 05:30 03/28/19 05:30 Problem List - Problems (1) Acute exacerbation of CHF (congestive heart failure) Assessment/Plan: -fio2 to keep O2 >94% -IV lasix 40mg Q12hrs -Cardio Consult -Echo 08/30 normal LVEF EF 65% -Echo -daily weights -strict I/O -will need dialysis Code(s): I50.9 - HEART FAILURE, UNSPECIFIED (2) CKD (chronic kidney disease) Assessment/Plan: CKD stage 5 -creat 6.3 -seen by Renal in ED -LUE fistula recently placed-consult for Meli -emile HD Friday -c/w sodium bicarb Code(s): N18.9 - CHRONIC KIDNEY DISEASE, UNSPECIFIED Qualifiers: Chronic kidney disease stage: unspecified stage Qualified Code(s): N18.9 - Chronic kidney disease, unspecified (3) Diabetes mellitus Assessment/Plan: -ISC -POC AC/HS -diabetic diet Code(s): E11.9 - TYPE 2 DIABETES MELLITUS WITHOUT COMPLICATIONS
--- NOTE | 2019-03-28 17:22 | PN ---
Progress Note, Physician History of Present Illness: Pt seen and examined at bedside. She does not want to start HD. Her son is at bedside. She is asking to go home. - Current Medication List Current Medications: Active Medications Aspirin (Ecotrin -) 81 mg PO DAILY [facility] Last Admin: 03/28/19 09:29 Dose: 81 mg Atorvastatin Calcium (Lipitor -) 10 mg PO HS [facility] Last Admin: 03/27/19 21:23 Dose: 10 mg Ferrous Sulfate (Feosol -) 325 mg PO DAILY [facility] Last Admin: 03/28/19 09:29 Dose: 325 mg Furosemide (Lasix Injection -) 40 mg IVPUSH BID@0600,1400 [facility] Last Admin: 03/28/19 14:03 Dose: 40 mg Heparin Sodium (Porcine) (Heparin -) 5,000 unit SQ BID [facility] Last Admin: 03/28/19 09:29 Dose: 5,000 unit Hydralazine HCl (Apresoline -) 100 mg PO TID [facility] Last Admin: 03/28/19 14:03 Dose: 100 mg Insulin Aspart (Novolog Vial Sliding Scale -) 1 vial SQ ACHS [facility]; Protocol Last Admin: 03/28/19 13:03 Dose: Not Given Metoprolol Succinate (Toprol Xl -) 100 mg PO DAILY [facility] Last Admin: 03/28/19 09:29 Dose: 100 mg Mirtazapine (Remeron -) 45 mg PO HS [facility] Last Admin: 03/27/19 21:24 Dose: 45 mg Multivitamins/Minerals/Vitamin C (Tab-A-Vit -) 1 tab PO DAILY [facility] Last Admin: 03/28/19 09:29 Dose: 1 tab Nifedipine (Procardia Xl -) 90 mg PO DAILY [facility] Last Admin: 03/28/19 09:29 Dose: 90 mg Pantoprazole Sodium (Protonix -) 40 mg PO DAILY [facility] Last Admin: 03/28/19 09:29 Dose: 40 mg Sodium Bicarbonate (Sodium Bicarbonate -) 650 mg PO TID [facility] Last Admin: 03/28/19 14:03 Dose: 650 mg - Objective Vital Signs: Vital Signs Temperature 98.0 F 03/28/19 14:03 Pulse Rate 77 03/28/19 14:03 Respiratory Rate 18 03/28/19 14:03 Blood Pressure 138/70 03/28/19 14:03 O2 Sat by Pulse Oximetry (%) 96 03/27/19 14:23 Constitutional: Yes: Calm Eyes: Yes: Conjunctiva Clear HENT: Yes: Atraumatic Neck: Yes: Supple Cardiovascular: Yes: S1, S2 Respiratory: Yes: CTA Bilaterally Gastrointestinal: Yes: Soft Genitourinary: Yes: WNL Musculoskeletal: Yes: WNL Edema: Yes Edema: LLE: 1+, RLE: 1+ Neurological: Yes: Oriented Psychiatric: Yes: Oriented Labs: CBC, BMP 03/28/19 05:30 03/28/19 05:30 Problem List - Problems (1) Cough Code(s): R05 - COUGH (2) CKD (chronic kidney disease) Code(s): N18.9 - CHRONIC KIDNEY DISEASE, UNSPECIFIED Qualifiers: Chronic kidney disease stage: unspecified stage Qualified Code(s): N18.9 - Chronic kidney disease, unspecified Assessment/Plan Current Medications Generic Name Dose Route Start Last Admin Trade Name Freq PRN Reason Stop Dose Admin Aspirin 81 mg 03/28/19 10:00 03/28/19 09:29 Ecotrin - PO 81 mg DAILY [facility] Administration Atorvastatin Calcium 10 mg 03/27/19 22:00 03/27/19 21:23 Lipitor - PO 10 mg HS [facility]LY Administration Ferrous Sulfate 325 mg 03/28/19 10:00 03/28/19 09:29 Feosol - PO 325 mg DAILY [facility] Administration Furosemide 40 mg 03/28/19 06:00 03/28/19 14:03 Lasix Injection - IVPUSH 40 mg BID@0600,1400 [facility] Administration Heparin Sodium (Porcine) 5,000 unit 03/27/19 22:00 03/28/19 09:29 Heparin - SQ 5,000 unit BID [facility] Administration Hydralazine HCl 100 mg 03/27/19 22:00 03/28/19 14:03 Apresoline - PO 100 mg TID ASHE[facility] Administration Insulin Aspart 1 vial 03/27/19 22:00 03/28/19 13:03 Novolog Vial Sliding Scale - SQ Not Given ACHS [facility] Protocol Metoprolol Succinate 100 mg 03/28/19 10:00 03/28/19 09:29 Toprol Xl - PO 100 mg DAILY [facility] Administration Mirtazapine 45 mg 03/27/19 22:00 03/27/19 21:24 Remeron - PO 45 mg HS [facility] Administration Multivitamins/Minerals/Vitamin C 1 tab 03/28/19 10:00 03/28/19 09:29 Tab-A-Vit - PO 1 tab DAILY [facility] Administration Nifedipine 90 mg 03/28/19 10:00 03/28/19 09:29 Procardia Xl - PO 90 mg DAILY [facility] Administration Pantoprazole Sodium 40 mg 03/28/19 10:00 03/28/19 09:29 Protonix - PO 40 mg DAILY [facility] Administration Sodium Bicarbonate 650 mg 03/27/19 22:00 03/28/19 14:03 Sodium Bicarbonate - PO 650 mg TID ASHE[facility] Administration Impression 1. CKD 2. URI 3. DM 4. HTN 5. gerd 6. anemia Plan - pt does not want to start HD at this time - I recommend that she starts and I discussed this with her and her son - cxr reviewed - no acute indication for dialysis - renal diet - pt on epogen as outpt for anemia
[2019-03-28] MEDS: ATORVASTATIN CA 10 MG TABLET (FP) PO SCH (21:42)
[2019-03-28] MEDS: MIRTAZAPINE 15 MG TABLET (FP) PO SCH (21:42)
[2019-03-29] MEDS: hydrALAZINE HCL 50 MG TABLET (FP) PO SCH ×3 (06:18→23:23)
[2019-03-29] MEDS: SODIUM BICARBONATE 650 MG TABLET PO SCH ×3 (06:18→23:23)
[2019-03-29] MEDS: FUROSEMIDE 40 MG/4 ML INJECTABLE VIAL IVPUSH SCH ×3 (06:18→16:22)
[2019-03-29] MEDS: INSULIN SLIDING SCALE (NOVOLOG) 1 VIAL SQ SCH ×4 (06:19→23:29)
[2019-03-29] MEDS: MULTIVITAMINS (DAILY MVI) TABLET (FP) PO SCH (10:20)
[2019-03-29] MEDS: ASPIRIN COATED 81 MG TABLET.EC PO SCH (10:20)
[2019-03-29] MEDS: FERROUS SO4 325 MG TABLET (FP) PO SCH (10:22)
[2019-03-29] MEDS: PANTOPRAZOLE 40 MG TABLET (FP) PO SCH (10:22)
[2019-03-29] MEDS: NIFEdipine E.R. 90 MG TABLET (FP) PO SCH (10:23)
[2019-03-29] MEDS: HEPARIN NA (PORCINE) 5,000 UNITS/ML 1ML VIAL SQ SCH ×2 (10:24→23:24)
--- NOTE | 2019-03-29 11:14 | PN ---
Progress Note (short form) - Note Progress Note: rs. Jensen has a left arm AV fistula which has required balloon assisted maturation procedures. She is admitted with fatigue and URI. Left AVF has good thrill, diameter adequate for cannulation. Imp: Left arm AVF appears ready for use as dialysis access. If any problems develop please call.
--- NOTE | 2019-03-29 12:56 | PN ---
Progress Note, Physician Chief Complaint: patient just got back from ECHO not wanting HD at this time - Current Medication List Current Medications: Active Medications Aspirin (Ecotrin -) 81 mg PO DAILY [facility] Last Admin: 03/29/19 10:20 Dose: 81 mg Atorvastatin Calcium (Lipitor -) 10 mg PO HS [facility] Last Admin: 03/28/19 21:42 Dose: 10 mg Ferrous Sulfate (Feosol -) 325 mg PO DAILY [facility] Last Admin: 03/29/19 10:22 Dose: 325 mg Furosemide (Lasix Injection -) 40 mg IVPUSH BID@0600,1400 [facility] Last Admin: 03/29/19 06:18 Dose: 40 mg Heparin Sodium (Porcine) (Heparin -) 5,000 unit SQ BID [facility] Last Admin: 03/29/19 10:24 Dose: 5,000 unit Hydralazine HCl (Apresoline -) 100 mg PO TID [facility] Last Admin: 03/29/19 06:18 Dose: 100 mg Insulin Aspart (Novolog Vial Sliding Scale -) 1 vial SQ ACHS [facility]; Protocol Last Admin: 03/29/19 12:42 Dose: Not Given Metoprolol Succinate (Toprol Xl -) 100 mg PO DAILY [facility] Last Admin: 03/29/19 10:21 Dose: 100 mg Mirtazapine (Remeron -) 45 mg PO HS [facility] Last Admin: 03/28/19 21:42 Dose: 45 mg Multivitamins/Minerals/Vitamin C (Tab-A-Vit -) 1 tab PO DAILY [facility] Last Admin: 03/29/19 10:20 Dose: 1 tab Nifedipine (Procardia Xl -) 90 mg PO DAILY [facility] Last Admin: 03/29/19 10:23 Dose: 90 mg Pantoprazole Sodium (Protonix -) 40 mg PO DAILY [facility] Last Admin: 03/29/19 10:22 Dose: 40 mg Sodium Bicarbonate (Sodium Bicarbonate -) 650 mg PO TID [facility] Last Admin: 03/29/19 06:18 Dose: 650 mg - Objective Vital Signs: Vital Signs Temperature 98.6 F 03/28/19 21:35 Pulse Rate 70 03/29/19 05:30 Respiratory Rate 20 03/29/19 05:30 Blood Pressure 175/86 H 03/29/19 05:30 O2 Sat by Pulse Oximetry (%) 96 03/28/19 22:00 Constitutional: Yes: Moderate Distress Cardiovascular: Yes: Regular Rate and Rhythm, S1, S2 Respiratory: Yes: Diminished Gastrointestinal: Yes: Normal Bowel Sounds, Soft Musculoskeletal: Yes: Other (left arm fistula with thrill and bruit) Neurological: Yes: Alert Labs: CBC, BMP 03/28/19 05:30 03/28/19 05:30 Problem List - Problems (1) CKD (chronic kidney disease) Assessment/Plan: does not want H iv lasix bid Code(s): N18.9 - CHRONIC KIDNEY DISEASE, UNSPECIFIED Qualifiers: Chronic kidney disease stage: unspecified stage Qualified Code(s): N18.9 - Chronic kidney disease, unspecified (2) Acute exacerbation of CHF (congestive heart failure) Assessment/Plan: iv lasix bid echo pending does not want HD Code(s): I50.9 - HEART FAILURE, UNSPECIFIED Assessment/Plan sherrie dc home after Echo report is done
[2019-03-29] MEDS ORDERED: EPOETIN ALFA 10,000 UNIT/1 ML VIAL SQ ONE (14:25)
--- NOTE | 2019-03-29 14:25 | PN ---
Progress Note, Physician History of Present Illness: Pt seen and examined at bedside. She is awake and appears comfortable. She does not want to start HD. Her son is at bedside. - Current Medication List Current Medications: Active Medications Aspirin (Ecotrin -) 81 mg PO DAILY [facility] Last Admin: 03/29/19 10:20 Dose: 81 mg Atorvastatin Calcium (Lipitor -) 10 mg PO HS [facility] Last Admin: 03/28/19 21:42 Dose: 10 mg Ferrous Sulfate (Feosol -) 325 mg PO DAILY [facility] Last Admin: 03/29/19 10:22 Dose: 325 mg Furosemide (Lasix Injection -) 40 mg IVPUSH BID@0600,1400 [facility] Last Admin: 03/29/19 13:55 Dose: 40 mg Heparin Sodium (Porcine) (Heparin -) 5,000 unit SQ BID [facility] Last Admin: 03/29/19 10:24 Dose: 5,000 unit Hydralazine HCl (Apresoline -) 100 mg PO TID [facility] Last Admin: 03/29/19 13:55 Dose: 100 mg Insulin Aspart (Novolog Vial Sliding Scale -) 1 vial SQ ACHS [facility]; Protocol Last Admin: 03/29/19 12:42 Dose: Not Given Metoprolol Succinate (Toprol Xl -) 100 mg PO DAILY [facility] Last Admin: 03/29/19 10:21 Dose: 100 mg Mirtazapine (Remeron -) 45 mg PO HS [facility] Last Admin: 03/28/19 21:42 Dose: 45 mg Multivitamins/Minerals/Vitamin C (Tab-A-Vit -) 1 tab PO DAILY [facility] Last Admin: 03/29/19 10:20 Dose: 1 tab Nifedipine (Procardia Xl -) 90 mg PO DAILY [facility] Last Admin: 03/29/19 10:23 Dose: 90 mg Pantoprazole Sodium (Protonix -) 40 mg PO DAILY [facility] Last Admin: 03/29/19 10:22 Dose: 40 mg Sodium Bicarbonate (Sodium Bicarbonate -) 650 mg PO TID [facility] Last Admin: 03/29/19 13:55 Dose: 650 mg - Objective Vital Signs: Vital Signs Temperature 98.7 F 03/29/19 14:11 Pulse Rate 74 03/29/19 14:11 Respiratory Rate 22 H 03/29/19 14:11 Blood Pressure 168/78 03/29/19 14:11 O2 Sat by Pulse Oximetry (%) 96 03/28/19 22:00 Constitutional: Yes: Calm Eyes: Yes: Conjunctiva Clear HENT: Yes: Atraumatic Neck: Yes: Supple Cardiovascular: Yes: S1, S2 Respiratory: Yes: CTA Bilaterally Gastrointestinal: Yes: Normal Bowel Sounds, Soft Genitourinary: Yes: WNL Edema: Yes Edema: LLE: 1+, RLE: 1+ Neurological: Yes: Oriented Psychiatric: Yes: Oriented Labs: CBC, BMP 03/28/19 05:30 03/28/19 05:30 Problem List - Problems (1) Cough Code(s): R05 - COUGH (2) CKD (chronic kidney disease) Code(s): N18.9 - CHRONIC KIDNEY DISEASE, UNSPECIFIED Qualifiers: Chronic kidney disease stage: unspecified stage Qualified Code(s): N18.9 - Chronic kidney disease, unspecified Assessment/Plan Current Medications Generic Name Dose Route Start Last Admin Trade Name Freq PRN Reason Stop Dose Admin Aspirin 81 mg 03/28/19 10:00 03/29/19 10:20 Ecotrin - PO 81 mg DAILY [facility] Administration Atorvastatin Calcium 10 mg 03/27/19 22:00 03/28/19 21:42 Lipitor - PO 10 mg HS ASHELY Administration Ferrous Sulfate 325 mg 03/28/19 10:00 03/29/19 10:22 Feosol - PO 325 mg DAILY [facility] Administration Furosemide 40 mg 03/28/19 06:00 03/29/19 13:55 Lasix Injection - IVPUSH 40 mg BID@0600,1400 ASHE[facility] Administration Heparin Sodium (Porcine) 5,000 unit 03/27/19 22:00 03/29/19 10:24 Heparin - SQ 5,000 unit BID [facility] Administration Hydralazine HCl 100 mg 03/27/19 22:00 03/29/19 13:55 Apresoline - PO 100 mg TID ASHELY Administration Insulin Aspart 1 vial 03/27/19 22:00 03/29/19 12:42 Novolog Vial Sliding Scale - SQ Not Given ACHS [facility] Protocol Metoprolol Succinate 100 mg 03/28/19 10:00 03/29/19 10:21 Toprol Xl - PO 100 mg DAILY [facility] Administration Mirtazapine 45 mg 03/27/19 22:00 03/28/19 21:42 Remeron - PO 45 mg HS [facility] Administration Multivitamins/Minerals/Vitamin C 1 tab 03/28/19 10:00 03/29/19 10:20 Tab-A-Vit - PO 1 tab DAILY [facility] Administration Nifedipine 90 mg 03/28/19 10:00 03/29/19 10:23 Procardia Xl - PO 90 mg DAILY [facility] Administration Pantoprazole Sodium 40 mg 03/28/19 10:00 03/29/19 10:22 Protonix - PO 40 mg DAILY [facility] Administration Sodium Bicarbonate 650 mg 03/27/19 22:00 03/29/19 13:55 Sodium Bicarbonate - PO 650 mg TID ASHE[facility] Administration Impression 1. CKD 2. URI 3. DM 4. HTN 5. gerd 6. anemia Plan - pt refusing hd at this time - fistula ready for use, vascular input appreciated - I told pt and son that I recommend HD - will need close outpt follow up - renal diet - pt on epogen as outpt for anemia - will give an epo dose
[2019-03-29] MEDS ORDERED: PT OWN MED DRAWER 7, Y5N ONE (15:50)
--- NOTE | 2019-03-29 16:06 | ECHO ---
Name: SIDDHARTH LUJAN TAVARES Exam:Adult Echocardiogram Study Date: 03/29/2019 11:41 AM Age: 74 yrs Reason For Study: CHF Height: 67 in Weight: 114 lb BSA: 1.6 m2 MMode/2D Measurements & Calculations IVSd: 0.79 cm Ao root diam: 2.7 cm LVIDd: 4.0 cm LA dimension: 4.0 cm LVIDs: 2.9 cm ACS: 1.9 cm LVPWd: 1.6 cm EDV(Teich): 69.6 ml LVOT diam: 2.0 cm ESV(Teich): 31.5 ml RV S Timbo: 14.2 cm/sec Doppler Measurements & Calculations MV E max timbo: 127.3 cm/sec Ao V2 max: 130.9 cm/sec MV A max timbo: 111.1 cm/sec Ao max P.9 mmHg MV E/A: 1.1 Ao V2 mean: 86.6 cm/sec MV dec time: 0.11 sec Ao mean P.3 mmHg Ao V2 VTI: 27.8 cm DHRUV(I,D): 2.8 cm2 AI P1/2t: 285.4 msec DHRUV(V,D): 2.6 cm2 AI max timbo: 381.6 cm/sec LV V1 max P.2 mmHg AI max P.2 mmHg LV V1 mean P.6 mmHg AI dec slope: 391.5 cm/sec2 LV V1 max: 113.5 cm/sec LV V1 mean: 75.6 cm/sec LV V1 VTI: 25.6 cm MR max timbo: 547.4 cm/sec SV(LVOT): 77.8 ml MR max P.6 mmHg TR max timbo: 364.5 cm/sec PA V2 max: 58.2 cm/sec TR max P.1 mmHg PA max P.4 mmHg PI end-d timbo: 181.4 cm/sec Med Peak E' Timbo: 8.7 cm/sec Med E/e': 14.7 Lat Peak E' Timbo: 10.9 cm/sec Lat E/e': 11.7 Procedure A complete two-dimensional transthoracic echocardiogram was performed (2D, M-mode, Doppler and color flow Doppler). Left Ventricle The left ventricle is normal in size. Left ventricular systolic function is normal. Ejection Fraction = 55- 60%. No regional wall motion abnormalities noted. Right Ventricle The right ventricle is normal size. The right ventricular systolic function is normal. RV systolic TD I is 14 cm/s. Atria The left atrial size is normal. Right atrial size is normal. Mitral Valve There is mild mitral valve thickening. There is moderate mitral regurgitation. Tricuspid Valve The tricuspid valve is normal in structure and function. There is moderate tricuspid regurgitation. P ulmonary artery systolic pressure is at least 64 mmHg if RA pressure is assumed 3 mmHg. Aortic Valve There is mild aortic sclerosis.;. No aortic regurgitation is present. Pulmonic Valve The pulmonic valve is not well visualized. Mild to moderate pulmonic valvular regurgitation. Great Vessels The aortic root is normal size. Pericardium/Pleura Small pericardial effusion (<1cm). Interpretation Summary The left ventricle is normal in size. Left ventricular systolic function is normal. No regional wall motion abnormalities noted. Ejection Fraction = 55-60%. The right ventricular systolic function is normal. The left atrial size is normal. Right atrial size is normal. There is mild mitral valve thickening. There is moderate mitral regurgitation. There is moderate tricuspid regurgitation. Pulmonary artery systolic pressure is at least 64 mmHg if RA pressure is assumed 3 mmHg There is mild aortic sclerosis. No aortic regurgitation is present. Mild to moderate pulmonic valvular regurgitation. Small pericardial effusion (<1cm) Valentin Pineda MD 03/29/2019 04:06 PM
[2019-03-29] MEDS: ATORVASTATIN CA 10 MG TABLET (FP) PO SCH (23:23)
[2019-03-29] MEDS: MIRTAZAPINE 15 MG TABLET (FP) PO SCH (23:23)
[2019-03-30] MEDS: hydrALAZINE HCL 50 MG TABLET (FP) PO SCH ×3 (04:59→22:08)
[2019-03-30] MEDS: SODIUM BICARBONATE 650 MG TABLET PO SCH ×2 (04:59→13:46)
[2019-03-30] MEDS: FUROSEMIDE 40 MG/4 ML INJECTABLE VIAL IVPUSH SCH ×2 (05:00→13:42)
[2019-03-30] MEDS: INSULIN SLIDING SCALE (NOVOLOG) 1 VIAL SQ SCH ×4 (07:09→22:08)
--- NOTE | 2019-03-30 09:11 | PN ---
Progress Note, Physician - Current Medication List Current Medications: Active Medications Aspirin (Ecotrin -) 81 mg PO DAILY [facility] Last Admin: 03/29/19 10:20 Dose: 81 mg Atorvastatin Calcium (Lipitor -) 10 mg PO HS [facility] Last Admin: 03/29/19 23:23 Dose: 10 mg Ferrous Sulfate (Feosol -) 325 mg PO DAILY [facility] Last Admin: 03/29/19 10:22 Dose: 325 mg Furosemide (Lasix Injection -) 40 mg IVPUSH BID@0600,1400 [facility] Last Admin: 03/30/19 05:00 Dose: 40 mg Heparin Sodium (Porcine) (Heparin -) 5,000 unit SQ BID [facility] Last Admin: 03/29/19 23:24 Dose: 5,000 unit Hydralazine HCl (Apresoline -) 100 mg PO TID [facility] Last Admin: 03/30/19 04:59 Dose: 100 mg Insulin Aspart (Novolog Vial Sliding Scale -) 1 vial SQ [facility]; Protocol Last Admin: 03/30/19 07:09 Dose: Not Given Metoprolol Succinate (Toprol Xl -) 100 mg PO DAILY [facility] Last Admin: 03/29/19 10:21 Dose: 100 mg Mirtazapine (Remeron -) 45 mg PO HS [facility] Last Admin: 03/29/19 23:23 Dose: 45 mg Multivitamins/Minerals/Vitamin C (Tab-A-Vit -) 1 tab PO DAILY [facility] Last Admin: 03/29/19 10:20 Dose: 1 tab Nifedipine (Procardia Xl -) 90 mg PO DAILY [facility] Last Admin: 03/29/19 10:23 Dose: 90 mg Pantoprazole Sodium (Protonix -) 40 mg PO DAILY [facility] Last Admin: 03/29/19 10:22 Dose: 40 mg Sodium Bicarbonate (Sodium Bicarbonate -) 650 mg PO TID [facility] Last Admin: 03/30/19 04:59 Dose: 650 mg - Objective Vital Signs: Vital Signs Temperature 98.9 F 03/30/19 06:00 Pulse Rate 70 03/30/19 07:09 Respiratory Rate 18 03/30/19 07:09 Blood Pressure 182/79 H 03/30/19 07:09 O2 Sat by Pulse Oximetry (%) 95 03/29/19 21:00 Cardiovascular: Yes: S1, S2 Respiratory: Yes: Regular, CTA Bilaterally Gastrointestinal: Yes: Normal Bowel Sounds, Soft Labs: CBC, BMP 12/15/19 05:30 03/28/19 05:30 Problem List - Problems (1) Acute exacerbation of CHF (congestive heart failure) Assessment/Plan: -fio2 to keep O2 >94% -IV lasix 40mg Q12hrs -Cardio Consult -Echo 08/30 normal LVEF EF 65% -daily weights -strict I/O -will need dialysis Code(s): I50.9 - HEART FAILURE, UNSPECIFIED (2) CKD (chronic kidney disease) Assessment/Plan: CKD stage 5 -LUE fistula recently placed-c -FOR HD--AGREES -c/w sodium bicarb Code(s): N18.9 - CHRONIC KIDNEY DISEASE, UNSPECIFIED Qualifiers: Chronic kidney disease stage: unspecified stage Qualified Code(s): N18.9 - Chronic kidney disease, unspecified (3) Diabetes mellitus Assessment/Plan: -ISC -POC AC/HS -diabetic diet Code(s): E11.9 - TYPE 2 DIABETES MELLITUS WITHOUT COMPLICATIONS (4) HTN (hypertension) Assessment/Plan: HIGH TODAY MEDS NOTED AND DISCUSSED WITH DR STROUD Code(s): I10 - ESSENTIAL (PRIMARY) HYPERTENSION
[2019-03-30] MEDS: ASPIRIN COATED 81 MG TABLET.EC PO SCH (10:28)
[2019-03-30] MEDS: HEPARIN NA (PORCINE) 5,000 UNITS/ML 1ML VIAL SQ SCH ×2 (10:28→22:08)
[2019-03-30] MEDS: FERROUS SO4 325 MG TABLET (FP) PO SCH (10:52)
[2019-03-30] MEDS: PANTOPRAZOLE 40 MG TABLET (FP) PO SCH (10:52)
[2019-03-30] MEDS: MULTIVITAMINS (DAILY MVI) TABLET (FP) PO SCH (10:52)
[2019-03-30] MEDS: NIFEdipine E.R. 90 MG TABLET (FP) PO SCH (12:22)
[2019-03-30] MEDS ORDERED: SODIUM CHLORIDE 250 ML IV PRN (13:21)
--- NOTE | 2019-03-30 13:21 | PN ---
Progress Note, Physician History of Present Illness: Pt seen and examined at bedside. She is awake and alert. She complains of poor appetite. She complains of lower ext edema. - Current Medication List Current Medications: Active Medications Aspirin (Ecotrin -) 81 mg PO DAILY [facility] Last Admin: 03/30/19 10:28 Dose: Not Given Atorvastatin Calcium (Lipitor -) 10 mg PO HS [facility] Last Admin: 03/29/19 23:23 Dose: 10 mg Ferrous Sulfate (Feosol -) 325 mg PO DAILY [facility] Last Admin: 03/30/19 10:52 Dose: 325 mg Furosemide (Lasix Injection -) 40 mg IVPUSH BID@0600,1400 [facility] Last Admin: 03/30/19 05:00 Dose: 40 mg Heparin Sodium (Porcine) (Heparin -) 5,000 unit SQ BID [facility] Last Admin: 03/30/19 10:28 Dose: Not Given Hydralazine HCl (Apresoline -) 100 mg PO TID [facility] Last Admin: 03/30/19 04:59 Dose: 100 mg Insulin Aspart (Novolog Vial Sliding Scale -) 1 vial SQ ACHS [facility]; Protocol Last Admin: 03/30/19 11:39 Dose: Not Given Metoprolol Succinate (Toprol Xl -) 100 mg PO DAILY [facility] Last Admin: 03/30/19 12:22 Dose: 100 mg Mirtazapine (Remeron -) 45 mg PO HS [facility] Last Admin: 03/29/19 23:23 Dose: 45 mg Multivitamins/Minerals/Vitamin C (Tab-A-Vit -) 1 tab PO DAILY [facility] Last Admin: 03/30/19 10:52 Dose: 1 tab Nifedipine (Procardia Xl -) 90 mg PO DAILY [facility] Last Admin: 03/30/19 12:22 Dose: 90 mg Pantoprazole Sodium (Protonix -) 40 mg PO DAILY [facility] Last Admin: 03/30/19 10:52 Dose: 40 mg Sodium Bicarbonate (Sodium Bicarbonate -) 650 mg PO TID [facility] Last Admin: 03/30/19 04:59 Dose: 650 mg - Objective Vital Signs: Vital Signs Temperature 98.1 F 03/30/19 09:00 Pulse Rate 67 03/30/19 11:01 Respiratory Rate 18 03/30/19 09:00 Blood Pressure 192/93 H 03/30/19 11:01 O2 Sat by Pulse Oximetry (%) 95 03/29/19 21:00 Constitutional: Yes: Calm Eyes: Yes: Conjunctiva Clear HENT: Yes: Atraumatic Neck: Yes: Supple Cardiovascular: Yes: S1, S2 Respiratory: Yes: CTA Bilaterally Gastrointestinal: Yes: Soft Musculoskeletal: Yes: WNL Edema: Yes Edema: LLE: 2+, RLE: 2+ Neurological: Yes: Oriented Psychiatric: Yes: Oriented Labs: CBC, BMP 03/28/19 05:30 03/28/19 05:30 Problem List - Problems (1) Cough Code(s): R05 - COUGH (2) CKD (chronic kidney disease) Code(s): N18.9 - CHRONIC KIDNEY DISEASE, UNSPECIFIED Qualifiers: Chronic kidney disease stage: unspecified stage Qualified Code(s): N18.9 - Chronic kidney disease, unspecified Assessment/Plan Current Medications Generic Name Dose Route Start Last Admin Trade Name Freq PRN Reason Stop Dose Admin Aspirin 81 mg 03/28/19 10:00 03/30/19 10:28 Ecotrin - PO Not Given DAILY [facility] Atorvastatin Calcium 10 mg 03/27/19 22:00 03/29/19 23:23 Lipitor - PO 10 mg HS [facility]HELY Administration Ferrous Sulfate 325 mg 03/28/19 10:00 03/30/19 10:52 Feosol - PO 325 mg DAILY [facility] Administration Furosemide 40 mg 03/28/19 06:00 03/30/19 05:00 Lasix Injection - IVPUSH 40 mg BID@0600,1400 [facility] Administration Heparin Sodium (Porcine) 5,000 unit 03/27/19 22:00 03/30/19 10:28 Heparin - SQ Not Given BID ASHELY Hydralazine HCl 100 mg 03/27/19 22:00 03/30/19 04:59 Apresoline - PO 100 mg TID [facility]HE[facility] Administration Insulin Aspart 1 vial 03/27/19 22:00 03/30/19 11:39 Novolog Vial Sliding Scale - SQ Not Given ACHS [facility] Protocol Metoprolol Succinate 100 mg 03/28/19 10:00 03/30/19 12:22 Toprol Xl - PO 100 mg DAILY [facility] Administration Mirtazapine 45 mg 03/27/19 22:00 03/29/19 23:23 Remeron - PO 45 mg HS [facility] Administration Multivitamins/Minerals/Vitamin C 1 tab 03/28/19 10:00 03/30/19 10:52 Tab-A-Vit - PO 1 tab DAILY [facility] Administration Nifedipine 90 mg 03/28/19 10:00 03/30/19 12:22 Procardia Xl - PO 90 mg DAILY [facility] Administration Pantoprazole Sodium 40 mg 03/28/19 10:00 03/30/19 10:52 Protonix - PO 40 mg DAILY [facility] Administration Sodium Bicarbonate 650 mg 03/27/19 22:00 03/30/19 04:59 Sodium Bicarbonate - PO 650 mg TID [facility] Administration Impression 1. CKD 2. URI 3. DM 4. HTN 5. gerd 6. anemia 7. ESRD Plan - pt agrees to HD today - will start - can d/c po bicarb - called and discussed with her son Omkar, family in agreement - renal diet - will give an epo dose
[2019-03-30] MEDS: ACETAMINOPHEN 325 MG TABLET (FP) PO PRN ×2 (14:49→22:06)
[2019-03-30] MEDS: guaiFENesin 200 MG/10 ML 10 ML UNIT-DOSE CUPS PO PRN (14:50)
[2019-03-30] MEDS: MIRTAZAPINE 15 MG TABLET (FP) PO SCH (22:06)
[2019-03-30] MEDS: ATORVASTATIN CA 10 MG TABLET (FP) PO SCH (22:08)
[2019-03-31] MEDS: FUROSEMIDE 40 MG/4 ML INJECTABLE VIAL IVPUSH SCH ×2 (05:42→13:33)
[2019-03-31] MEDS: hydrALAZINE HCL 50 MG TABLET (FP) PO SCH ×3 (05:44→22:33)
[2019-03-31] MEDS: ACETAMINOPHEN 325 MG TABLET (FP) PO PRN ×2 (05:56→13:33)
[2019-03-31] MEDS: INSULIN SLIDING SCALE (NOVOLOG) 1 VIAL SQ SCH ×4 (07:18→22:43)
[2019-03-31] MEDS: HEPARIN NA (PORCINE) 5,000 UNITS/ML 1ML VIAL SQ SCH ×2 (09:36→22:33)
[2019-03-31] MEDS: NIFEdipine E.R. 90 MG TABLET (FP) PO SCH (09:36)
[2019-03-31] MEDS: ASPIRIN COATED 81 MG TABLET.EC PO SCH (09:36)
[2019-03-31] MEDS: MULTIVITAMINS (DAILY MVI) TABLET (FP) PO SCH (09:36)
[2019-03-31] MEDS: FERROUS SO4 325 MG TABLET (FP) PO SCH (09:36)
[2019-03-31] MEDS: PANTOPRAZOLE 40 MG TABLET (FP) PO SCH (09:36)
--- NOTE | 2019-03-31 09:54 | DS ---
Physical Examination Vital Signs: Vital Signs Temperature 98.2 F 03/31/19 08:25 Pulse Rate 65 03/31/19 08:25 Respiratory Rate 17 03/31/19 08:25 Blood Pressure 177/65 H 03/31/19 08:25 O2 Sat by Pulse Oximetry (%) 97 03/30/19 21:00 Cardiovascular: Yes: S1, S2 Respiratory: Yes: Regular, CTA Bilaterally Gastrointestinal: Yes: Normal Bowel Sounds Labs: CBC, BMP 03/28/19 05:30 03/28/19 05:30 Discharge Summary Problems reviewed: Yes Reason For Visit: ACUTE ON CHRONIC CONGESTIVE HEART FAILURE Current Active Problems Cough (Acute) Hospital Course: - Problems (1) Acute exacerbation of CHF (congestive heart failure) Assessment/Plan: -fio2 to keep O2 >94% -IV lasix 40mg Q12hrs -Cardio Consult -Echo 08/30 normal LVEF EF 65% -daily weights -strict I/O -will need dialysis Code(s): I50.9 - HEART FAILURE, UNSPECIFIED (2) CKD (chronic kidney disease) Assessment/Plan: CKD stage 5 -LUE fistula recently placed-c -s/p HD--AGREES -c/w sodium bicarb Code(s): N18.9 - CHRONIC KIDNEY DISEASE, UNSPECIFIED Qualifiers: Chronic kidney disease stage: unspecified stage Qualified Code(s): N18.9 - Chronic kidney disease, unspecified (3) Diabetes mellitus Assessment/Plan: -ISC -POC AC/HS -diabetic diet Code(s): E11.9 - TYPE 2 DIABETES MELLITUS WITHOUT COMPLICATIONS (4) HTN (hypertension) Assessment/Plan: improved TODAY MEDS NOTED AND DISCUSSED WITH DR STROUD Code(s): I10 - ESSENTIAL (PRIMARY) HYPERTENSION dc planning Condition: Improved - Instructions Diet, Activity, Other Instructions: Dialysis per renal Referrals: Matthew Dye [Primary Care Provider] - 1 Week Disposition: HOME - Home Medications Comprehensive Discharge Medication List: Ambulatory Orders Mirtazapine 45 mg PO HS 08/14/18 Omeprazole 40 mg PO DAILY 08/14/18 Simvastatin 20 mg PO DAILY 08/14/18 Linagliptin [Tradjenta] 5 mg PO DAILY 09/05/18 Ferrous Sulfate [Feosol] 325 mg PO DAILY #30 tab 09/10/18 Aspirin Coated [Ecotrin -] 81 mg PO DAILY 10/23/18 Metoprolol Succinate [Toprol XL -] 100 mg PO DAILY 01/15/19 Nifedipine ER [Procardia XL -] 90 mg PO DAILY 01/15/19 Furosemide [Lasix -] 40 mg PO DAILY 02/01/19 Sodium Bicarbonate - 650 mg PO TID 02/01/19 hydrALAZINE HCL [Apresoline -] 100 mg PO TID 02/01/19 Cyanocobalamin Vit B-12 Inj. [Vitamin B12 Injection -] 1,000 mcg IJ DAILY Multivitamin [One-Daily Multi-Vitamin] 1 each PO DAILY 02/15/19
[2019-03-31] MEDS ORDERED: INSULIN (NOVOLOG) ASPART 100 UNITS/ML 10ML VIAL ONE (10:17)
[2019-03-31 11:09] LABS: CALCIUM 8.4 mg/dL (8.5-10.1); CREATININE 4.8 mg/dL (0.55-1.3); POTASSIUM 4.7 mmol/L (3.5-5.1)
[2019-03-31] MEDS: guaiFENesin 200 MG/10 ML 10 ML UNIT-DOSE CUPS PO PRN ×2 (11:45→22:37)
[2019-03-31] MEDS ORDERED: SODIUM CHLORIDE 250 ML IV PRN (13:03)
--- NOTE | 2019-03-31 13:03 | PN ---
Progress Note, Physician History of Present Illness: Pt seen and examined at bedside. SHe tolerated HD yesterday. - Current Medication List Current Medications: Active Medications Acetaminophen (Tylenol -) 650 mg PO Q6H PRN PRN Reason: PAIN 3-10 Last Admin: 03/31/19 05:56 Dose: 650 mg Aspirin (Ecotrin -) 81 mg PO DAILY [facility] Last Admin: 03/31/19 09:36 Dose: 81 mg Atorvastatin Calcium (Lipitor -) 10 mg PO HS [facility] Last Admin: 03/30/19 22:08 Dose: 10 mg Ferrous Sulfate (Feosol -) 325 mg PO DAILY [facility] Last Admin: 03/31/19 09:36 Dose: 325 mg Furosemide (Lasix Injection -) 40 mg IVPUSH BID@0600,1400 [facility] Last Admin: 03/31/19 05:42 Dose: 40 mg Guaifenesin (Robitussin -) 10 ml PO Q8H PRN PRN Reason: COUGH Last Admin: 03/31/19 11:45 Dose: 10 ml Heparin Sodium (Porcine) (Heparin -) 5,000 unit SQ BID [facility] Last Admin: 03/31/19 09:36 Dose: 5,000 unit Hydralazine HCl (Apresoline -) 100 mg PO TID [facility] Last Admin: 03/31/19 05:44 Dose: 100 mg Insulin Aspart (Novolog Vial Sliding Scale -) 1 vial SQ ACHS [facility]; Protocol Last Admin: 03/31/19 11:47 Dose: Not Given Metoprolol Succinate (Toprol Xl -) 100 mg PO DAILY [facility] Last Admin: 03/31/19 09:36 Dose: 100 mg Mirtazapine (Remeron -) 45 mg PO HS [facility] Last Admin: 03/30/19 22:06 Dose: 45 mg Multivitamins/Minerals/Vitamin C (Tab-A-Vit -) 1 tab PO DAILY [facility] Last Admin: 03/31/19 09:36 Dose: 1 tab Nifedipine (Procardia Xl -) 90 mg PO DAILY [facility] Last Admin: 03/31/19 09:36 Dose: 90 mg Pantoprazole Sodium (Protonix -) 40 mg PO DAILY [facility] Last Admin: 03/31/19 09:36 Dose: 40 mg - Objective Vital Signs: Vital Signs Temperature 98.2 F 03/31/19 08:25 Pulse Rate 65 03/31/19 08:25 Respiratory Rate 17 03/31/19 08:25 Blood Pressure 177/65 H 03/31/19 08:25 O2 Sat by Pulse Oximetry (%) 97 03/31/19 09:25 Constitutional: Yes: Calm Eyes: Yes: Conjunctiva Clear HENT: Yes: Atraumatic Neck: Yes: Supple Cardiovascular: Yes: S1, S2 Respiratory: Yes: CTA Bilaterally Gastrointestinal: Yes: Soft Genitourinary: Yes: WNL Musculoskeletal: Yes: WNL Edema: Yes Edema: LLE: 1+, RLE: 1+ Neurological: Yes: Oriented Psychiatric: Yes: Oriented Labs: CBC, BMP 03/28/19 05:30 03/31/19 10:03 Problem List - Problems (1) Cough Code(s): R05 - COUGH (2) CKD (chronic kidney disease) Code(s): N18.9 - CHRONIC KIDNEY DISEASE, UNSPECIFIED Qualifiers: Chronic kidney disease stage: unspecified stage Qualified Code(s): N18.9 - Chronic kidney disease, unspecified Assessment/Plan Current Medications Generic Name Dose Route Start Last Admin Trade Name Freq PRN Reason Stop Dose Admin Acetaminophen 650 mg 03/30/19 14:34 03/31/19 05:56 Tylenol - PO 650 mg Q6H PRN Administration PAIN 3-10 Aspirin 81 mg 03/28/19 10:00 03/31/19 09:36 Ecotrin - PO 81 mg DAILY [facility] Administration Atorvastatin Calcium 10 mg 03/27/19 22:00 03/30/19 22:08 Lipitor - PO 10 mg HS [facility] Administration Ferrous Sulfate 325 mg 03/28/19 10:00 03/31/19 09:36 Feosol - PO 325 mg DAILY [facility] Administration Furosemide 40 mg 03/28/19 06:00 03/31/19 05:42 Lasix Injection - IVPUSH 40 mg BID@0600,1400 [facility] Administration Guaifenesin 10 ml 03/30/19 14:34 03/31/19 11:45 Robitussin - PO 10 ml Q8H PRN Administration COUGH Heparin Sodium (Porcine) 5,000 unit 03/27/19 22:00 03/31/19 09:36 Heparin - SQ 5,000 unit BID [facility] Administration Hydralazine HCl 100 mg 03/27/19 22:00 03/31/19 05:44 Apresoline - PO 100 mg TID [facility] Administration Insulin Aspart 1 vial 03/27/19 22:00 03/31/19 11:47 Novolog Vial Sliding Scale - SQ Not Given ACHS [facility] Protocol Metoprolol Succinate 100 mg 03/28/19 10:00 03/31/19 09:36 Toprol Xl - PO 100 mg DAILY [facility] Administration Mirtazapine 45 mg 03/27/19 22:00 03/30/19 22:06 Remeron - PO 45 mg HS [facility] Administration Multivitamins/Minerals/Vitamin C 1 tab 03/28/19 10:00 03/31/19 09:36 Tab-A-Vit - PO 1 tab DAILY [facility] Administration Nifedipine 90 mg 03/28/19 10:00 03/31/19 09:36 Procardia Xl - PO 90 mg DAILY [facility] Administration Pantoprazole Sodium 40 mg 03/28/19 10:00 03/31/19 09:36 Protonix - PO 40 mg DAILY [facility] Administration Impression 1. CKD 2. URI 3. DM 4. HTN 5. gerd 6. anemia 7. ESRD Plan - pt tolerated HD yesterday - next HD tomorrow - pending placement in outpt center - follow hep panel - renal diet - will give an epo dose
[2019-03-31] MEDS ORDERED: traMADol HCL 50 MG TABLET PO PRN (13:33)
[2019-03-31] MEDS: LOSARTAN POTASSIUM 50 MG TABLET (FP) PO SCH (13:33)
--- NOTE | 2019-03-31 14:01 | CONSULT ---
Consult Consult Specialty:: PM&R Dr Peace for Dr Farley - History of Present Illness Chief Complaint: diffusely weak History of Present Illness: This is a 74 year old woman with a medical history of HTN, HLD, nephrolithisasis s/p lithotripsy/ stent placement, CKD5 s/p LUE AVF, DM, who presented to the hospital 04/27/18 with SOB and cough x4 days. She was diagnosed with CHF exacerbation for which Cardiology was consulted. Renal was consulted for CKD5, and HD was initiated. She has not been seen by PT. Physiatry is being consulted for further recommendations. - Past Medical History Cardio/Vascular: Yes: HTN, Hyperlipdemia Gastrointestinal: Yes: GERD Renal/: Yes: Renal Inusuff, Other (CKD) ...: No Endocrine: Yes: Diabetes Mellitus - Past Surgical History Past Surgical History: Yes: None - Alcohol/Substance Use Hx Alcohol Use: No History of Substance Use: reports: None - Smoking History Smoking history: Never smoked Have you smoked in the past 12 months: No Aproximately how many cigarettes per day: 0 - Social History Usual Living Arrangement: Alone (alone in elevator apartment without stairs) ADL: Independent (Independent in ADLs, ambulated with RW) History of Recent Travel: No Home Medications - Allergies Allergies/Adverse Reactions: Allergies Allergy/AdvReac Type Severity Reaction Status Date / Time No Known Allergies Allergy Verified 03/27/19 13:54 - Home Medications Home Medications: Ambulatory Orders Mirtazapine 45 mg PO HS 08/14/18 Omeprazole 40 mg PO DAILY 08/14/18 Simvastatin 20 mg PO DAILY 08/14/18 Linagliptin [Tradjenta] 5 mg PO DAILY 09/05/18 Ferrous Sulfate [Feosol] 325 mg PO DAILY #30 tab 09/10/18 Aspirin Coated [Ecotrin -] 81 mg PO DAILY 10/23/18 Metoprolol Succinate [Toprol XL -] 100 mg PO DAILY 01/15/19 Nifedipine ER [Procardia XL -] 90 mg PO DAILY 01/15/19 Furosemide [Lasix -] 40 mg PO DAILY 02/01/19 Sodium Bicarbonate - 650 mg PO TID 02/01/19 hydrALAZINE HCL [Apresoline -] 100 mg PO TID 02/01/19 Cyanocobalamin Vit B-12 Inj. [Vitamin B12 Injection -] 1,000 mcg IJ DAILY Multivitamin [One-Daily Multi-Vitamin] 1 each PO DAILY 02/15/19 Review of Systems Findings/Remarks: Denies fevers, chills, changes in vision/ hearing/ mood, CP, SOB, abdominal pain , nausea, vomiting, diarrhea, dysuria, numbness/ paresthesias. She notes cough which is minimally improving, being diffusely weak, mild constipation, and LBP from lying in bed Physical Exam Vital Signs: Vital Signs Temperature 98.8 F 03/31/19 13:25 Pulse Rate 61 03/31/19 13:25 Respiratory Rate 17 03/31/19 13:25 Blood Pressure 187/72 H 03/31/19 13:25 O2 Sat by Pulse Oximetry (%) 97 03/31/19 09:25 Musculoskeletal: Yes: Other (General: calm elderly AAF lying in bed NAD, AAO x3 ; B shoulder flexion to 120 degrees, antigravity RUE but declines MMT 2/2 pain from bloodsticks/ IVs, 4+/5 LUE/ BLE; Pinprick Intact BUE/ BLE; trace BLE pitting edema, no B calf tenderness) Labs: CBC, BMP 03/28/19 05:30 03/31/19 10:03 Assessment/Plan Impression: 1) Deficits mobility/ ADLs 2) Deconditioning 3) Gait abnormality 4) CHF exacerbation with hx HTN, HLD 5) CKD5 now on HD via LUE AVF 6) hx nephrolithisasis s/p lithotripsy/ stent placement 7) hx DM 8) Anemia 9) Underweight 10) No documented flu shot/ pneumovax Recommendations: 1) PT for stretching strengthening ROM and functional mobility, endurance 2) Falls, safety precautions 3) Cardiopulmonary precautions 4) Diabetic precautions 5) Heat LB prn 6) Skin protection: float heels, frequent turning 7) Bowel regimen: consider adding Colace up to 300mg 8) DVT ppx: on hep sc 9) Monitor CBC given anemia 10) Nutrition consult for malnourished/ underweight 11) Continue plan per primary team 12) Discharge planning: patient intends to return home with home services, she is not interested in [facility] Please reconsult Physiatry as needed.
[2019-03-31 14:05] LABS: URIC ACID 5.5 mg/dL (2.6-7.2)
--- NOTE | 2019-03-31 14:35 | PN ---
Progress Note (short form) - Note Progress Note: Pt seen and examined. In short she is a 74 year old right hand dominant female with 2 days complaints of right elbow pain with motion and stiffness. She denies any recent trauma.She did just start hemodialysis this week, the shunt is in her left upper arm. She states she has 0/10 pain when sitting still, but it increases with motion. AVSS PE Right elbow shows no signs of acute trauma, no swelling, no bruising, no erythema. No signs of infection: not hot, not red, no signs of cellulitis Right UE is NVI. No sensory deficits. W and WP Very good ROM throughout including at the wrist, hand, fingers, and thumb with no pain Full/nl forearm pronation and supination without pain Mild -to-moderate decrease in active flexion and extension of the right elbow. X-rays None done No studies done to the right elbow Imp Right elbow pain, possibly arthritic, secondarily stiff. No signs of acute injury, infection, or even inflammation. Rec She was shown how to do her own range of motion exercises. I don't think she needs ice or heat, a sling or formal P.T. She can f/u as an outpatient if needed. X-rays not needed.
[2019-03-31] MEDS: MIRTAZAPINE 15 MG TABLET (FP) PO SCH (22:32)
[2019-03-31] MEDS: ATORVASTATIN CA 10 MG TABLET (FP) PO SCH (22:32)
[2019-04-01] MEDS: FUROSEMIDE 40 MG/4 ML INJECTABLE VIAL IVPUSH SCH ×2 (05:56→14:17)
[2019-04-01] MEDS: hydrALAZINE HCL 50 MG TABLET (FP) PO SCH ×3 (05:56→21:25)
[2019-04-01] MEDS: INSULIN SLIDING SCALE (NOVOLOG) 1 VIAL SQ SCH ×4 (06:05→21:26)
--- NOTE | 2019-04-01 08:21 | DS ---
Physical Examination Vital Signs: Vital Signs Temperature 98.0 F 04/01/19 06:00 Pulse Rate 62 04/01/19 06:00 Respiratory Rate 18 04/01/19 06:00 Blood Pressure 166/62 04/01/19 06:00 O2 Sat by Pulse Oximetry (%) 98 03/31/19 21:00 Cardiovascular: Yes: S1, S2 Respiratory: Yes: Regular, CTA Bilaterally Gastrointestinal: Yes: Normal Bowel Sounds, Soft. No: Tenderness Labs: CBC, BMP 03/28/19 05:30 03/31/19 10:03 Discharge Summary Problems reviewed: Yes Reason For Visit: ACUTE ON CHRONIC CONGESTIVE HEART FAILURE Current Active Problems Cough (Acute) Hospital Course: - Problems (1) Acute exacerbation of CHF (congestive heart failure) Assessment/Plan: -fio2 to keep O2 >94% -IV lasix 40mg Q12hrs -Cardio Consult -Echo 08/30 normal LVEF EF 65% -daily weights -strict I/O -will need dialysis Code(s): I50.9 - HEART FAILURE, UNSPECIFIED (2) CKD (chronic kidney disease) Assessment/Plan: CKD stage 5 -LUE fistula recently placed-c -s/p HD--AGREES -c/w sodium bicarb Code(s): N18.9 - CHRONIC KIDNEY DISEASE, UNSPECIFIED Qualifiers: Chronic kidney disease stage: unspecified stage Qualified Code(s): N18.9 - Chronic kidney disease, unspecified (3) Diabetes mellitus Assessment/Plan: -ISC -POC AC/HS -diabetic diet Code(s): E11.9 - TYPE 2 DIABETES MELLITUS WITHOUT COMPLICATIONS (4) HTN (hypertension) Assessment/Plan: improved TODAY MEDS NOTED AND DISCUSSED WITH DR STROUD Code(s): I10 - ESSENTIAL (PRIMARY) HYPERTENSION dc planning Condition: Improved - Instructions Diet, Activity, Other Instructions: Dialysis per renal Referrals: Matthew Dye [Primary Care Provider] - 1 Week Disposition: HOME - Home Medications Comprehensive Discharge Medication List: Ambulatory Orders Mirtazapine 45 mg PO HS 08/14/18 Omeprazole 40 mg PO DAILY 08/14/18 Simvastatin 20 mg PO DAILY 08/14/18 Linagliptin [Tradjenta] 5 mg PO DAILY 09/05/18 Ferrous Sulfate [Feosol] 325 mg PO DAILY #30 tab 09/10/18 Aspirin Coated [Ecotrin -] 81 mg PO DAILY 10/23/18 Metoprolol Succinate [Toprol XL -] 100 mg PO DAILY 01/15/19 Nifedipine ER [Procardia XL -] 90 mg PO DAILY 01/15/19 Furosemide [Lasix -] 40 mg PO DAILY 02/01/19 Sodium Bicarbonate - 650 mg PO TID 02/01/19 hydrALAZINE HCL [Apresoline -] 100 mg PO TID 02/01/19 Cyanocobalamin Vit B-12 Inj. [Vitamin B12 Injection -] 1,000 mcg IJ DAILY Multivitamin [One-Daily Multi-Vitamin] 1 each PO DAILY 02/15/19
[2019-04-01 11:15] LABS: HEMATOCRIT 31.6 % (32.4-45.2); HEMOGLOBIN 10.2 GM/dL (10.7-15.3); MCHC 32.4 g/dl (32.0-36.0); MEAN CELL VOLUME 89.6 fl (80-96); MEAN PLT VOLUME 8.8 fl (7.5-11.1); PLATELET COUNT 554 K/MM3 (134-434); RBC 3.53 M/mm3 (3.60-5.2); RDW 15.8 % (11.6-15.6); WHITE BLOOD COUNT 10.3 K/mm3 (4.0-10.0)
[2019-04-01 11:40] LABS: BLOOD UREA NITROGEN 49.6 mg/dL (7-18); CALCIUM 8.2 mg/dL (8.5-10.1); CREATININE 5.3 mg/dL (0.55-1.3)
[2019-04-01] MEDS: NIFEdipine E.R. 90 MG TABLET (FP) PO SCH (14:16)
[2019-04-01] MEDS: PANTOPRAZOLE 40 MG TABLET (FP) PO SCH (14:16)
[2019-04-01] MEDS: FERROUS SO4 325 MG TABLET (FP) PO SCH (14:16)
[2019-04-01] MEDS: ASPIRIN COATED 81 MG TABLET.EC PO SCH (14:16)
[2019-04-01] MEDS: LOSARTAN POTASSIUM 50 MG TABLET (FP) PO SCH (14:17)
[2019-04-01] MEDS: MULTIVITAMINS (DAILY MVI) TABLET (FP) PO SCH (14:17)
[2019-04-01] MEDS: HEPARIN NA (PORCINE) 5,000 UNITS/ML 1ML VIAL SQ SCH ×2 (14:30→21:26)
--- NOTE | 2019-04-01 18:14 | PN ---
Progress Note, Physician History of Present Illness: Pt seen and examined at bedside. She is awake and alert. She denies shortness of breath. She tolerated HD today. - Current Medication List Current Medications: Active Medications Acetaminophen (Tylenol -) 650 mg PO Q6H PRN PRN Reason: PAIN 3-10 Last Admin: 03/31/19 13:33 Dose: 650 mg Aspirin (Ecotrin -) 81 mg PO DAILY [facility] Last Admin: 04/01/19 14:16 Dose: 81 mg Atorvastatin Calcium (Lipitor -) 10 mg PO HS [facility] Last Admin: 03/31/19 22:32 Dose: 10 mg Ferrous Sulfate (Feosol -) 325 mg PO DAILY [facility] Last Admin: 04/01/19 14:16 Dose: 325 mg Furosemide (Lasix Injection -) 40 mg IVPUSH BID@0600,1400 [facility] Last Admin: 04/01/19 14:17 Dose: 40 mg Guaifenesin (Robitussin -) 10 ml PO Q8H PRN PRN Reason: COUGH Last Admin: 03/31/19 22:37 Dose: 10 ml Heparin Sodium (Porcine) (Heparin -) 5,000 unit SQ BID [facility] Last Admin: 04/01/19 14:30 Dose: Not Given Hydralazine HCl (Apresoline -) 100 mg PO TID [facility] Last Admin: 04/01/19 14:16 Dose: 100 mg Sodium Chloride (Normal Saline -) 250 mls @ 3,000 mls/hr IV PRN PRN PRN Reason: Hypotension during Dialysis Stop: 04/01/19 13:04 Insulin Aspart (Novolog Vial Sliding Scale -) 1 vial SQ ACHS [facility]; Protocol Last Admin: 04/01/19 17:43 Dose: Not Given Losartan Potassium (Cozaar -) 50 mg PO DAILY [facility] Last Admin: 04/01/19 14:17 Dose: 50 mg Metoprolol Succinate (Toprol Xl -) 100 mg PO DAILY [facility] Last Admin: 04/01/19 14:16 Dose: 100 mg Mirtazapine (Remeron -) 45 mg PO HS [facility] Last Admin: 03/31/19 22:32 Dose: 45 mg Multivitamins/Minerals/Vitamin C (Tab-A-Vit -) 1 tab PO DAILY [facility] Last Admin: 04/01/19 14:17 Dose: 1 tab Nifedipine (Procardia Xl -) 90 mg PO DAILY [facility] Last Admin: 04/01/19 14:16 Dose: 90 mg Pantoprazole Sodium (Protonix -) 40 mg PO DAILY [facility] Last Admin: 04/01/19 14:16 Dose: 40 mg Tramadol HCl (Ultram -) 25 mg PO Q8H PRN PRN Reason: PAIN LEVEL 6-10 Last Admin: 03/31/19 22:32 Dose: 25 mg - Objective Vital Signs: Vital Signs Temperature 97.9 F 04/01/19 12:00 Pulse Rate 75 04/01/19 13:46 Respiratory Rate 18 04/01/19 13:46 Blood Pressure 178/62 H 04/01/19 13:46 O2 Sat by Pulse Oximetry (%) 98 04/01/19 09:00 Constitutional: Yes: Calm Eyes: Yes: Conjunctiva Clear HENT: Yes: Atraumatic Cardiovascular: Yes: S1, S2 Respiratory: Yes: CTA Bilaterally Gastrointestinal: Yes: Soft Musculoskeletal: Yes: WNL Extremities: Yes: WNL Edema: LLE: 1+, RLE: 1+ Neurological: Yes: Oriented Psychiatric: Yes: Oriented Labs: CBC, BMP 04/01/19 10:20 04/01/19 10:20 Problem List - Problems (1) Cough Code(s): R05 - COUGH (2) CKD (chronic kidney disease) Code(s): N18.9 - CHRONIC KIDNEY DISEASE, UNSPECIFIED Qualifiers: Chronic kidney disease stage: unspecified stage Qualified Code(s): N18.9 - Chronic kidney disease, unspecified Assessment/Plan Current Medications Generic Name Dose Route Start Last Admin Trade Name Freq PRN Reason Stop Dose Admin Acetaminophen 650 mg 03/30/19 14:34 03/31/19 13:33 Tylenol - PO 650 mg Q6H PRN Administration PAIN 3-10 Aspirin 81 mg 03/28/19 10:00 04/01/19 14:16 Ecotrin - PO 81 mg DAILY [facility] Administration Atorvastatin Calcium 10 mg 03/27/19 22:00 03/31/19 22:32 Lipitor - PO 10 mg HS [facility] Administration Ferrous Sulfate 325 mg 03/28/19 10:00 04/01/19 14:16 Feosol - PO 325 mg DAILY [facility] Administration Furosemide 40 mg 03/28/19 06:00 04/01/19 14:17 Lasix Injection - IVPUSH 40 mg BID@0600,1400 [facility] Administration Guaifenesin 10 ml 03/30/19 14:34 03/31/19 22:37 Robitussin - PO 10 ml Q8H PRN Administration COUGH Heparin Sodium (Porcine) 5,000 unit 03/27/19 22:00 04/01/19 14:30 Heparin - SQ Not Given BID [facility] Hydralazine HCl 100 mg 03/27/19 22:00 04/01/19 14:16 Apresoline - PO 100 mg TID [facility] Administration Sodium Chloride 250 mls @ 3,000 mls/hr 03/31/19 13:03 Normal Saline - IV 04/01/19 13:04 PRN PRN Hypotension during Dialysis Insulin Aspart 1 vial 03/27/19 22:00 04/01/19 17:43 Novolog Vial Sliding Scale - SQ Not Given ACHS [facility] Protocol Losartan Potassium 50 mg 03/31/19 13:15 04/01/19 14:17 Cozaar - PO 50 mg DAILY [facility] Administration Metoprolol Succinate 100 mg 03/28/19 10:00 04/01/19 14:16 Toprol Xl - PO 100 mg DAILY [facility] Administration Mirtazapine 45 mg 03/27/19 22:00 03/31/19 22:32 Remeron - PO 45 mg HS [facility] Administration Multivitamins/Minerals/Vitamin C 1 tab 03/28/19 10:00 04/01/19 14:17 Tab-A-Vit - PO 1 tab DAILY [facility] Administration Nifedipine 90 mg 03/28/19 10:00 04/01/19 14:16 Procardia Xl - PO 90 mg DAILY [facility] Administration Pantoprazole Sodium 40 mg 03/28/19 10:00 04/01/19 14:16 Protonix - PO 40 mg DAILY [facility] Administration Tramadol HCl 25 mg 03/31/19 13:33 03/31/19 22:32 Ultram - PO 25 mg Q8H PRN Administration PAIN LEVEL 6-10 Impression 1. CKD 2. URI 3. DM 4. HTN 5. gerd 6. anemia 7. ESRD Plan - HD today. pt tolerated - pending HD placement - will evaluate or HD tomorrow pending placement and discharge - follow hep panel - renal diet
[2019-04-01] MEDS: ATORVASTATIN CA 10 MG TABLET (FP) PO SCH (21:25)
[2019-04-01] MEDS: MIRTAZAPINE 15 MG TABLET (FP) PO SCH (21:26)
[2019-04-01 22:09] LABS: HEP B CORE AB, TOT Negative (Negative)
[2019-04-02] MEDS: hydrALAZINE HCL 50 MG TABLET (FP) PO SCH ×2 (05:51→15:09)
[2019-04-02] MEDS: FUROSEMIDE 40 MG/4 ML INJECTABLE VIAL IVPUSH SCH ×2 (05:51→15:09)
[2019-04-02] MEDS: INSULIN SLIDING SCALE (NOVOLOG) 1 VIAL SQ SCH ×3 (06:15→17:13)
[2019-04-02] MEDS ORDERED: INSULIN (NOVOLOG) ASPART 100 UNITS/ML 10ML VIAL ONE (07:13)
[2019-04-02] MEDS ORDERED: SODIUM CHLORIDE 250 ML IV PRN (10:20)
[2019-04-02] MEDS: ASPIRIN COATED 81 MG TABLET.EC PO SCH (10:42)
[2019-04-02] MEDS: NIFEdipine E.R. 90 MG TABLET (FP) PO SCH (10:42)
[2019-04-02] MEDS: HEPARIN NA (PORCINE) 5,000 UNITS/ML 1ML VIAL SQ SCH (10:43)
[2019-04-02] MEDS: MULTIVITAMINS (DAILY MVI) TABLET (FP) PO SCH (10:43)
[2019-04-02] MEDS: LOSARTAN POTASSIUM 50 MG TABLET (FP) PO SCH (10:43)
[2019-04-02] MEDS: FERROUS SO4 325 MG TABLET (FP) PO SCH (10:43)
--- NOTE | 2019-04-02 11:45 | PN ---
Progress Note, Physician Chief Complaint: ESRD on HD Acute on Chronic CHF exacerbation History of Present Illness: Previous notes and events reviewed awake and alert NAD pending HD today then will be discharged home denies chest pain, SOB - Current Medication List Current Medications: Active Medications Acetaminophen (Tylenol -) 650 mg PO Q6H PRN PRN Reason: PAIN 3-10 Last Admin: 03/31/19 13:33 Dose: 650 mg Aspirin (Ecotrin -) 81 mg PO DAILY [facility] Last Admin: 04/02/19 10:42 Dose: 81 mg Atorvastatin Calcium (Lipitor -) 10 mg PO HS [facility] Last Admin: 04/01/19 21:25 Dose: 10 mg Ferrous Sulfate (Feosol -) 325 mg PO DAILY [facility] Last Admin: 04/02/19 10:43 Dose: 325 mg Furosemide (Lasix Injection -) 40 mg IVPUSH BID@0600,1400 [facility] Last Admin: 04/02/19 05:51 Dose: 40 mg Guaifenesin (Robitussin -) 10 ml PO Q8H PRN PRN Reason: COUGH Last Admin: 03/31/19 22:37 Dose: 10 ml Heparin Sodium (Porcine) (Heparin -) 5,000 unit SQ BID [facility] Last Admin: 04/02/19 10:43 Dose: 5,000 unit Hydralazine HCl (Apresoline -) 100 mg PO TID [facility] Last Admin: 04/02/19 05:51 Dose: 100 mg Sodium Chloride (Normal Saline -) 250 mls @ 3,000 mls/hr IV PRN PRN PRN Reason: Hypotension during Dialysis Stop: 04/03/19 10:20 Insulin Aspart (Novolog Vial Sliding Scale -) 1 vial SQ ACHS [facility]; Protocol Last Admin: 04/02/19 06:15 Dose: Not Given Losartan Potassium (Cozaar -) 50 mg PO DAILY [facility] Last Admin: 04/02/19 10:43 Dose: 50 mg Metoprolol Succinate (Toprol Xl -) 100 mg PO DAILY [facility] Last Admin: 04/02/19 10:43 Dose: 100 mg Mirtazapine (Remeron -) 45 mg PO HS [facility] Last Admin: 04/01/19 21:26 Dose: 45 mg Multivitamins/Minerals/Vitamin C (Tab-A-Vit -) 1 tab PO DAILY [facility] Last Admin: 04/02/19 10:43 Dose: 1 tab Nifedipine (Procardia Xl -) 90 mg PO DAILY [facility] Last Admin: 04/02/19 10:42 Dose: 90 mg Pantoprazole Sodium (Protonix -) 40 mg PO DAILY [facility] Last Admin: 04/01/19 14:16 Dose: 40 mg Tramadol HCl (Ultram -) 25 mg PO Q8H PRN PRN Reason: PAIN LEVEL 6-10 Last Admin: 03/31/19 22:32 Dose: 25 mg - Objective Vital Signs: Vital Signs Temperature 98 F 04/02/19 06:00 Pulse Rate 63 04/02/19 06:00 Respiratory Rate 20 04/02/19 06:00 Blood Pressure 177/65 H 04/02/19 06:00 O2 Sat by Pulse Oximetry (%) 98 04/01/19 21:00 Constitutional: Yes: No Distress, Calm, Thin Eyes: Yes: Conjunctiva Clear HENT: Yes: Atraumatic Cardiovascular: Yes: Regular Rate and Rhythm Respiratory: Yes: Regular, CTA Bilaterally Gastrointestinal: Yes: Normal Bowel Sounds, Soft Musculoskeletal: Yes: Muscle Weakness Extremities: Yes: WNL Edema: No Neurological: Yes: Alert, Oriented Psychiatric: Yes: Alert, Oriented Labs: CBC, BMP 04/01/19 10:20 04/01/19 10:20 Problem List - Problems (1) ESRD on dialysis Assessment/Plan: -continue dialysis on scheduled days -BUN/Cr 49.6/5.3 -renal diet Code(s): N18.6 - END STAGE RENAL DISEASE; Z99.2 - DEPENDENCE ON RENAL DIALYSIS (2) Acute exacerbation of CHF (congestive heart failure) Assessment/Plan: -1L fluid restriction -Furosemide -low NA diet Code(s): I50.9 - HEART FAILURE, UNSPECIFIED (3) Diabetes mellitus Assessment/Plan: -BGM ACHS -ISS -diabetic diet Code(s): E11.9 - TYPE 2 DIABETES MELLITUS WITHOUT COMPLICATIONS (4) HTN (hypertension) Assessment/Plan: -Hydralazine, Losartan, Nifedipine -low Na diet Code(s): I10 - ESSENTIAL (PRIMARY) HYPERTENSION (5) Hyperlipidemia Assessment/Plan: -Atorvastatin Code(s): E78.5 - HYPERLIPIDEMIA, UNSPECIFIED Assessment/Plan see problem list dvt ppx
[2019-04-02] MEDS: PANTOPRAZOLE 40 MG TABLET (FP) PO SCH (15:09)
[2019-04-02 15:40] VITALS: BP 157/70; PULSE 68; TEMP 98.6
--- NOTE | 2019-04-02 16:08 | PN ---
Progress Note, Physician History of Present Illness: Pt seen and examined at bedside. SHe is tolerating HD. She denies shortness of breath. - Current Medication List Current Medications: Active Medications Acetaminophen (Tylenol -) 650 mg PO Q6H PRN PRN Reason: PAIN 3-10 Last Admin: 03/31/19 13:33 Dose: 650 mg Aspirin (Ecotrin -) 81 mg PO DAILY [facility] Last Admin: 04/02/19 10:42 Dose: 81 mg Atorvastatin Calcium (Lipitor -) 10 mg PO HS [facility] Last Admin: 04/01/19 21:25 Dose: 10 mg Ferrous Sulfate (Feosol -) 325 mg PO DAILY [facility] Last Admin: 04/02/19 10:43 Dose: 325 mg Furosemide (Lasix Injection -) 40 mg IVPUSH BID@0600,1400 [facility] Last Admin: 04/02/19 15:09 Dose: 40 mg Guaifenesin (Robitussin -) 10 ml PO Q8H PRN PRN Reason: COUGH Last Admin: 03/31/19 22:37 Dose: 10 ml Heparin Sodium (Porcine) (Heparin -) 5,000 unit SQ BID [facility] Last Admin: 04/02/19 10:43 Dose: 5,000 unit Hydralazine HCl (Apresoline -) 100 mg PO TID [facility] Last Admin: 04/02/19 15:09 Dose: 100 mg Sodium Chloride (Normal Saline -) 250 mls @ 3,000 mls/hr IV PRN PRN PRN Reason: Hypotension during Dialysis Stop: 04/03/19 10:20 Insulin Aspart (Novolog Vial Sliding Scale -) 1 vial SQ ACHS [facility]; Protocol Last Admin: 04/02/19 11:56 Dose: Not Given Losartan Potassium (Cozaar -) 50 mg PO DAILY [facility] Last Admin: 04/02/19 10:43 Dose: 50 mg Metoprolol Succinate (Toprol Xl -) 100 mg PO DAILY [facility] Last Admin: 04/02/19 10:43 Dose: 100 mg Mirtazapine (Remeron -) 45 mg PO HS [facility] Last Admin: 04/01/19 21:26 Dose: 45 mg Multivitamins/Minerals/Vitamin C (Tab-A-Vit -) 1 tab PO DAILY [facility] Last Admin: 04/02/19 10:43 Dose: 1 tab Nifedipine (Procardia Xl -) 90 mg PO DAILY [facility] Last Admin: 04/02/19 10:42 Dose: 90 mg Pantoprazole Sodium (Protonix -) 40 mg PO DAILY [facility] Last Admin: 04/02/19 15:09 Dose: 40 mg Tramadol HCl (Ultram -) 25 mg PO Q8H PRN PRN Reason: PAIN LEVEL 6-10 Last Admin: 03/31/19 22:32 Dose: 25 mg - Objective Vital Signs: Vital Signs Temperature 98.6 F 04/02/19 15:00 Pulse Rate 68 04/02/19 15:00 Respiratory Rate 18 04/02/19 15:00 Blood Pressure 157/70 04/02/19 15:00 O2 Sat by Pulse Oximetry (%) 97 04/02/19 09:00 Constitutional: Yes: Calm Eyes: Yes: Conjunctiva Clear HENT: Yes: Atraumatic Neck: Yes: Supple Cardiovascular: Yes: S1, S2 Respiratory: Yes: CTA Bilaterally Gastrointestinal: Yes: Normal Bowel Sounds, Soft Genitourinary: Yes: WNL Musculoskeletal: Yes: WNL Edema: Yes Edema: LLE: Trace, RLE: Trace Integumentary: Yes: WNL Neurological: Yes: Oriented Psychiatric: Yes: Oriented Labs: CBC, BMP 04/01/19 10:20 04/01/19 10:20 Problem List - Problems (1) Cough Code(s): R05 - COUGH (2) CKD (chronic kidney disease) Code(s): N18.9 - CHRONIC KIDNEY DISEASE, UNSPECIFIED Qualifiers: Chronic kidney disease stage: unspecified stage Qualified Code(s): N18.9 - Chronic kidney disease, unspecified Assessment/Plan Current Medications Generic Name Dose Route Start Last Admin Trade Name Freq PRN Reason Stop Dose Admin Acetaminophen 650 mg 03/30/19 14:34 03/31/19 13:33 Tylenol - PO 650 mg Q6H PRN Administration PAIN 3-10 Aspirin 81 mg 03/28/19 10:00 04/02/19 10:42 Ecotrin - PO 81 mg DAILY [facility] Administration Atorvastatin Calcium 10 mg 03/27/19 22:00 04/01/19 21:25 Lipitor - PO 10 mg HS [facility] Administration Ferrous Sulfate 325 mg 03/28/19 10:00 04/02/19 10:43 Feosol - PO 325 mg DAILY [facility] Administration Furosemide 40 mg 03/28/19 06:00 04/02/19 15:09 Lasix Injection - IVPUSH 40 mg BID@0600,1400 [facility] Administration Guaifenesin 10 ml 03/30/19 14:34 03/31/19 22:37 Robitussin - PO 10 ml Q8H PRN Administration COUGH Heparin Sodium (Porcine) 5,000 unit 03/27/19 22:00 04/02/19 10:43 Heparin - SQ 5,000 unit BID [facility] Administration Hydralazine HCl 100 mg 03/27/19 22:00 04/02/19 15:09 Apresoline - PO 100 mg TID [facility] Administration Sodium Chloride 250 mls @ 3,000 mls/hr 04/02/19 10:20 Normal Saline - IV 04/03/19 10:20 PRN PRN Hypotension during Dialysis Insulin Aspart 1 vial 03/27/19 22:00 04/02/19 11:56 Novolog Vial Sliding Scale - SQ Not Given ACHS [facility] Protocol Losartan Potassium 50 mg 03/31/19 13:15 04/02/19 10:43 Cozaar - PO 50 mg DAILY [facility] Administration Metoprolol Succinate 100 mg 03/28/19 10:00 04/02/19 10:43 Toprol Xl - PO 100 mg DAILY [facility] Administration Mirtazapine 45 mg 03/27/19 22:00 04/01/19 21:26 Remeron - PO 45 mg HS [facility] Administration Multivitamins/Minerals/Vitamin C 1 tab 03/28/19 10:00 04/02/19 10:43 Tab-A-Vit - PO 1 tab DAILY [facility] Administration Nifedipine 90 mg 03/28/19 10:00 04/02/19 10:42 Procardia Xl - PO 90 mg DAILY [facility] Administration Pantoprazole Sodium 40 mg 03/28/19 10:00 04/02/19 15:09 Protonix - PO 40 mg DAILY [facility] Administration Tramadol HCl 25 mg 03/31/19 13:33 03/31/19 22:32 Ultram - PO 25 mg Q8H PRN Administration PAIN LEVEL 6-10 Impression 1. CKD 2. URI 3. DM 4. HTN 5. gerd 6. anemia 7. ESRD Plan - HD today - pt has HD set up as outpt, she is to go to [address] [place] [address] at 7 am on Friday - pt can be discharged today - cont losartan on discharge - renal diet
[2019-04-02 16:44] VITALS: BMI 15.4
== END 2019-04-02 17:58 | disposition home or self-care (01) | DRG 292 ==
LOC: JER 13:45 → JERBED 17:37 → J5S 03-28 20:01
PROVIDERS: ADMIT Internal Medicine; ATTEND Family Medicine
DX: I13.2 Hypertensive heart and chronic kidney disease with heart failure and with stage 5 chronic kidney disease, or end stage renal disease (principal); Z68.1 Body mass index [BMI] 19.9 or less, adult; N18.5 Chronic kidney disease, stage 5; K21.9 Gastro-esophageal reflux disease without esophagitis; E78.5 Hyperlipidemia, unspecified; D64.9 Anemia, unspecified; R26.9 Unspecified abnormalities of gait and mobility; R63.6 Underweight; J06.9 Acute upper respiratory infection, unspecified; I34.0 Nonrheumatic mitral (valve) insufficiency; E11.22 Type 2 diabetes mellitus with diabetic chronic kidney disease; I50.9 Heart failure, unspecified; Z87.442 Personal history of urinary calculi
CPT/HCPCS: 36415; 71046-TC-FY; 80048; 80053; 80074; 82962; 83735; 83880; 84100; 84484; 84550; 85025; 85027; 86317; 86704; 86706; 86707; 86708; 86709; 86803; 87340; 87804; 93005; 93010; 93306-TC; 97116-GP; 97161-GP; 99283-25; J0885; J1644

== ENCOUNTER 2019-05-11 12:03 | Emergency (ER) | payer MEDICARE, OTHER ==
[2019-05-11 12:40] VITALS: TEMP 98.4; BMI 17.9
[2019-05-11] MEDS ORDERED: NIFEdipine E.R. 90 MG TABLET PO ONE (12:59)
[2019-05-11] MEDS ORDERED: NIFEdipine E.R. 30 MG TABLET ONE (13:05)
--- NOTE | 2019-05-11 13:09 | PDOC ---
History of Present Illness - General Chief Complaint: Blood Pressure Problem Stated Complaint: HYPERTENSION Time Seen by Provider: 05/11/19 12:50 - History of Present Illness Initial Comments: Ms. Jensen is a 74 y/o female with PMH of DM, HTN, ESRD, on dialysis T// Fri. She was at her dialysis center today when her sBP was noted to be elevated at 201. She takes nifedipine 90mg daily, but ran out of medications today. Her physician at the dialysis center called in a refill to her pharmacy. She was given 0.1 mg clonidine at the dialysis center. At bedside, sBP improved to 177. She reports no symptoms or complaints. No chest pain/shortness of breath. No headache. No nausea/vomiting. No weakness. No dizziness. No change in vision. Past History - Past Medical History Allergies/Adverse Reactions: Allergies Allergy/AdvReac Type Severity Reaction Status Date / Time No Known Allergies Allergy Verified 03/27/19 13:54 Home Medications: Ambulatory Orders Mirtazapine 45 mg PO HS 08/14/18 Omeprazole 40 mg PO DAILY 08/14/18 Simvastatin 20 mg PO DAILY 08/14/18 Linagliptin [Tradjenta] 5 mg PO DAILY 09/05/18 Ferrous Sulfate [Feosol] 325 mg PO DAILY #30 tab 09/10/18 Aspirin Coated [Ecotrin -] 81 mg PO DAILY 10/23/18 Metoprolol Succinate [Toprol XL -] 100 mg PO DAILY 01/15/19 Nifedipine ER [Procardia XL -] 90 mg PO DAILY 01/15/19 Furosemide [Lasix -] 40 mg PO DAILY 02/01/19 hydrALAZINE HCL [Apresoline -] 100 mg PO TID 02/01/19 Multivitamin [One-Daily Multi-Vitamin] 1 each PO DAILY 02/15/19 Calcitriol [Calcitriol -] 0.25 mcg PO DAILY 05/11/19 Anemia: Yes (on iron) Asthma: No Cancer: No Cardiac Disorders: No CVA: No COPD: No CHF: No Dementia: No Diabetes: Yes GI Disorders: No Disorders: No HTN: Yes Hypercholesterolemia: Yes Liver Disease: No Seizures: No Thyroid Disease: No - Surgical History Abdominal Surgery: No Appendectomy: No Cardiac Surgery: No Cholecystectomy: No Lung Surgery: No Neurologic Surgery: No Orthopedic Surgery: No - Reproductive History Cervical CA: No Dysfunctional Uterine Bleeding: No Ectopic : No Endometrial CA: No Polycystic Ovaries: No Tubal Ligation: No - Immunization History Immunization Up to Date: No - Psycho Social/Smoking Cessation Hx Smoking Status: No Smoking History: Never smoked Have you smoked in the past 12 months: No Number of Cigarettes Smoked Daily: 0 Hx Alcohol Use: No Drug/Substance Use Hx: No Substance Use Type: None Hx Substance Use Treatment: No Review of Systems - Review of Systems Comments:: GENERAL/CONSTITUTIONAL: No fever or chills. No weakness._ HEAD, EYES, EARS, NOSE AND THROAT: No change in vision. No change in hearing. No sore throat._ CARDIOVASCULAR: No chest pain or shortness of breath_ RESPIRATORY: Denies cough, hemoptysis_ GASTROINTESTINAL: No nausea, vomiting, diarrhea or constipation._ GENITOURINARY: No dysuria, frequency, or change in urination._ MUSCULOSKELETAL: No joint or muscle swelling or pain. No neck or back pain._ SKIN: No rash_ NEUROLOGIC: No headache, vertigo, loss of consciousness, or change in strength/ sensation._ ENDOCRINE: No increased thirst. No abnormal weight change_ HEMATOLOGIC/LYMPHATIC: No anemia, easy bleeding, or history of blood clots._ *Physical Exam - Vital Signs Last Vital Signs Temp Pulse Resp BP Pulse Ox 98.4 F 70 24 H 198/65 H 100 05/11/19 12:05 05/11/19 12:05 05/11/19 12:05/11/19 12:05/11/19 12:51 - Physical Exam GENERAL: Awake, alert, and oriented to person/place/time, in no acute distress_ HEAD: No signs of trauma, normoc ephalic, atraumatic _ EYES: PERRLA, EOMI, sclera anicteric, conjunctiva clear_ ENT: Hearing grossly normal, nares patent, oropharynx clear without exudates. No uvular deviation. Moist mucosa_ NECK: Normal ROM, supple, no lymphadenopathy, JVD, or masses_ LUNGS: No distress, speaks in full sentences, clear to auscultation bilaterally _ HEART: Regular rate and rhythm, normal S1 and S2, no murmurs appreciated, peripheral pulses normal and equal bilaterally._ ABDOMEN: Soft, nontender, normoactive bowel sounds. No guarding, no rebound. No masses_ EXTREMITIES: Normal inspection, Normal range of motion, no edema. No clubbing or cyanosis_ NEUROLOGICAL: Cranial nerves II through XII grossly intact. Normal speech, normal gait, no focal sensorimotor deficits _ SKIN: Warm, Dry, normal turgor, no rashes or lesions noted_ ED Treatment Course - LABORATORY CBC & Chemistry Diagram: 05/11/19 13:00 05/11/19 13:00 Medical Decision Making - Medical Decision Making 05/11/19 13:10 74F sent in from dialysis center for sBP of 201. Missed home dose of nifedipine 90 mg today because she ran out of medications. A refill was called into her pharmacy by the dialysis center MD. -cbc, cmp -ekg -ua -nifedipine 90 mg 05/11/19 13:55 EKG shows NSR, 65 bpm, no axis deviation, no ST elevation, QTc 507, no changes from prior in 2018. 05/11/19 14:30 Labs reviewed. Will give home dose of lasix and hydralazine. Laboratory Tests 05/11/19 05/11/19 13:00 13:00 WBC 11.9 H RBC 3.34 L Hgb 9.5 L Hct 29.7 L MCV 89.0 MCH 28.4 MCHC 31.9 L RDW 17.8 H Plt Count 301 D MPV 9.0 Absolute Neuts (auto) 9.6 H Neutrophils % 80.2 Lymphocytes % 11.5 D Monocytes % 6.9 Eosinophils % 1.0 Basophils % 0.4 Nucleated RBC % 0 Sodium 138 Potassium 3.2 L Chloride 103 Carbon Dioxide 29 Anion Gap 7 L BUN 20.4 H Creatinine 2.5 H Est GFR (CKD-EPI)AfAm 21.23 Est GFR (CKD-EPI)NonAf 18.32 Random Glucose 142 H Calcium 8.9 Total Bilirubin 1.0 AST 33 ALT 15 Alkaline Phosphatase 123 H Total Protein 7.3 Albumin 2.6 L 05/11/19 15:48 Pt reassessed. Reports feeling much improved. BP 178/68. Plan to d/c home, continue home meds and dialysis. All questions answered. Return precautions given. Pt verbalized understanding and agreement with plan. Discharge - Discharge Information Problems reviewed: Yes Clinical Impression/Diagnosis: Hypertension Condition: Stable Disposition: HOME - Admission No - Follow up/Referral Referrals: Matthew Dye [Primary Care Provider] - Charly Soto MD [Staff Physician] - - Patient Discharge Instructions Patient Printed Discharge Instructions: DI for High Blood Pressure Additional Instructions: Please continue taking your medications as prescribed. Please continue dialysis as prescribed. If you experience any new, worsening, or concerning symptoms, including dizziness, change in vision, weakness, or any other concerns, please return to the emergency department. - Post Discharge Activity
[2019-05-11 13:37] LABS: BASO % 0.4 % (0-2.0); HEMATOCRIT 29.7 % (32.4-45.2); HEMOGLOBIN 9.5 GM/dL (10.7-15.3); LYMPH % 11.5 % (8-40); MCH 28.4 pg (25.7-33.7); MCHC 31.9 g/dl (32.0-36.0); MONO % 6.9 % (3.8-10.2); NEUT % 80.2 % (42.8-82.8); PLATELET COUNT 301 K/MM3 (134-434); RBC 3.34 M/mm3 (3.60-5.2); RDW 17.8 % (11.6-15.6); WHITE BLOOD COUNT 11.9 K/mm3 (4.0-10.0)
[2019-05-11 14:04] LABS: ALBUMIN 2.6 g/dl (3.4-5.0); BLOOD UREA NITROGEN 20.4 mg/dL (7-18); CALCIUM 8.9 mg/dL (8.5-10.1); CREATININE 2.5 mg/dL (0.55-1.3); POTASSIUM 3.2 mmol/L (3.5-5.1); TOT PROT 7.3 g/dl (6.4-8.2)
[2019-05-11] MEDS ORDERED: hydrALAZINE HCL 50 MG TABLET (FP) PO ONE (14:10)
[2019-05-11] MEDS ORDERED: FUROSEMIDE 40 MG TABLET (FP) PO ONE (14:28)
[2019-05-11] MEDS ORDERED: FUROSEMIDE 40 MG TABLET (FP) ONE (14:33)
--- NOTE | 2019-05-11 16:55 | PDOC ---
Documentation entered by Moshe Brink SCRIBE, acting as scribe for Poli Gonzalez MD. Poli Gonzalez MD: This documentation has been prepared by the [place] Daniel, SCRIBE, under my direction and personally reviewed by me in its entirety. I confirm that the documentation accurately reflects all work, treatment, procedures, and medical decision making performed by me. Attending Attestation - Resident Resident Name: RobiTommy - ED Attending Attestation I have performed the following: I have examined & evaluated the patient, The case was reviewed & discussed with the resident, I agree w/resident's findings & plan, Exceptions are as noted - HPI HPI: 05/11/19 13:53 The patient is a 74 year old female with a past medical history of diabetes, HTN , and ESRD (//Fri) here today for evaluation of elevated blood pressure. The patient was at her dialysis center today when her systolic blood pressure was noted to be in the 200's after her dialysis was finished and was given clonidine. She states that she ran out of her nifedipine yesterday. She also did not take her hydralzine yet today. She currently has no complaints. Patient denies headache, lightheadedness, focal weakness/numbness. Denies fever , chills. Denies chest pain, shortness of breath. Denies nausea, vomiting, diarrhea, abdominal pain. Allergies: NKA PCP: Matthew Dye - Physicial Exam PE: 05/11/19 13:53 Agree with resident exam - Medical Decision Making 05/11/19 16:49 74yo F hx MMP including HTN, ESRD presents to the ED with elevated blood pressure. Pt missed her dose of nifedipine ER yesterday/today and her hydralzine today. Blood pressure elevated in the ED, but pt is asymptomatic. Exam is unremarkable Labs unremarkable. Pt seen by Dr. Soto in the ED. Pt given home doses of hydralzine, nifedipine, and lasix in the ED (She had not taken yet today) with good response. She remained asymptomatic throughout. Elevated BP 2/2 med non compliance. Meds were refilled for her at HD She is well appearing and clinically stable for DC home I discussed the physical exam findings, ancillary test results and final diagnoses with the patient. I answered all of the patient's questions. The patient was satisfied with the care received and felt comfortable with the discharge plan and treatment plan. The patient will call their primary care physician within 24 hours to arrange follow-up and will return to the Emergency Department with any new, persistent or worsening symptoms. Vital Signs - Vital Signs #1 Blood Pressure: 178/68 BP Location: Right Arm Respiratory Rate: 18 Heart Score/ECG Review #1 05/11/19 16:53 Twelve-lead EKG was performed and reviewed by me. Normal sinus rhythm, rate 65. Normal axis. No ST elevations. T wave inversions in V2 V3, and lead III. When compared to EKG from 1 month ago, no significant change.
[2019-05-11 16:56] VITALS: BP 175/66; PULSE 70
--- NOTE | 2019-05-11 20:21 | CONSULT ---
Consult Consult Specialty:: Nephrology Reason for Consultation:: ESRD - History of Present Illness Chief Complaint: htn History of Present Illness: Pt is a 74 year old female with pmhx of esrd, dm, and htn who was sent to the hospital from HD for HTN. She was found to be hypertensive with systolic bp of greater than 200. She was given clonidine with no response. Pt was sent in for eval. She is on multiple BP meds. She was out of her procardia and hydralazine. She also did not take her metoprolol. Her bp meds were restarted in the ER with improvement in her BP. She says she feels well and wants to go home. SHe denies headache, chest pain or shortness of breath. - History Source History Provided By: Patient - Past Medical History Cardio/Vascular: Yes: HTN, Hyperlipdemia Gastrointestinal: Yes: GERD Renal/: Yes: Renal Inusuff, Hemodialysis, Other (CKD) Endocrine: Yes: Diabetes Mellitus - Past Surgical History Past Surgical History: Yes: None - Alcohol/Substance Use Hx Alcohol Use: No History of Substance Use: reports: None - Smoking History Smoking history: Never smoked Have you smoked in the past 12 months: No Aproximately how many cigarettes per day: 0 - Social History Usual Living Arrangement: Alone (alone in elevator apartment without stairs) ADL: Independent (Independent in ADLs, ambulated with RW) History of Recent Travel: No Home Medications - Allergies Allergies/Adverse Reactions: Allergies Allergy/AdvReac Type Severity Reaction Status Date / Time No Known Allergies Allergy Verified 03/27/19 13:54 - Home Medications Home Medications: Ambulatory Orders RX: Mirtazapine 45 mg PO HS 08/14/18 RX: Omeprazole 40 mg PO DAILY 08/14/18 RX: Simvastatin 20 mg PO DAILY 08/14/18 RX: Linagliptin [Tradjenta] 5 mg PO DAILY 09/05/18 RX: Ferrous Sulfate [Feosol] 325 mg PO DAILY #30 tab 09/10/18 RX: Aspirin Coated [Ecotrin -] 81 mg PO DAILY 10/23/18 RX: Metoprolol Succinate [Toprol XL -] 100 mg PO DAILY 01/15/19 RX: Nifedipine ER [Procardia XL -] 90 mg PO DAILY 01/15/19 RX: Furosemide [Lasix -] 40 mg PO DAILY 02/01/19 RX: hydrALAZINE HCL [Apresoline -] 100 mg PO TID 02/01/19 RX: Multivitamin [One-Daily Multi-Vitamin] 1 each PO DAILY 02/15/19 RX: Calcitriol [Calcitriol -] 0.25 mcg PO DAILY 05/11/19 Family Medical History Family History: Denies Review of Systems - Review of Systems Constitutional: reports: No Symptoms Eyes: reports: No Symptoms HENT: reports: No Symptoms Neck: reports: No Symptoms Cardiovascular: reports: No Symptoms Respiratory: reports: No Symptoms Gastrointestinal: reports: No Symptoms Genitourinary: reports: No Symptoms Musculoskeletal: reports: No Symptoms Integumentary: reports: No Symptoms Neurological: reports: No Symptoms Endocrine: reports: No Symptoms Hematology/Lymphatic: reports: No Symptoms Psychiatric: reports: No Symptoms Physical Exam Vital Signs: Vital Signs Temperature 98.4 F 05/11/19 12:05 Pulse Rate 70 05/11/19 16:55 Respiratory Rate 20 05/11/19 16:55 Blood Pressure 175/66 H 05/11/19 16:55 O2 Sat by Pulse Oximetry (%) 100 05/11/19 16:55 Constitutional: Yes: Calm Eyes: Yes: Conjunctiva Clear HENT: Yes: Atraumatic Neck: Yes: Supple Cardiovascular: Yes: S1, S2 Respiratory: Yes: CTA Bilaterally Gastrointestinal: Yes: Soft Renal/: Yes: WNL Musculoskeletal: Yes: WNL Edema: Yes Edema: LLE: 1+, RLE: 1+ Neurological: Yes: Oriented Psychiatric: Yes: Oriented Labs: CBC, BMP 05/11/19 13:00 05/11/19 13:00 Problem List - Problems (1) ESRD on dialysis Code(s): N18.6 - END STAGE RENAL DISEASE; Z99.2 - DEPENDENCE ON RENAL DIALYSIS (2) HTN (hypertension) Code(s): I10 - ESSENTIAL (PRIMARY) HYPERTENSION Assessment/Plan Impression 1. ESRD 2. HTN 3. DM 4. non compliance with meds 5. gerd 6. anemia Plan - resume bp meds - will give nifedipine, hydralazine and lasix - labs are post HD - discussed compliance with meds - meds were sent to her pharmacy - pt eager to go home, instructed to return if bp elevated or if she has any symptoms such as headache or weakness - discussed with ER
--- NOTE | 2019-05-12 11:22 | EKG ---
Test Reason : Blood Pressure : / mmHG Vent. Rate : 065 BPM Atrial Rate : 065 BPM P-R Int : 172 ms QRS Dur : 086 ms QT Int : 488 ms P-R-T Axes : 044 -06 007 degrees QTc Int : 507 ms NORMAL SINUS RHYTHM POSSIBLE LEFT ATRIAL ENLARGEMENT LEFT VENTRICULAR HYPERTROPHY T WAVE ABNORMALITY, CONSIDER ANTERIOR ISCHEMIA ABNORMAL ECG WHEN COMPARED WITH ECG OF 27-MAR-2019 15:21, PREMATURE VENTRICULAR COMPLEXES ARE NO LONGER PRESENT NONSPECIFIC T WAVE ABNORMALITY NO LONGER EVIDENT IN LATERAL LEADS Confirmed by Tommy Kan MD ([id number]) on 05/12/2019 11:22:17 AM Referred By: Confirmed By:Tommy Kan MD
== END 2019-05-11 17:45 | disposition home or self-care (01) ==
LOC: JER 12:03
DX: I12.0 Hypertensive chronic kidney disease with stage 5 chronic kidney disease or end stage renal disease (principal); E11.22 Type 2 diabetes mellitus with diabetic chronic kidney disease; N18.6 End stage renal disease; N17.8 Other acute kidney failure; Z99.2 Dependence on renal dialysis; D64.9 Anemia, unspecified; E78.5 Hyperlipidemia, unspecified; K21.9 Gastro-esophageal reflux disease without esophagitis; Z79.84 Long term (current) use of oral hypoglycemic drugs; Z91.14 Patient's other noncompliance with medication regimen
CPT/HCPCS: 36415; 80053; 85025; 93005; 93010; 99284-25

== ENCOUNTER 2021-09-18 10:15 | Inpatient (IN) | payer MEDICARE, OTHER ==
[2021-09-18 12:34] LABS: BASO % 0.7 % (0-2.0); EOS % 1.8 % (0-4.5); HEMATOCRIT 33.5 % (32.4-45.2); HEMOGLOBIN 10.8 GM/dL (10.7-15.3); MCH 30.3 pg (25.7-33.7); MCHC 32.4 g/dl (32.0-36.0); MEAN CELL VOLUME 93.6 fl (80-96); MEAN PLT VOLUME 7.9 fl (7.5-11.1); MONO % 6.5 % (3.8-10.2); PLATELET COUNT 358 10^3/uL (134-434); RBC 3.57 M/mm3 (3.60-5.2); RDW 19.3 % (11.6-15.6); WHITE BLOOD COUNT 7.4 K/mm3 (4.0-10.0)
[2021-09-18 12:36] LABS: INR 0.97 (0.83-1.09); PROTHROMBIN TIME (PATIENT) 11.2 SEC (9.7-13.0)
[2021-09-18 12:39] LABS: ACTIVATED PTT 34.8 SECONDS (25.2-36.5)
[2021-09-18 13:01] LABS: CHLORIDE 101 mmol/L (98-107); SODIUM 137 mmol/L (136-145)
[2021-09-18 13:04] LABS: CALCIUM 9.2 mg/dL (8.5-10.1)
[2021-09-18 13:05] LABS: ALBUMIN 3.6 g/dl (3.4-5.0); ANION GAP 13 MMOL/L (8-16); BLOOD UREA NITROGEN 65.7 mg/dL (7-18); CO2 22 mmol/L (21-32); GLUCOSE,RANDOM 106 mg/dL (74-106); MAGNESIUM 2.9 mg/dL (1.8-2.4)
[2021-09-18 13:08] LABS: PHOSPHOROUS 6.7 mg/dL (2.5-4.9); SGOT/AST 19 U/L (15-37); SGPT/ALT 14 U/L (13-61)
[2021-09-18 13:09] LABS: BILIRUBIN,TOTAL 0.5 mg/dL (0.2-1); TOT PROT 7.7 g/dl (6.4-8.2)
[2021-09-18 13:11] LABS: ALK PHOS 115 U/L (45-117); CREATININE 7.7 mg/dL (0.55-1.3)
[2021-09-18] MEDS ORDERED: SODIUM ZIRCONIUM CYCLOSILICATE (LOKELMA) 5 GM PACKET PO SCH (14:15)
[2021-09-18] MEDS ORDERED: SODIUM ZIRCONIUM CYCLOSILICATE (LOKELMA) 5 GM PACKET ONE (15:53)
[2021-09-18] MEDS ORDERED: FUROSEMIDE 40 MG/4 ML INJECTABLE VIAL IVPUSH ONE (16:29)
[2021-09-18] MEDS ORDERED: SODIUM CHLORIDE 250 ML IV PRN (16:31)
[2021-09-18] MEDS: SODIUM ZIRCONIUM CYCLOSILICATE (LOKELMA) 5 GM PACKET PO ONE ×6 (16:32→17:21)
[2021-09-18] MEDS ORDERED: FUROSEMIDE 40 MG/4 ML INJECTABLE VIAL ONE (16:48)
[2021-09-18] MEDS ORDERED: SODIUM ZIRCONIUM CYCLOSILICATE (LOKELMA) 5 GM PACKET PO ONE ×2 (22:00)
[2021-09-19] MEDS ORDERED: hydrALAZINE HCL 50 MG TABLET (FP) ONE (08:16)
[2021-09-19] MEDS: hydrALAZINE HCL 50 MG TABLET (FP) PO SCH ×2 (08:22→14:00)
[2021-09-19] MEDS ORDERED: FERROUS SO4 325 MG TABLET (FP) ONE (09:38)
[2021-09-19] MEDS ORDERED: NIFEdipine E.R. 90 MG TABLET PO SCH (10:00)
[2021-09-19] MEDS ORDERED: FERROUS SO4 325 MG TABLET (FP) PO SCH (10:00)
[2021-09-19] MEDS: HEPARIN NA (PORCINE) 5,000 UNITS/ML 1ML VIAL SQ SCH (10:37)
[2021-09-19 10:40] LABS: HEMOGLOBIN 10.6 GM/dL (10.7-15.3); MCH 30.2 pg (25.7-33.7); MCHC 32.2 g/dl (32.0-36.0); MEAN CELL VOLUME 93.9 fl (80-96); MEAN PLT VOLUME 7.8 fl (7.5-11.1); PLATELET COUNT 337 10^3/uL (134-434); RBC 3.52 M/mm3 (3.60-5.2); RDW 18.8 % (11.6-15.6); WHITE BLOOD COUNT 8.1 K/mm3 (4.0-10.0)
[2021-09-19 10:56] LABS: CHLORIDE 105 mmol/L (98-107); SODIUM 138 mmol/L (136-145)
[2021-09-19 11:08] LABS: GLUCOSE,RANDOM 80 mg/dL (74-106)
[2021-09-19 11:10] LABS: ANION GAP 11 MMOL/L (8-16); CALCIUM 8.8 mg/dL (8.5-10.1); CO2 21 mmol/L (21-32)
[2021-09-19 11:12] LABS: CREATININE 8.3 mg/dL (0.55-1.3)
[2021-09-19] MEDS ORDERED: HEPARIN NA (PORCINE) 5,000 UNITS/ML 1ML VIAL ONE (15:46)
[2021-09-19] MEDS ORDERED: ACETAMINOPHEN 1000 MG/100 ML BAG IVPB ONE (16:29)
[2021-09-19] MEDS ORDERED: ACETAMINOPHEN INJECTION 100 ML IVPB ONE (16:30)
[2021-09-19] MEDS ORDERED: MIDAZOLAM HCL 2 MG/2 ML SINGLE DOSE VIAL ONE (17:01)
[2021-09-19] MEDS ORDERED: PROPOFOL 20 ML ONE (17:01)
[2021-09-19] MEDS ORDERED: LIDOCAINE HCL 2% 100 MG/5 ML DISP.SYRIN ONE (17:01)
[2021-09-19] MEDS ORDERED: LIDOCAINE HCL 1%, 10 MG/ML (20ML VIAL) INF ONE (18:13)
[2021-09-19] MEDS ORDERED: POVIDONE-IODINE OINTMENT 10% - 28.4 GM TUBE ONE (18:28)
[2021-09-19] MEDS ORDERED: ONDANSETRON 4 MG/2 ML VIAL IVPUSH PRN (18:47)
[2021-09-19] MEDS ORDERED: ATORVASTATIN CA 10 MG TABLET (FP) PO SCH (22:00)
[2021-09-20] MEDS ORDERED: SODIUM CHLORIDE 250 ML IV PRN (00:03)
[2021-09-20] MEDS: HEPARIN NA (PORCINE) 5,000 UNITS/ML 1ML VIAL SQ SCH ×3 (00:05→21:52)
[2021-09-20] MEDS: hydrALAZINE HCL 50 MG TABLET (FP) PO SCH ×5 (00:05→21:51)
[2021-09-20] MEDS ORDERED: hydrALAZINE HCL 50 MG TABLET (FP) PO ONE (01:15)
[2021-09-20 07:46] VITALS: BMI 15.5
[2021-09-20] MEDS: NIFEdipine E.R. 90 MG TABLET PO SCH (10:56)
[2021-09-20] MEDS: FERROUS SO4 325 MG TABLET (FP) PO SCH (10:57)
[2021-09-20] MEDS ORDERED: cefTRIAXone SODIUM 1 GM VIAL ONE (12:38)
[2021-09-20] MEDS ORDERED: DEXTROSE 5%-WATER - 50 ML IVPB ONE (12:39)
[2021-09-20] MEDS: CEFTRIAXONE 1 GM in DEXTROSE 5%-WATER - 50 ML IVPB SCH (13:03)
[2021-09-20] MEDS: ACETAMINOPHEN 325 MG TABLET (FP) PO PRN ×2 (13:03→19:24)
[2021-09-20 15:57] LABS: CALCIUM 8.4 mg/dL (8.5-10.1)
[2021-09-20 16:01] LABS: CREATININE 5.3 mg/dL (0.55-1.3)
[2021-09-20] MEDS: ATORVASTATIN CA 10 MG TABLET (FP) PO SCH (21:51)
[2021-09-21] MEDS: hydrALAZINE HCL 50 MG TABLET (FP) PO SCH ×3 (06:12→21:18)
[2021-09-21] MEDS ORDERED: SODIUM CHLORIDE 250 ML IV PRN (08:15)
[2021-09-21] MEDS ORDERED: EPOETIN ALFA-EPBX 2,000 UNIT/ML VIAL SQ ONE (08:15)
[2021-09-21] MEDS: HEPARIN NA (PORCINE) 5,000 UNITS/ML 1ML VIAL IVPUSH ONE ×2 (08:45→13:40)
[2021-09-21 09:32] LABS: HEMATOCRIT 30.4 % (32.4-45.2); HEMOGLOBIN 9.9 GM/dL (10.7-15.3); MCH 30.3 pg (25.7-33.7); MCHC 32.7 g/dl (32.0-36.0); MEAN CELL VOLUME 92.9 fl (80-96); MEAN PLT VOLUME 8.5 fl (7.5-11.1); PLATELET COUNT 264 10^3/uL (134-434); RBC 3.28 M/mm3 (3.60-5.2); RDW 18.1 % (11.6-15.6); WHITE BLOOD COUNT 6.3 K/mm3 (4.0-10.0)
[2021-09-21] MEDS: HEPARIN NA (PORCINE) 5,000 UNITS/ML 1ML VIAL IVPUSH SCH ×3 (09:45→11:30)
[2021-09-21 10:01] LABS: CALCIUM 8.2 mg/dL (8.5-10.1)
[2021-09-21 10:02] LABS: BLOOD UREA NITROGEN 54.4 mg/dL (7-18)
[2021-09-21 10:04] LABS: CREATININE 6.5 mg/dL (0.55-1.3)
[2021-09-21 10:06] LABS: BILIRUBIN,TOTAL 0.3 mg/dL (0.2-1); TOT PROT 6.2 g/dl (6.4-8.2)
[2021-09-21 10:30] LABS: ALBUMIN 2.7 g/dl (3.4-5.0)
[2021-09-21] MEDS ORDERED: DEXTROSE 5%-WATER - 50 ML IVPB ONE (12:16)
[2021-09-21] MEDS ORDERED: cefTRIAXone SODIUM 1 GM VIAL ONE (12:16)
[2021-09-21] MEDS: NIFEdipine E.R. 90 MG TABLET PO SCH (12:54)
[2021-09-21] MEDS: FERROUS SO4 325 MG TABLET (FP) PO SCH (12:55)
[2021-09-21] MEDS: CEFTRIAXONE 1 GM in DEXTROSE 5%-WATER - 50 ML IVPB SCH (12:56)
[2021-09-21] MEDS: HEPARIN NA (PORCINE) 5,000 UNITS/ML 1ML VIAL SQ SCH ×2 (12:57→21:19)
[2021-09-21] MEDS: ATORVASTATIN CA 10 MG TABLET (FP) PO SCH (21:18)
[2021-09-22] MEDS: ACETAMINOPHEN 325 MG TABLET (FP) PO PRN (05:51)
[2021-09-22] MEDS: hydrALAZINE HCL 50 MG TABLET (FP) PO SCH ×2 (05:52→14:39)
[2021-09-22] MEDS ORDERED: SODIUM CHLORIDE 250 ML IV PRN (08:19)
[2021-09-22] MEDS ORDERED: HEPARIN NA (PORCINE) 5,000 UNITS/ML 1ML VIAL IVPUSH ONE (08:30)
[2021-09-22] MEDS ORDERED: EPOETIN ALFA-EPBX 4,000 UNIT/ML VIAL IVPUSH ONE (09:00)
[2021-09-22] MEDS: HEPARIN NA (PORCINE) 5,000 UNITS/ML 1ML VIAL IVPUSH SCH ×3 (09:34→11:27)
[2021-09-22 10:31] VITALS: TEMP 97.7
[2021-09-22 10:57] LABS: HEMATOCRIT 29.6 % (32.4-45.2); HEMOGLOBIN 9.8 GM/dL (10.7-15.3); MCH 30.7 pg (25.7-33.7); MEAN CELL VOLUME 93.1 fl (80-96); MEAN PLT VOLUME 9.1 fl (7.5-11.1); PLATELET COUNT 236 10^3/uL (134-434); RBC 3.18 M/mm3 (3.60-5.2); RDW 17.6 % (11.6-15.6); WHITE BLOOD COUNT 3.7 K/mm3 (4.0-10.0)
[2021-09-22 11:14] LABS: BLOOD UREA NITROGEN 35.3 mg/dL (7-18); CALCIUM 8.3 mg/dL (8.5-10.1)
[2021-09-22 11:18] LABS: CREATININE 4.3 mg/dL (0.55-1.3)
[2021-09-22] MEDS ORDERED: DEXTROSE 5%-WATER - 50 ML IVPB ONE (12:53)
[2021-09-22] MEDS ORDERED: cefTRIAXone SODIUM 1 GM VIAL ONE (12:53)
[2021-09-22 12:54] VITALS: PULSE 59
[2021-09-22 12:55] VITALS: BP 134/56
[2021-09-22] MEDS: NIFEdipine E.R. 90 MG TABLET PO SCH (13:06)
[2021-09-22] MEDS: FERROUS SO4 325 MG TABLET (FP) PO SCH (13:06)
[2021-09-22] MEDS: HEPARIN NA (PORCINE) 5,000 UNITS/ML 1ML VIAL SQ SCH (13:09)
[2021-09-22] MEDS: CEFTRIAXONE 1 GM in DEXTROSE 5%-WATER - 50 ML IVPB SCH (13:11)
== END 2021-09-22 16:29 | disposition home or self-care (01) | DRG 673 ==
LOC: JER 10:15 → JERBED 13:35 → J8W 09-19 23:53
PROVIDERS: ADMIT Internal Medicine; ATTEND Internal Medicine
PROC: 05CY0ZZ Extirpation of Matter from Upper Vein, Open Approach (ICD-10-PCS; principal; 2021-09-19 17:00)
PROC: 5A1D70Z Performance of Urinary Filtration, Intermittent, Less than 6 Hours Per Day (ICD-10-PCS; 2021-09-21)
DX: T82.41XA Breakdown (mechanical) of vascular dialysis catheter, initial encounter (principal); N18.6 End stage renal disease; I12.0 Hypertensive chronic kidney disease with stage 5 chronic kidney disease or end stage renal disease; Y83.9 Surgical procedure, unspecified as the cause of abnormal reaction of the patient, or of later complication, without mention of misadventure at the time of the procedure; K21.9 Gastro-esophageal reflux disease without esophagitis; E11.9 Type 2 diabetes mellitus without complications; R50.9 Fever, unspecified; E78.5 Hyperlipidemia, unspecified; E87.5 Hyperkalemia
CPT/HCPCS: 36415; 74018-TC-FY; 76000-TC-FY; 80048; 80053; 83735; 84100; 85025; 85027; 85610; 85730; 86803; 86850; 86900; 86901; 87040; 87340; 93005; 93010; 94010; 94760; 99285-25; C9803-CS; J1644; Q5106; U0003; U0005

== ENCOUNTER 2024-08-20 21:27 | Emergency (ER) | payer MEDICARE, OTHER ==
[2024-08-20 21:46] VITALS: BP 138/60; PULSE 74; RESP 16; TEMP 98.3; BMI 14.6
[2024-08-20] MEDS ORDERED: DIPHTH,PERTUSS(ACELL),TET 0.5 ML DISP.SYRIN IM ONE (23:04)
[2024-08-20] MEDS ORDERED: ACETAMINOPHEN 325 MG TABLET (FP) ONE (23:10)
[2024-08-20] MEDS: ACETAMINOPHEN 500 MG TABLET (FP) PO ONE (23:24)
[2024-08-20] MEDS: BACITRACIN ZINC 15 GM TUBE TOPICAL OINTMENT TP ONE (23:24)
[2024-08-20] MEDS: DIPHTH,PERTUSS(ACELL),TET 0.5 ML DISP.SYRIN IM ONE (23:25)
[2024-08-20] MEDS ORDERED: CEPHALEXIN MONOHYDRATE 500 MG CAPSULE (UD) ONE (23:46)
[2024-08-20] MEDS: CEPHALEXIN MONOHYDRATE 500 MG CAPSULE (UD) PO ONE (23:49)
== END 2024-08-21 00:04 | disposition home or self-care (01) ==
LOC: JER 21:27
PROC: 3E0234Z Introduction of Serum, Toxoid and Vaccine into Muscle, Percutaneous Approach (ICD-10-PCS; principal; 2024-08-20)
DX: S01.81XA Laceration without foreign body of other part of head, initial encounter (principal); Z23 Encounter for immunization; W01.198A Fall on same level from slipping, tripping and stumbling with subsequent striking against other object, initial encounter
CPT/HCPCS: 70450-TC; 70486-TC; 72125-TC; 90471; 90715; 99285-25